=== PATIENT | male | born 1945 | race Caucasian/White ===

== ENCOUNTER 2016-09-14 15:39 | Inpatient (IN) | payer OTHER ==
--- NOTE | 2016-09-14 16:17 | DX ---
PA and lateral chest. September 14, 2016. Clinical History: Lung biopsy last Monday, chest pain. Comparison Study: None available. Findings: There is a 2.8 cm nodule in the left upper lobe. A small left apical pneumothorax is estima amado at 10%, with minimal tracking laterally. There is a small associated pleural effusion on the left . Right lung is clear. Heart size is normal.. Impression: Left upper lobe nodule. Small left apical pneumothorax with small left pleural effusion. Results called to Dr. Melissa Linares at 4:15 PM.
--- NOTE | 2016-09-14 16:27 | EDPHY ---
H & P Stated Complaint: +SOB wants CXR Lung CA Source: Patient, Family Exam Limitations: No limitations - Personal History Current Tetanus/Diphtheria Vaccine: Unsure Current Tetanus Diphtheria and Acellular Pertussis (TDAP): Unsure Tetanus Vaccine Date: 2007 - Medical/Surgical History Hx Asthma: No Hx Chronic Respiratory Disease: No Hx Diabetes: No Hx Cardiac Disease: No Hx Renal Disease: No Hx Cirrhosis: No Hx Alcoholism: No Hx HIV/AIDS: No Hx Splenectomy or Spleen Trauma: No Other PMH: pmh- uriticaria, enlarged prostate, hld - Social History Smoking Status: Never smoked HPI/ROS: CHIEF COMPLAINT: Possible pneumothorax HISTORY OF PRESENT ILLNESS: on Monday patient underwent a video-assisted thorascopic surgery for lung biopsy due to mass. He was discharged home stable condition. He felt well until late last night. Last night he started using CPAP the 1st time in months, at that time he noted some discomfort and shortness of breath. He turned off the CPAP and quickly felt much better. He had a PET scan earlier this morning, on that they noted a possible pneumothorax in the left apex. He was sent here by his oncologist to further delineate this. Right now he is resting comfortable with no shortness of breath. Does have some changes in his voice over the past few weeks but no fever. No chills. no modifying factors.also has a right-sided PE and was diagnosed initially on August 29. He does not know because of the size it was, but he is on Lovenox once daily for this. He has not taken today's dose. Exam and no other associated complaints or modifying factors REVIEW OF SYSTEMS: Ten systems reviewed and are negative unless otherwise noted in the HPI EXAMINATION General Appearance: Alert, no distress Head: normocephalic, atraumatic Eyes: Pupils equal and round, no conjunctival pallor or injection ENT, Mouth: Mucous membranes moist Neck: Normal inspection, supple, non-tender Respiratory: Lungs are clear to auscultation. Mild diminished on the left. No consolidation, wheezing or rhonchi Cardiovascular: Regular rate and rhythm. No murmur. Pulses intact distally and symmetrically Gastrointestinal: Abdomen is soft and nontender Back: non-tender, no bony abnormalities Neurological: A&O, nonfocal, normal gait Skin: Warm and dry, no rash Extremities: Nontender, no pedal edema Psychiatric: Mood and affect normal DIFFERENTIAL DIAGNOSES: Including but not limited to pneumothorax, pneumonia, bronchitis, pleurisy, PE , lung carcinoma MDM: 4:32 p.m. Recent lung biopsy with pneumothorax on PET scan that is confirmed on x-ray. We were notified by Radiology at 4:13 p.m. that there is a small, left apical pneumothorax. I immediately went to evaluate the patient. Resting comfortably in no acute distress. Vital signs are stable. Does note some mild discomfort of the chest with deep breaths but rest there is no pain. He has no shortness of breath At rest but does have dyspnea on exertion. No fever or chills. No cough or congestion. During my examination he was not on pulse oximetry, thus I put him on it. He was immediately noted to be 85% on room air, thus I placed him on 2 L nasal cannula. immediately improved to 98%. When oxygen is removed, he cycles from 82% to 94%. he remains comfortable without any complaints during this. 4:40 pm I have discussed the case with Dr. Clifton. who is aware of the radiology findings. I informed the patient resting comfortably at this time. He has been off of oxygen for several minutes and remains well above 90%. Discussed that the patient needs repeat x-ray tomorrow morning, but he would have to return to the emergency department immediately should he have any chest pain or worsening shortness of breath. At this time, Dr. Linares is at bedside 4:55 p.m. patient was ambulated with assistance and felt very short of breath. His pulse oximetry was reading in the 80 percentile, 85-89. Thus we will proceed with admission. I have I have just now updated Dr. Clifton, and I will admitted to the hospitalist. 5:15pm I discussed the case with the hospitalist. We did briefly consider sending the patient home with oxygen, with the patient and his significant other at bedside are comfortable with this plan. He will be admitted to the hospital for observation and repeat chest x-ray in the morning with oxygen therapy. He will be admitted by Dr. Naranjo in stable condition. No indication for chest thoracostomy at this time. SUPERVISION:Patient was evaluated in conjunction with the supervising physician. Please see their note for details. (Judson Vargas) Constitutional: Initial Vital Signs Temperature (C) 97.9 F 09/14/16 15:41 Heart Rate 85 09/14/16 15:41 Respiratory Rate 14 09/14/16 15:41 Blood Pressure 102/74 09/14/16 15:41 O2 Sat (%) 91 L 09/14/16 15:41 O2 Delivery Mode Room Air Allergies/Adverse Reactions: Sulfa (Sulfonamide Antibiotics) Allergy (Unknown, Verified 12/25/14 17:21) Home Medications: Medication Instructions Recorded Ascorbic Acid [Vitamin C 500 mg 500 mg PO DAILY 10/17/12 (OTC)] Cholecalciferol Vit D3 [Vitamin D3 5,000 units PO DAILY 10/17/12 1000 units (OTC)] Dutasteride [Avodart 0.5 MG (RX)] 0.5 mg PO HS 10/17/12 Herbals/Supplements -Info Only 1 each PO AD 10/17/12 Multivitamins [Tab-A-Sanford] 1 each PO DAILY 10/17/12 Morrison-3 Fatty Acids/Fish Oil [Fish 1 each PO DAILY 10/17/12 Oil 1,200 mg Softgel] Pharmacy Completed 10/17/12 10/17/12 EPINEPHrine [Epipen 0.3 MG] 0.3 mg IM ONCE #2 syr 12/18/14 predniSONE [prednisone 20mg (RX)] 3 tab PO DAILY #15 tab 12/18/14 Lexapro 12/25/14 Medical Decision Making ED Course/Re-evaluation: This patient was seen and examined by me. Chest is clear to auscultation. Chest x-ray reveals a small pneumothorax on the left. Oxygen saturation is 90% on room air and fluctuates down to 82%. Patient ambulated throughout the emergency department, felt short of breath and his oxygen saturation was 88-90% . He will be admitted to the hospitalist service. He does not require tube thoracostomy tonight. (Melissa Linares) Departure - Departure Disposition: [facility] Acute Clinical Impression: Pneumothorax after biopsy Carcinoma, lung Qualifiers: Qualifier Code: (C34.90) Malignant neoplasm of unspecified part of unspecified bronchus or lung Pulmonary embolism Qualifiers: Qualifier Code: (I26.99) Other pulmonary embolism without acute cor pulmonale Condition: Good Instructions: Traumatic Pneumothorax (ED) Referrals: David Damian MD [Primary Care Provider] - As per Instructions
--- NOTE | 2016-09-14 18:34 | GHP ---
[f rep st] HISTORY AND PHYSICAL DATE OF ADMISSION: 09/14/2016 HISTORY OF PRESENT ILLNESS: The patient is a 71-year-old gentleman with newly diagnosed lung cancer who presents with shortness of breath. The patient had a PET scan today where an incidental pneumoth orax was noted. He was advised to come to the emergency department. Notably, he has gotten his care at [place] but came to the hospital here today. Chest x-ray confirmed 10% pneumothorax. He notes some shortness of breath. Pneumothorax on the left side. Has some pain on the right side. He had a pul monary embolism on the right side diagnosed in [place], for which he is taking Lovenox once daily. I suspect this is 1.5 mg/kg daily. He has had no hemoptysis, no fever, chills, lightheadedness, dizziness. He has just been diagnosed with lung cancer. He does not have a plan for treatment yet. REVIEW OF SYSTEMS: Complete 10-point review of systems conducted, negative, except as noted in the H PI. PAST MEDICAL HISTORY: 1. Pulmonary embolism, clot burden unknown. There was DVT associated with this below the knee. 2. Obstructive sleep apnea. 3. Recent diagnosis of lung cancer. 4. Benign prostatic hypertrophy. ALLERGIES: Sulfa. MEDICATIONS: Home medications have not been reconciled. The list is 4 years old, so likely to be in accurate. Does include Lovenox. SOCIAL HISTORY: Lifelong nonsmoker. Drinks wine minimally. 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 FAMILY HISTORY: Parents . PHYSICAL EXAM: VITAL SIGNS: Temp 36.6, blood pressure 102/74, pulse 85, breathing 14 times a minute , 91% on room air. Desaturating into the low 80s with ambulation. GENERAL: No acute distress. SUKHWINDER NT: Sclerae anicteric. Oropharynx clear. Mucous membranes are moist. NECK: Supple, without lymph adenopathy or JVD. LUNGS: Clear to auscultation bilaterally. HEART: S1, S2. ABDOMEN: Soft, nont nelly, nondistended. LOWER EXTREMITIES: No edema. Calves nontender. SKIN: Without rash. NEUROLO GIC: Exam is grossly nonfocal. LABS: None. Chest x-ray, interpreted by me, shows 10% pneumothorax on the left. There are no visib le pulmonary lesions. There is no shift of the mediastinum. I discussed the case with ANGELIKA Pritchett, in the emergency department. ASSESSMENT/PLAN: A 71-year-old gentleman with recent pulmonary embolism, recent diagnosis of lung ca ncer, and postprocedural pneumothorax. 1. Pneumothorax. Admit the patient for observation, chest x-ray in the morning. We will provide ox ygen supplemental therapy. 2. Pulmonary embolism. Continue Lovenox when medications have been reconciled. 3. Lung cancer. He has outpatient followup with Oncology. 4. Prophylaxis, therapeutically anticoagulated. 5. Hypoxia, attributable to the small pneumothorax, as well as some lung disease and recent pulmonar y embolism. 6. Disposition: Observation status. /[id number]/MODL
[2016-09-14 18:58] LABS: % IMMATURE GRANULYOCYTES 0.5 % (0.0-1.1); ABSOLUTE IMMATURE GRANULOCYTES 0.07 10^3/uL (0.00-0.10); ADD DIFF? NO; ADD MORPH? NO; ADD SCAN? NO; ATYPICAL LYMPHOCYTE FLAG 0 (0-99); FRAGMENT RBC FLAG 0 (0-99); HEMATOCRIT 41.5 % (40.0-51.0); HEMOGLOBIN 13.8 g/dL (13.7-17.5); LEFT SHIFT FLG 0 (0-99); LIPEMIA HEMOLYSIS FLAG 80 (0-99); MEAN CELL HEMOGLOBIN 29.2 pg (27.9-34.1); MEAN CELL HEMOGLOBIN CONCENTR. 33.3 g/dL (32.4-36.7); MEAN CELL VOLUME 87.9 fL (81.5-99.8); MEAN PLATELET VOLUME 10.9 fL (8.7-11.7); PLATELET CLUMPS FLAG 0 (0-99); PLATELET COUNT 267 10^3/uL (150-400); RED BLOOD CELL COUNT 4.72 10^6/uL (4.40-6.38); RED CELL DISTRIBUTION WIDTH 12.8 % (11.5-15.2)
[2016-09-14] MEDS ORDERED: NON-FORMULARY NEW DRUG (Mirtazapine [Mirtazapine] 15 MG) PO PRN (19:03)
[2016-09-14] MEDS ORDERED: MIRTAZAPINE 15 MG TAB PO PRN (19:10)
[2016-09-14 19:22] LABS: ANION GAP 12 mEq/L (8-16); CALCIUM 9.8 mg/dL (8.5-10.4); CARBON DIOXIDE 27 mEq/l (22-31); CHLORIDE 102 mEq/L (97-110); CREATININE 1.2 mg/dL (0.7-1.3); GLOMERULAR FILTRATION RATE 60; GLUCOSE 88 mg/dL (70-100); POTASSIUM 4.3 mEq/L (3.5-5.2); SODIUM 141 mEq/L (134-144)
[2016-09-14] MEDS: traZODone 50 MG TAB PO SCH (21:27)
[2016-09-14] MEDS: oxyCODONE IR 5 MG TAB PO PRN (21:33)
[2016-09-14] MEDS: DUTASTERIDE 0.5 MG CAP PO SCH (22:10)
--- NOTE | 2016-09-14 23:59 | CPEKG ---
Heart Rate: 89 RR Interval: 674 P-R Interval: 160 QRSD Interval: 94 QT Interval: 356 QTC Interval: 434 P Lindale: 70 QRS [place]: 42 T Wave [place]: -3 EKG Severity - BORDERLINE ECG - EKG Impression: SINUS RHYTHM EKG Impression: BORDERLINE T ABNORMALITIES, DIFFUSE LEADS Electronically Signed By: Andrea Blas 15-Sep-2016 18:12:26
[2016-09-15] MEDS ORDERED: HYDROmorphONE/DILAUDID 2 MG/ML SYR IVP PRN (00:39)
[2016-09-15] MEDS ORDERED: HYDROmorphONE/DILAUDID 2 MG/ML SYR ONE (00:43)
[2016-09-15] MEDS: HYDROmorphONE/DILAUDID 1 MG/ML SYR IVP PRN ×5 (00:45→21:27)
[2016-09-15] MEDS: oxyCODONE IR 5 MG TAB PO PRN ×3 (07:41→18:13)
[2016-09-15] MEDS: MAGNESIUM OXIDE 400 MG TAB PO SCH (07:43)
[2016-09-15] MEDS: MULTIVITAMINS 1 EACH TAB PO SCH (07:44)
[2016-09-15] MEDS: ATORVASTATIN CALCIUM 20 MG TAB PO SCH (07:44)
[2016-09-15] MEDS: TRIAMTERENE/HCTZ 37.5/25 1 EACH CAP PO SCH (07:44)
--- NOTE | 2016-09-15 07:51 | DX ---
Portable Chest 00:26 AM History: Right chest pain Comparison: September 14, 2016 Findings: Although difficult to visualize a left apical pneumothorax and an irregular mass at the lef t apex has not significantly changed. There is no evidence for tension. Inspiratory phase is decrease d. Vascular crowding at the bases leads to some subtle air bronchogram formation at the left base. Th e right lung is normally aerated. There is stable elevation of the right hemidiaphragm. Oxygen tubing overlies the chest. Impression: No source for right chest pain identified. Stable left pneumothorax.
[2016-09-15] MEDS ORDERED: ENOXAPARIN 120 MG/0.8 ML SYR SC SCH (09:00)
[2016-09-15] MEDS ORDERED: NON-FORMULARY NEW DRUG (Magnesium Oxide [Magnesium] 500 MG) PO SCH (09:00)
--- NOTE | 2016-09-15 10:22 | HOSPPROG ---
Hospitalist Progress Note Assessment/Plan: Mr Alvarenga is a 71 y/o male who was dx w lung ca who presented to ER with increasing shortness of breath. It was noted he had a PET scan were an incidental pneumothorax was noted. He was also diagnosed with a PE on the right side for which he takes Lovenox. Today is my 1st encounter with the patient. Reviewed his care with Dr. Cece Avina with Oncology. #R chest wall pain * this occurred acutely last night and is ongoing * chest x-ray shows a small left pneumothorax * recently diagnosed with pulmonary emboli but I am unsure of his clot burden * due to acute pain, will get a CTA now/ spoke with Dr Avina who spoke with the patient, he has been off his OAC for a recent lung biopsy for >72 hours * will try to arrange to get his records sent from [place] * will get an echo now # pneumothorax/ left-sided * repeat chest x-ray shows no acute change * will get a repeat x-ray in the morning # PE * will get an echocardiogram to evaluate for right heart strain * he does not think he had this done in [place] * will change Lovenox to twice daily # recent diagnoses of lung cancer * oncologist to see today * PET scan pending #. hypoxemia * on 2.5 liters of O2 #. Plan: due to his acute pain and needing further evaluation from an echo cardiogram and CTA, the patient require another midnight stay for careful evaluation. Will get a repeat chest x-ray in the morning. If the pneumothorax on the left side is stable, will discharge in the morning. also discussed with Oncology if the patient can be placed on Eliquis, or warfarin or Xarelto. Subjective: Juan is complaining of pain in the right chest wall area every time he takes a deep breath in. the pain medications have helped. Objective: Vital Signs Temp Pulse Resp BP Pulse Ox 36.3 C 85 22 H 163/92 H 92 09/15/16 08:31 09/15/16 08:31 09/15/16 08:31 09/15/16 08:31 09/15/16 08:31 Laboratory Results 09/14/16 18:49 09/14/16 18:49 09/14/16 09/15/16 09/16/16 05:59 05:59 05:59 Output Total 350 Balance -350 - Physical Exam Constitutional: appears nourished, uncomfortable, No not in pain Eyes: PERRL Ears, Nose, Mouth, Throat: hearing normal Cardiovascular: regular rate and rhythym, no murmur, rub, or gallop Respiratory: no respiratory distress, reduced air movement ( bibasilar) Gastrointestinal: normoactive bowel sounds, soft, non-tender abdomen Skin: warm Musculoskeletal: full muscle strength Neurologic: AAOx3 Psychiatric: interacting appropriately ICD10 Worksheet Patient Problems: Problems Problem Status Diagnosed Carcinoma, lung Acute Pneumothorax after biopsy Acute Pulmonary embolism Acute
[2016-09-15] MEDS: ENOXAPARIN 80 MG/0.8 ML SYR SC SCH ×2 (11:14→21:27)
[2016-09-15] MEDS: NS 1,000 ML IV SCH ×2 (12:07→21:28)
--- NOTE | 2016-09-15 13:07 | GCON ---
[f rep st] CONSULTATION ONCOLOGY CONSULTATION. REASON FOR CONSULTATION: Recent diagnosis of pulmonary emboli, probable lung cancer and pneumothorax. HISTORY OF PRESENT ILLNESS: Alberto Alvarenga is a very pleasant 71-year-old male who is admitted with postprocedural pneumothorax after biopsy for a lung mass. The patient has generally been in excellent health. He was evaluated in the fall by Dr. Cisneros for a mild leukocytosis. He had a monoclonal B-cell lymphocytosis which was likely not clinically significant. His white blood cell count was 13,000 and the plan was continued observation. More recently, Alberto went to [place] to visit his son, and while there, developed acute right-sided chest pain. He was admitted to a hospital there on August 28, and was diagnosed with a pulmonary emboli, which he believes was on the right. He also was told that he had pneumonia and was given a course of antibiotics with Augmentin and was discharged on August 30 with a daily injection of the [place] equivalent of Lovenox (questionable Cladrix?). He was taking the daily anticoagulant and stayed in [place] for a week after the hospitalization until his oxygenation improved. He had a followup chest x-ray that then raised the concern of a lung mass. He [place] the [place] on the and saw his primary care doctor, Dr. Bob Damian. Dr. Damian ordered a CT- guided biopsy of the left-sided lung mass which was done at [facility] on Monday, September 11. In preparation for the biopsy, Alberto took the daily Lovenox on Monday, but did not take it Monday, Monday, and resumed it late Monday evening. He was contacted yesterday by his primary care physician who told him the biopsy showed cancer, but he does not have any specifics. He had a PET CT yesterday at [facility] to stage the malignancy, and was noted to incidentally have a left sided pneumothorax. He was contacted by our office and asked to go to the emergency room for further evaluation. He felt that his breathing has been near normal since he has returned to the [place] however, yesterday afternoon and the evening, he started developing some uncomfortable sensations in his right chest, and then last evening fairly acutely around 10:00 p.m., developed severe pleuritic right-sided chest pain. He is currently feeling a bit more comfortable and is requiring 2 L of oxygen to maintain an O2 saturation of 92%. Alberto has generally been in excellent health. He has had a longstanding history of low back pain, but in the last few months, he has developed increasingly severe right hip pain to the point it was painful to even bear weight on it. He has lost about 6 pounds. His girlfriend questions whether or not his voice may have changed somewhat in the last few days. He denies any other new pains. PAST MEDICAL HISTORY: He has coronary artery disease but no prior OH, hypercholesterolemia, history of hematuria. PREVIOUS SURGERIES: Hernia repair and ankle surgery. FAMILY HISTORY: Notable for his father and sister both having lung cancer, and they were both smokers. SOCIAL HISTORY: He has never smoked cigarettes. He drinks alcohol socially. He is retired. He has 2 sons. One lives in [facility] and 1 lives here in [place]. His from Alzheimer's in April 2016, and he was understandably under a great deal of stress. REVIEW OF SYSTEMS: A 10-point review of systems is negative other than noted in HPI. It should be noted that he has not had any fever. PHYSICAL EXAMINATION: Blood pressure 163/92, heart rate 85, respirations 22, O2 sat 92% on 2.5 L. GENERAL: He is relatively comfortable appearing, but shallow breathing. HEENT: Pupils equal. Sclerae anicteric. Oropharynx clear. NECK: Supple without cervical or supraclavicular adenopathy. LUNGS: Notable for crackles at the left base. The right lung is clear. He is not able to comfortably take a deep breath due to right-sided pleuritic pain. ABDOMEN: Soft, nontender without organomegaly. EXTREMITIES: No edema. LABORATORY DATA: White blood cell count 13.8, hematocrit 41.5, platelets 267. Metabolic panel: Basic metabolic panel is unremarkable. IMPRESSION: This is a 71-year-old previously healthy male who recently developed pulmonary emboli and during the evaluation for that, was found to have a left-sided lung mass. He underwent CT-guided biopsy of the mass earlier in the week and was off of his daily Lovenox equivalent for 3 days around the procedure. The biopsy reportedly shows malignancy and had a PET CT done yesterday, that the details are not yet known. He was found to incidentally have a pneumothorax, likely related to the procedure. He has developed acute chest pain last evening on the side opposite of the biopsy. I am concerned that the patient may have had recurrent pulmonary emboli, especially in the setting of being off of his anticoagulation for almost 3 days. PLAN: Will get a copy of the pathology report from [facility] and review the results of his PET CT from yesterday. I think another CT angiogram is appropriate, and his girlfriend is going to bring in the disk of the CT angiogram that was done with his initial presentation in [place] in early August. He may have had another event. For the time being, I think it is reasonable to switch the Lovenox to b.i.d. dosing 1 mg/kg b.i.d. Will continue to follow along with you. /[id number]/MODL MTDD
[2016-09-15] MEDS ORDERED: IOPAMIDOL (ISOVUE 370) 100 ML BTL IV ONE (13:21)
--- NOTE | 2016-09-15 14:48 | CT ---
CT Pulmonary Angiogram at 1354 Hours Clinical Indications: Increased shortness of breath. Known pulmonary embolus. Recent lung biopsy wit h pneumothorax. Technique:: Thinly collimated multidetector helical CT imaging was performed through the chest while 90 mL [id number]-[id number] were injected intravenously without complication. The images were then transferred to an independent workstation where multiplanar and three-dimensional reconstructions were performed by the interpreting physician and reviewed at multiple windows. Dose reduction techniques were utili zed. Findings: Pulmonary angiogram: Filling defect is seen in the right middle lobe pulmonary arteries indicating pu lmonary embolus. No definite pulmonary embolus is seen on the left. There is mild clot burden. No shreya dence for aortic dissection. CT chest: Vascular calcifications are seen in the coronary arteries. Heart size is enlarged. Mild per icardial effusion. Small to moderate left pneumothorax. Mass is seen in the left upper lobe toward th e apex posteriorly. This measures 2.4 x 2.6 cm. Atelectasis is seen in both lower lobes. Atelectasis is seen inferiorly in the lingula and right middle lobe. Minimal pleural effusion on the right. Impression: 1. Evidence of pulmonary embolus with mild clot burden in the right middle lobe. 2. [id number] left pneumothorax. Left upper lobe mass suspicious for lung carcinoma. It has be en reportedly biopsied with a pneumothorax. 3. Evidence of atherosclerotic disease in the coronary arteries. Mild pericardial effusion. 4. Atelectasis both lung bases and both lower lobes and also small amount of atelectasis in the lingu la and right middle lobe. Results discussed with [employer].
--- NOTE | 2016-09-15 15:51 | ECHO ---
[id number] + + [address] : : [place] [id number] : : [phone] + + Adult Echocardiographic Report + -----+ :Name: OSIEL SIMPSON EStudy Date: 09/15/2016 10:51 AM : : Hospital Admission Number: [id number] Location : 386: :: 1945 Gender: Male Height: 68 in : :Age: 71 yrs Race: WH Weight: 167 lb : :Reason For Study: Eval RV Fx : : BSA: 1.9 meters2 : :History: Lung Carcinoma, Pneumotthorax : + -----+ MMode/2D Measurements & Calculations IVSd: 0.81 cm LVIDd: 5.3 cm FS: 48.0 % Ao root diam: 3.0 cm LVPWd: 1.1 cm LVIDs: 2.7 cm EDV(Teich): 132.5 ml ACS: 1.3 cm ESV(Teich): 27.8 ml EF(Teich): 79.0 % Normal Measurement Values: + + :LVIDd (3.5-5.7cm) IVSd (0.6-1.1cm) LVPWd (0.6-1.1cm) Aortic Root (2.0-3.7cm)Left Atrium (1.5-4.0cm): :LV Vol(d) (76-115ml) LV Vol(s) (29-48ml) Ejec Fraction (50-65%)PV Jesse (0.6- 1.2m/s) TV Jesse (0.4-1.0m/s) : :MV E Jesse (0.8-1.0m/s)MV A Jesse (0.3-1.0m/s)LVOT Jesse (0.7-1.2m/s) Asc Ao Jesse ( 0.9-1.8m/s) : + + Doppler Measurements & Calculations MV E max jesse: Ao V2 max: LV V1 max: PA V2 max: 54.3 cm/sec 126.2 cm/sec 104.6 cm/sec 73.3 cm/sec MV A max jesse: Ao max PG: LV V1 max PG: PA max P.1 cm/sec 6.4 mmHg 4.4 mmHg 2.1 mmHg MV E/A: 0.80 TR max jesse: 244.3 cm/sec TR max P.9 mmHg RAP systole: 5.0 mmHg RVSP(TR): 28.9 mmHg Left Ventricle The left ventricle is normal in size. There is normal left ventricular wall thickness. The left ventricular ejection fraction is normal. There is Doppler evidence for diastolic dysfunction. Ejection Fraction = 79%. The left ventricular wall motion is normal. Right Ventricle The right ventricle is normal in size and function. Atria The left atrial size is normal. Right atrial size is normal. Mitral Valve The mitral valve is normal in structure and function. There is no evidence of mitral valve prolapse. There is no mitral valve stenosis. There is no mitral regurgitation noted. Tricuspid Valve There is trace tricuspid regurgitation. Unable to assess PA systolic pressure. Aortic Valve The aortic valve is trileaflet. There is no aortic stenosis. There is no aortic insufficiency. Pulmonic Valve The pulmonic valve is normal in structure and function. There is no pulmonic valvular regurgitation. Great Vessels The aortic root is normal size. Pericardium/Pleural Small pericardial effusion. A circumferential pericardial effusion is noted. There are no echocardiographic indications of cardiac tamponade. Conclusion A complete two-dimensional transthoracic echocardiogram was performed (2D, M-mode, Doppler and color flow Doppler). The left ventricular ejection fraction is normal. There is Doppler evidence for diastolic dysfunction. Ejection Fraction = 79%. The left ventricular wall motion is normal. The right ventricle is normal in size and function. The left atrial size is normal. The mitral valve is normal in structure and function. There is trace tricuspid regurgitation. Unable to assess PA systolic pressure The aortic valve is trileaflet. The pulmonic valve is normal in structure and function. The aortic root is normal size. The short axis views were obtained from the subcostal view due to lung interference. Small pericardial effusion. A circumferential pericardial effusion is noted. There are no echocardiographic indications of cardiac tamponade. No prior echo Final Reading Physician: Dr Gali Vega electronically signed on 09/15/2016 03:50 PM Ordering Physician: Ofe Steel Performed By: Marciano Toledo, CS
--- NOTE | 2016-09-15 16:16 | DX ---
Portable Chest, Single View, September 15, 2016 Comparison: September 14, 2016. History: Pneumothorax. Follow up. Findings: There is a small to moderate left pneumothorax stable in appearance. Rounded opacification is seen in the left upper lobe suggesting a mass. Atelectasis seen in both lower lobes which has incr eased over the interval. Heart size is stable. Impression: Stable left pneumothorax. Atelectasis of both lower lobes which has increased over the in terval.
[2016-09-15] MEDS: DUTASTERIDE 0.5 MG CAP PO SCH (21:27)
[2016-09-15] MEDS: LORazepam 1 MG TAB PO PRN (21:27)
[2016-09-15] MEDS: traZODone 50 MG TAB PO SCH (21:27)
[2016-09-16] MEDS: HYDROmorphONE/DILAUDID 1 MG/ML SYR IVP PRN (03:06)
[2016-09-16 05:26] LABS: % IMMATURE GRANULYOCYTES 0.3 % (0.0-1.1); ABSOLUTE IMMATURE GRANULOCYTES 0.03 10^3/uL (0.00-0.10); ADD DIFF? NO; ADD MORPH? NO; ADD SCAN? NO; ATYPICAL LYMPHOCYTE FLAG 0 (0-99); FRAGMENT RBC FLAG 0 (0-99); HEMATOCRIT 36.2 % (40.0-51.0); HEMOGLOBIN 12.2 g/dL (13.7-17.5); LEFT SHIFT FLG 0 (0-99); LIPEMIA HEMOLYSIS FLAG 80 (0-99); MEAN CELL HEMOGLOBIN CONCENTR. 33.7 g/dL (32.4-36.7); MEAN CELL VOLUME 88.9 fL (81.5-99.8); MEAN PLATELET VOLUME 10.9 fL (8.7-11.7); PLATELET CLUMPS FLAG 0 (0-99); PLATELET COUNT 204 10^3/uL (150-400); RED BLOOD CELL COUNT 4.07 10^6/uL (4.40-6.38); RED CELL DISTRIBUTION WIDTH 12.8 % (11.5-15.2)
[2016-09-16 05:37] LABS: ANION GAP 7 mEq/L (8-16); CALCIUM 8.8 mg/dL (8.5-10.4); CARBON DIOXIDE 29 mEq/l (22-31); CHLORIDE 105 mEq/L (97-110); CREATININE 1.1 mg/dL (0.7-1.3); GLOMERULAR FILTRATION RATE > 60; GLUCOSE 94 mg/dL (70-100); POTASSIUM 3.9 mEq/L (3.5-5.2); SODIUM 141 mEq/L (134-144)
[2016-09-16] MEDS: oxyCODONE IR 5 MG TAB PO PRN ×3 (08:39→20:35)
[2016-09-16] MEDS: TRIAMTERENE/HCTZ 37.5/25 1 EACH CAP PO SCH (08:41)
[2016-09-16] MEDS: MAGNESIUM OXIDE 400 MG TAB PO SCH (08:41)
[2016-09-16] MEDS: MULTIVITAMINS 1 EACH TAB PO SCH (08:41)
[2016-09-16] MEDS: ENOXAPARIN 80 MG/0.8 ML SYR SC SCH ×2 (08:41→20:28)
[2016-09-16] MEDS: ATORVASTATIN CALCIUM 20 MG TAB PO SCH (08:41)
--- NOTE | 2016-09-16 09:17 | DX ---
Chest, PA and Lateral, 08:51 History: Follow-up left pneumothorax post lung biopsy for left upper lobe mass Comparison: Yesterday 13:50 Findings: There is perhaps slight improvement in the still moderate left apical pneumothorax. There i s no evidence for tension. Difficult to exclude a small posterior pleural effusions. Bibasilar conso lidation remains. Impression: Perhaps slight improvement in the left pneumothorax.
--- NOTE | 2016-09-16 11:12 | HOSPPROG ---
Hospitalist Progress Note Assessment/Plan: Mr Alvarenga is a 71 y/o male who was dx w lung ca who presented to ER with increasing shortness of breath. It was noted he had a PET scan were an incidental pneumothorax was noted. He was also diagnosed with a PE on the right side for which he takes Lovenox. #R chest wall pain * ongoing, from multiple clots on on right/ also has r middle lobe atelectasis * chest x-ray shows a small left pneumothorax/improving * echo doesn't note any right heart strain * requiring pain medications # pneumothorax/ left-sided * repeat chest x-ray shows improvement * will get a repeat x-ray in the morning # PE * Lovenox bid/ will ask oncology about starting him on OAC # recent diagnoses of lung cancer * Dr Avina updated him on her evaluation of PET scan * has mets to bones per patient #. hypoxemia * on 2.5 liters of O2 * will need this at dc #. Plan: will ask PT and OT to see/ patient is concerned about flights of stairs, needing O2 and feeling poorly. CM involved helping arrange home care. Subjective: Juan said his pain is well controlled during my interview. He is very concerned about going home. Objective: Vital Signs Temp Pulse Resp BP Pulse Ox 36.7 C 77 14 132/73 H 85 L 09/16/16 08:26 09/16/16 08:26 09/16/16 08:26 09/16/16 08:26 09/16/16 10:44 Laboratory Results 09/16/16 05:11 09/16/16 05:11 - Physical Exam Constitutional: appears nourished Eyes: PERRL, anicteric sclera Ears, Nose, Mouth, Throat: hearing normal Cardiovascular: regular rate and rhythym Respiratory: no respiratory distress, reduced air movement (right base into middle lobe area, left base) Gastrointestinal: normoactive bowel sounds Skin: warm Musculoskeletal: generalized weakness Neurologic: AAOx3 Psychiatric: interacting appropriately, anxious ICD10 Worksheet Patient Problems: Problems Problem Status Diagnosed Carcinoma, lung Acute Pneumothorax after biopsy Acute Pulmonary embolism Acute
--- NOTE | 2016-09-16 14:45 | SOAPPROG ---
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 I requested molecular studies (EGFR, ALK, ROS1) on the [facility] bx. I spoke with Dr. Fraire and sent an order for radiation oncology consultation on Monday for palliative radiation to the right hip. Discussed the dx with the pat and his significant other. He will need systemic therapy - specifics dependent on pending studies. Discussed palliative RT to hip for pain control. He has an appt with Dr. Cisneros on Monday morning. * PE: unclear if new PE on enoxaparin QD (started 08/30/16). Would continue with BID dosing rather than starting an OAC right now. This may be an option in the future, but would not change therapy right now. 45 min with patient and coordinating care. 09/16/16 14:48 Subjective: Still with right pleuritic pain and right hip pain. Pain meds are helping. Anxious. O: VS reviewed. Gen: A&O, mildly anxious. Lungs: full sentences without difficulty. Objective: Vital Signs Temp Pulse Resp BP Pulse Ox 36.7 C 77 14 132/73 H 85 L 09/16/16 08:26 09/16/16 08:26 09/16/16 08:26 09/16/16 08:26 09/16/16 10:44 Laboratory Results 09/16/16 05:11 09/16/16 05:11 ICD10 Worksheet Patient Problems: Problems Problem Status Diagnosed Carcinoma, lung Acute Pneumothorax after biopsy Acute Pulmonary embolism Acute
[2016-09-16] MEDS: LORazepam 1 MG TAB PO PRN (20:28)
[2016-09-16] MEDS: DUTASTERIDE 0.5 MG CAP PO SCH (20:28)
[2016-09-16] MEDS: traZODone 50 MG TAB PO SCH (20:32)
[2016-09-17] MEDS: oxyCODONE IR 5 MG TAB PO PRN ×2 (02:03→12:49)
[2016-09-17 07:55] VITALS: BP 130/83; PULSE 81; RESP 18; TEMP 98.1
[2016-09-17] MEDS: ENOXAPARIN 80 MG/0.8 ML SYR SC SCH (08:17)
[2016-09-17] MEDS: TRIAMTERENE/HCTZ 37.5/25 1 EACH CAP PO SCH (08:18)
[2016-09-17] MEDS: MULTIVITAMINS 1 EACH TAB PO SCH (08:19)
[2016-09-17] MEDS: ATORVASTATIN CALCIUM 20 MG TAB PO SCH (08:19)
[2016-09-17] MEDS: MAGNESIUM OXIDE 400 MG TAB PO SCH (08:19)
--- NOTE | 2016-09-17 08:52 | DX ---
PA and Lateral Chest September 17, 2016, 8:22 a.m. Indication: Monitor pneumothorax. Comparison: Two-view chest dated September 16, 2016. Findings: The small left apical pneumothorax is minimally improved since 23 hours prior. The apex of the left lung now overlies the inferior cortex of the posterior left third rib (previously fourth pos terior rib). Bibasilar atelectasis and diffuse peribronchial thickening are unchanged. Trace bilatera l pleural effusions unchanged. Heart size normal. Nodule in left lung apex unchanged. Impression: 1. Improving small left apical pneumothorax. 2. Bibasilar atelectasis and trace bilateral pleural effusions, unchanged. 3. Left apical nodule.
--- NOTE | 2016-09-17 09:53 | HOSPPROG ---
Hospitalist Progress Note Assessment/Plan: Mr Alvarenga is a 71 y/o male who was dx w lung ca who presented to ER with increasing shortness of breath. It was noted he had a PET scan were an incidental pneumothorax was noted. He was also diagnosed with a PE on the right side for which he takes Lovenox. #R chest wall pain * ongoing, from multiple clots on on right/ also has r middle lobe atelectasis * chest x-ray shows a small left pneumothorax/improving * echo doesn't note any right heart strain * requiring pain medications # pneumothorax/ left-sided * repeat chest x-ray shows it is improving and resolving # PE * Lovenox bid/ to discuss w Dr Cisneros treatment options # Metastatic lung cancer to the bone * to see radiation oncologist #. hypoxemia * on 2.5 liters of O2 * will need this at dc/O2 sats on room air in the mid 80's #. Plan: dc home/f/u with Dr Cisneros/will need oxygen and home care Subjective: Alberto is feeling his breathing is better. Objective: Vital Signs Temp Pulse Resp BP Pulse Ox 36.7 C 81 18 130/83 H 94 09/17/16 07:52 09/17/16 07:52 09/17/16 07:52 09/17/16 07:52 09/17/16 07:52 Laboratory Results 09/16/16 05:11 09/16/16 05:11 09/16/16 09/17/16 09/18/16 05:59 05:59 05:59 Intake Total 850 Output Total 1130 Balance -280 - Physical Exam Constitutional: appears nourished Eyes: PERRL Ears, Nose, Mouth, Throat: hearing normal Cardiovascular: regular rate and rhythym Respiratory: no respiratory distress, reduced air movement (right base) Gastrointestinal: normoactive bowel sounds Skin: warm Musculoskeletal: no muscle tenderness, generalized weakness Neurologic: AAOx3 Psychiatric: interacting appropriately, anxious ICD10 Worksheet Patient Problems: Problems Problem Status Diagnosed Carcinoma, lung Acute Pneumothorax after biopsy Acute Pulmonary embolism Acute
--- NOTE | 2016-09-17 10:05 | PDIAF ---
- Diagnosis Diagnosis: Pneumothorax, lung ca, pulmonary emboli Code Status: Full Code - Medication Management Discharge Medications: Medications to Continue on Transfer Multivitamins [Multivitamin (*)] 1 each PO DAILY 10/17/12 [Last Taken 10/16/12] EPINEPHrine [Epipen 0.3 MG] 0.3 mg IM ONCE #2 syr 12/18/14 [Last Taken Unknown] Atorvastatin Calcium [Lipitor 20 mg (*)] 20 mg PO HS 09/14/16 [Last Taken Unknown] Dutasteride 0.5 mg PO HS 09/14/16 [Last Taken Unknown] MIRTAZAPINE 15 mg PO HS PRN 09/14/16 [Last Taken Unknown] Magnesium Oxide [Magnesium] 500 mg PO DAILY 09/14/16 [Last Taken Unknown] Triamterene/Hydrochlorothiazid [Triamterene-Hctz 37.5-25 mg Cp] 1 each PO DAILY 09/14/16 [Last Taken Unknown] traZODone [traZODONE 50MG (*)] 50 mg PO HS 09/14/16 [Last Taken Unknown] Enoxaparin [Lovenox 80 MG (*)] 80 mg SC BID #14 syr 09/17/16 [Last Taken Unknown ] oxyCODONE IR [Oxycodone Ir (*)] 5 - 10 mg PO QID PRN #20 tab 09/17/16 [Last Taken Unknown] Discharge Medications: Refer to the Discharge Home Medication list for PRN reason. - Orders Services needed: Home Care, Registered Nurse, Physical Therapy, Occupational Therapy Home Care Face to Face: I certify that this patient was under my care and that I had the required [id number] encounter meeting the encounter requirements on the discharge day. My findings support the fact that the patient is homebound as defined in CMS Chapter 7 Medicare Benefits Manual 30.1.1, The condition of the patient is such that there exists a normal inability to leave home and consequently, leaving home would require a considerable and taxing effort. Diet Recommendation: no restrictions on diet Diet Texture: Regular Texture Diet Activity/Weight Bearing Restrictions: as tolerated/ needs strengthening and endurance exercises. Needs oxygen levels monitored. - Follow Up Care Current Providers and Referrals: Rodrigue Cisneros MD [Medical Doctor] - David Damian MD [Primary Care Provider] - As per Instructions
[2016-09-17 14:05] VITALS: O2SAT 93
--- NOTE | 2016-09-17 19:54 | GDS ---
[f rep st] DISCHARGE SUMMARY DISCHARGE DIAGNOSES: 1. Right chest wall pain. 2. Left-sided pneumothorax. 3. Acute Pulmonary emboli. 4. Metastatic lung cancer with metastasis to the bone. 5. Hypoxemia. 6. Atelectasis. CONSULTATIONS: Cece Avina MD with Hematology/Oncology. BRIEF HISTORY: The patient is a 71-year-old gentleman who was newly diagnosed lung cancer. He presented to the emergency room with shortness of breath. He had a PET prior to his admission for evaluation of his lung cancer. It was noted that he had an incidental pneumothorax. The chest x-ray in the ER confirmed an approximately 10% pneumothorax. During his stay most of his pain was all on the right-sided chest wall area. He had known pulmonary emboli that were diagnosed prior to his admission. An echocardiogram was performed to evaluate for right sided heart strain. This showed Doppler evidence for diastolic dysfunction, ejection fraction 79%, his left ventricular wall motion was normal, right ventricle was normal size and function, and the left atrial size was normal. He had a CTA done in [place], but did not have the formal results. Due to his worsening right chest wall pain and being off anticoagulation for a recent biopsy a CTA was performed. This noted that he had evidence of pulmonary embolus with mild clot burden in the right middle lobe. It also noted that he had a [id number] left pneumothorax, his left upper lobe mass is suspicious for lung carcinoma. It noted atelectasis to his both lung bases and both lower lobes and also a small amount of atelectasis in the lingula and right middle lobe. Throughout his stay, he slowly improved. He was seen and evaluated by Dr. Cece Avina as well as Dr. Asha Ruiz with Oncology. The results of the PET scan noted that he had metastatic lung cancer to the bone. He has extensive bone disease including to the right acetabulum. Dr. Ruiz spoke with Dr. Fraire and ordered a Radiation Oncology consult on Monday for palliative radiation to the right hip. He has an appointment with Dr. Cisneros on Monday morning for further followup. HOSPITAL COURSE BY PROBLEM: 1. Right-sided chest wall pain. This was acute. I suspect this was mainly due to the multiple clots on the right, plus he has some right middle lobe round atelectasis. His chest x-ray showed improvement. His echo did not note any right heart strain. I discharged him home on pain medications and he did feel this was improving overall. 2. Pneumothorax, left-sided. A repeat chest x-ray today showed that it is improving and overall resolving. 3. Acute Pulmonary emboli. Lovenox was changed from daily to b.i.d. He will discuss with Dr. Cisneros about other treatment options. 4. Metastatic lung cancer, including metastasis to the bone. He will see Dr. Cisneros on Monday and a radiation oncologist. 5. Hypoxemia due to the pulmonary embolism and pneumothorax. He has been discharged with oxygen. CONDITION AT DISCHARGE: Stable. Blood pressure is 130/83, heart rate 81, respiratory rate is 18, O2 saturations on 1 L 94%, temperature is 36.7 Celsius. MEDICATIONS AT DISCHARGE: Please see the EMR. DISCHARGE INSTRUCTIONS: 1. Follow up with Dr. Cisneros. 2. If he develops worsening chest pain, shortness of breath, return to the emergency room. TIME SPENT: Greater than 30 minutes discharging and coordinating his care. /[id number]/MODL MTDD
== END 2016-09-17 13:40 | disposition home health service (06) | DRG 199 ==
LOC: F3E 17:58 → OBSVTOIN 09-15 10:16
PROVIDERS: ADMIT Internal Medicine; ATTEND Internal Medicine
DX: J95.811 Postprocedural pneumothorax (principal); I26.99 Other pulmonary embolism without acute cor pulmonale; C34.90 Malignant neoplasm of unspecified part of unspecified bronchus or lung; C79.51 Secondary malignant neoplasm of bone; R09.02 Hypoxemia; J98.11 Atelectasis; G47.33 Obstructive sleep apnea (adult) (pediatric); Z86.718 Personal history of other venous thrombosis and embolism; Z80.1 Family history of malignant neoplasm of trachea, bronchus and lung
CPT/HCPCS: 97116-GP; 97162-GP; 97166-GO; G0378; G8978-GP-CI; G8979-GP-CI; G8980-GP-CI; G8987-GO-CJ; G8988-GO-CI; J1170; J1650; Q9967

== ENCOUNTER 2016-09-18 13:35 | Emergency (ER) | payer OTHER ==
[2016-09-18 13:45] VITALS: O2SAT 94
--- NOTE | 2016-09-18 14:01 | EDPHY ---
H & P Stated Complaint: ? Lt arm fx Time Seen by Provider: 09/18/16 14:00 - Personal History Current Tetanus/Diphtheria Vaccine: Yes Current Tetanus Diphtheria and Acellular Pertussis (TDAP): Yes Tetanus Vaccine Date: 2007 - Medical/Surgical History Hx Asthma: No Hx Chronic Respiratory Disease: No Hx Diabetes: No Hx Cardiac Disease: No Hx Renal Disease: No Hx Cirrhosis: No Hx Alcoholism: No Hx HIV/AIDS: No Hx Splenectomy or Spleen Trauma: No Other PMH: pmh- uriticaria, enlarged prostate, hld - Social History Smoking Status: Never smoked Constitutional: Initial Vital Signs Temperature (C) 36.9 C 09/18/16 13:35 Heart Rate 78 09/18/16 13:35 Respiratory Rate 16 09/18/16 13:35 Blood Pressure 127/77 H 09/18/16 13:35 O2 Sat (%) 94 09/18/16 13:35 O2 Delivery Mode Nasal Cannula O2 (L/minute) 2 Allergies/Adverse Reactions: Sulfa (Sulfonamide Antibiotics) Allergy (Unknown, Verified 12/25/14 17:21) Home Medications: Medication Instructions Recorded Multivitamins [Multivitamin (*)] 1 each PO DAILY 10/17/12 EPINEPHrine [Epipen 0.3 MG] 0.3 mg IM ONCE #2 syr 12/18/14 Atorvastatin Calcium [Lipitor 20 20 mg PO HS 09/14/16 mg (*)] Dutasteride 0.5 mg PO HS 09/14/16 MIRTAZAPINE 15 mg PO HS PRN 09/14/16 Magnesium Oxide [Magnesium] 500 mg PO DAILY 09/14/16 Triamterene/Hydrochlorothiazid 1 each PO DAILY 09/14/16 [Triamterene-Hctz 37.5-25 mg Cp] traZODone [traZODONE 50MG (*)] 50 mg PO HS 09/14/16 Enoxaparin [Lovenox 80 MG (*)] 80 mg SC BID #14 syr 09/17/16 oxyCODONE IR [Oxycodone Ir (*)] 5 - 10 mg PO QID PRN #20 tab 09/17/16 Medical Decision Making ED Course/Re-evaluation: CHIEF COMPLAINT: Shoulder pain HISTORY OF PRESENT ILLNESS: The patient is an anticoagulated 71 y/o male, with metastatic lung cancer, complaining of acute onset left shoulder pain thought secondary to a pathologic fracture. He has a history of a recent PE. He was diagnosed with metastases to his left shoulder, hip, and ribs this past week by PET scan. He had a biopsy this past Monday that caused a pneumothorax and he was ultimately admitted. During his admission he developed extreme right chest pain with difficulty breathing that they determined was likely due to his PE. He was discharged yesterday afternoon feeling well. While reaching for a falling bag last night, he says his left shoulder "exploded with pain" and felt like "gravel." The pain extends throughout his upper left arm and has been manageable with home pain medications while lying still, but is aggravated significantly by movement. He is scheduled to see Dr. Cisneros on Monday. REVIEW OF SYSTEMS: A 10 point review of systems was performed and is negative with the exception of the elements mentioned in the history of present illness. PHYSICAL EXAM: HR, BP, O2 Sat, RR. Temp noted General Appearance: Alert, well hydrated, appropriate, and non-toxic appearing. Head: Atraumatic without scalp tenderness or obvious injury Eyes: Pupils equal, round, reactive to light and accommodation, EOMI, no trauma , no injection. Ears: Clear bilaterally, no perforation, normal landmarks Nose: Atraumatic, no rhinorrhea, clear. Throat: There is no erythema or exudates, no lesions, normal tonsils, mucus membranes moist. Neck: Supple, 2+ carotid upstroke, nontender, no lymphadenopathy. Respiratory: No retractions, no distress, no wheezes, and no accessory muscle use. Lungs are clear to auscultation bilaterally. Cardiovascular: Regular rate and rhythm, no murmurs, rubs, or gallops. Bilateral carotid, radial, dorsalis pedis, and posterior tibial pulses intact. Good capillary refill all extremities. Gastrointestinal: Abdomen is soft, nontender, non-distended, no masses, no rebound, no guarding, no peritoneal signs. Musculoskeletal: Tenderness over left humeral head. Other extremities atraumatic. Neurological: Alert, appropriate, and interactive. The patient has normal DTRs and non-focal cranial nerves, motor, sensory, and cerebellar exam. Skin: No rashes, good turgor, no nodules on palpation. Past medical history: PE, pneumothorax, metastatic lung disease with metastases to left shoulder, ribs, and hip. Past surgical history: biopsy Family history: Noncontributory Social history: Family at bedside. Oncologist: Dr. Cisneros. DIAGNOSTICS/PROCEDURES/CRITICAL CARE TIME: Study: X-ray of the left humerus Indication: Pain, metastatic disease Results: X-ray of the humerus was obtained. The results of the study are humeral metastasis with thinning of the humeral neck and possible pathologic fracture. The study was read by the radiologist, Dr. Steen. I viewed the images myself on the PACS system. DIFFERENTIAL DIAGNOSIS: The differential diagnosis for the patient's pain included but was not limited to pathologic humeral fracture, fracture, metastatic disease, shoulder sprain, neurologic pain. MEDICAL DECISION MAKING: This is a 71 Departure - Departure Disposition: Home, Routine, Self-Care Clinical Impression: Pathologic fracture of humerus Qualifiers: Encounter type: initial encounter Pathology associated with fracture: neoplastic disease Laterality: left Qualifier Code: (M84.522A) Pathological fracture in neoplastic disease, left humerus, initial encounter for fracture Condition: Fair Instructions: Arm Fracture in Adults (ED) Additional Instructions: 1. Keep arm in sling for comfort. 2. Use Dilaudid as prescribed when needed for pain. 3. Follow up with your oncologist as scheduled this week. 4. Follow up with orthopedist this week. You've been referred to Dr. Harkins. 5. Return for any worsening of condition. Referrals: NONE *PRIMARY CARE P,. [Unknown] - As per Instructions Rodrigue Cisneros MD [Medical Doctor] - As per Instructions Report Scribed for: Vicente Hodges Report Scribed by: Migdalia Zhao Date of Report: 09/18/16 Time of Report: 14:46
[2016-09-18 15:13] VITALS: BP 129/83; PULSE 80; RESP 18; TEMP 98.2
--- NOTE | 2016-09-18 16:30 | DX ---
Left Humerus, Two Views History: Pain. History of metastatic disease left humerus. Findings: Lucency is seen in the proximal metaphysis and surgical neck of the left humerus. Cortical thinning is seen anteriorly. A definite fracture is not visualized. Glenohumeral articulation is unre markable. Moderate degenerative change is seen in the acromioclavicular joint as an anterior curve to the acromion. Impression: Osteolytic lesion in the proximal metaphysis of the humerus with cortical thinning anteri j carlos.
== END 2016-09-18 15:12 | disposition home or self-care (01) ==
LOC: EDUNIT#
DX: M84.522A Pathological fracture in neoplastic disease, left humerus, initial encounter for fracture (principal); C34.90 Malignant neoplasm of unspecified part of unspecified bronchus or lung; C79.89 Secondary malignant neoplasm of other specified sites; C79.51 Secondary malignant neoplasm of bone

== ENCOUNTER → 2016-09-26 | Outpatient (CLI) | payer OTHER ==
[~2016-09-26] MED LIST: GADOBUTROL 10 ML VIAL IVP ONE
--- NOTE | 2016-09-26 18:11 | MR ---
MRI of the Brain(Without and With Contrast) Contrast: 6.5 mL intravenous Gadavist without complication. History: Lung cancer, evaluate for brain metastases Comparison: Cervical spine MRI October 02, 2015 Technique: Sagittal and axial T1-weighted images. Axial fast T2 2nd echo, GRE, diffusion and FLAIR im ages. Postgadolinium axial and coronal images. Findings: There is a new enhancing solid soft tissue lesion in the clivus measuring approximately 11 mm in diameter. No other calvarial soft tissue abnormalities are identified. No enhancing brain pare nchymal abnormalities are identified. 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 There is no evidence of mass lesion, hemorrhage, acute infarction, hydrocephalus, metastatic disease, or abnormal meningea l enhancement to suggest meningitis. There is no evidence of a chronic subdural hematoma. The paranas al and mastoid sinuses are normally aerated. Flow-void is present in both cavernous carotid arteries and in the basilar artery. The craniocervical junction is normal. There is degenerative cervical dis k disease at C3-C4 where there may be spinal stenosis present. Impression: 1. No brain parenchymal metastases. 2. 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 If clinically indicated evaluation with nucl ear medicine bone scan with SPECT imaging through the skull or PET/CT imaging to include the brain wo uld be complementary.
== END ==
LOC: FIMAGING 13:01
PROVIDERS: ATTEND Internal Medicine Hematology & Oncology
DX: C34.90 Malignant neoplasm of unspecified part of unspecified bronchus or lung (principal); R93.0 Abnormal findings on diagnostic imaging of skull and head, not elsewhere classified
CPT/HCPCS: 70553; A9585

== ENCOUNTER → 2016-10-03 | Outpatient (CLI) | payer OTHER ==
--- NOTE | 2016-10-03 16:46 | DX ---
"Hip Unilateral Min 2 Views Right History: Increasing pain during radiation therapy for metastatic lung cancer. Findings: Radiolucency involves the inferior aspect of the medial acetabular wall and the inferior pu bic ramus of the right hip. Findings could represent a manifestation of osseous metastatic disease. T here is also diffuse radiolucency of the weightbearing aspect of the right acetabulum superiorly. Rec ommend MRI examination of the right hip to exclude osseous metastases and potential impending patholo gic fracture. The left hip is normal in appearance. Joint spaces are maintained. Sacroiliac joints and symphysis pu bis appear intact. Impression: 1. Diffuse radiolucency involving the right acetabulum superiorly and the inferior aspect of the righ t acetabulum medially along with the inferior pubic ramus. Possible osteolytic metastatic involvement . Recommend MRI examination for further evaluation. A Follow-Up Required test result has been communicated via the [facility] | Critical Result syst em on 10/03/2016 16:45, Message ID [id number]."
== END ==
LOC: FIMAGING 13:04
PROVIDERS: ATTEND Radiology Radiation Oncology
DX: R93.7 Abnormal findings on diagnostic imaging of other parts of musculoskeletal system (principal); C34.90 Malignant neoplasm of unspecified part of unspecified bronchus or lung

== ENCOUNTER → 2016-10-24 | Outpatient (CLI) | payer OTHER | LOC: BMCIMAGING 14:30 | PROVIDERS: ATTEND Orthopaedic Surgery | DX: S42.302A Unspecified fracture of shaft of humerus, left arm, initial encounter for closed fracture (principal); C79.89 Secondary malignant neoplasm of other specified sites; C34.90 Malignant neoplasm of unspecified part of unspecified bronchus or lung ==

== ENCOUNTER → 2016-12-07 | Outpatient (CLI) | payer OTHER | LOC: BMCIMAGING 09:47 | PROVIDERS: ATTEND Orthopaedic Surgery | DX: M25.551 Pain in right hip (principal) ==

== ENCOUNTER → 2016-12-14 | Outpatient (CLI) | payer OTHER | LOC: FIMAGING 13:16 | PROVIDERS: ATTEND Nurse Practitioner | DX: M79.89 Other specified soft tissue disorders (principal); C34.12 Malignant neoplasm of upper lobe, left bronchus or lung ==

== ENCOUNTER → 2017-03-27 | Outpatient (CLI) | payer OTHER | LOC: BMCIMAGING 07:53 | PROVIDERS: ATTEND Orthopaedic Surgery | DX: M25.551 Pain in right hip (principal) ==

== ENCOUNTER → 2017-07-18 | Outpatient (CLI) | payer OTHER | LOC: FIMAGING 10:05 | PROVIDERS: ATTEND Internal Medicine Hematology & Oncology | DX: R93.0 Abnormal findings on diagnostic imaging of skull and head, not elsewhere classified (principal); C34.12 Malignant neoplasm of upper lobe, left bronchus or lung | CPT/HCPCS: 70553; A9585 ==

== ENCOUNTER → 2017-12-03 | Outpatient (CLI) | payer OTHER | LOC: FIMAGING 09:34 | PROVIDERS: ATTEND Nurse Practitioner | DX: M41.26 Other idiopathic scoliosis, lumbar region (principal); M53.87 Other specified dorsopathies, lumbosacral region; M51.37 Other intervertebral disc degeneration, lumbosacral region; M43.17 Spondylolisthesis, lumbosacral region; M24.851 Other specific joint derangements of right hip, not elsewhere classified; M51.87 Other intervertebral disc disorders, lumbosacral region; M48.07 Spinal stenosis, lumbosacral region ==

== ENCOUNTER 2018-02-09 09:49 | Observation (INO) | payer OTHER ==
--- NOTE | 2018-02-09 10:11 | CPEKG ---
Heart Rate: 74 RR Interval: 811 P-R Interval: 136 QRSD Interval: 92 QT Interval: 392 QTC Interval: 435 P [place]: 6 QRS [place]: 17 T Wave [place]: -2 EKG Severity - BORDERLINE ECG - EKG Impression: SINUS RHYTHM EKG Impression: BORDERLINE T WAVE ABNORMALITIES Electronically Signed By: Melissa Linares 09-Feb-2018 14:27:01
[2018-02-09 10:34] LABS: PLATELET COUNT 150 10^3/uL (150-400)
--- NOTE | 2018-02-09 10:39 | EDPHY ---
H & P Stated Complaint: on lovenox for PE/cp 4 days ago/abnl ekg/labs per pcp Time Seen by Provider: 02/09/18 10:19 HPI/ROS: CHIEF COMPLAINT: Chest pain, shortness of breath HISTORY OF PRESENT ILLNESS: 73-year-old male with metastatic lung cancer and prior pulmonary embolism presents with chest pain and shortness of breath. 3 weeks ago he was in [place] when he 1st noticed shortness of breath and chest constriction when he walked up an incline. Since then, he had shortness of breath and chest discomfort with exertion. He has limited his his activity since returning home. For nights ago, he awoke with substernal chest pressure. The chest pressure lasted approximately 20 min and then resolved. He denies chest pressure subsequently. He was seen by Dr. Damian in the office yesterday and troponin was elevated at 0.27. On Lovenox for pulmonary embolism. No prior history of cardiac disease. REVIEW OF SYSTEMS: complete 10 point ROS negative except at noted in the HPI Source: Patient - Personal History Current Tetanus Diphtheria and Acellular Pertussis (TDAP): Yes Tetanus Vaccine Date: 2007 - Medical/Surgical History Hx Asthma: No Hx Chronic Respiratory Disease: No Hx Diabetes: No Hx Cardiac Disease: No Hx Renal Disease: No Hx Cirrhosis: No Hx Alcoholism: No Hx HIV/AIDS: No Hx Splenectomy or Spleen Trauma: No Other PMH: pmh- uriticaria, enlarged prostate, hld lungcancer/ PE - Social History Smoking Status: Never smoked - Physical Exam Exam: General Appearance: Alert, pleasant Eyes: Pupils equal and round, no conjunctival pallor or injection ENT, Mouth: Mucous membranes moist Neck: Normal inspection Respiratory: Lungs are clear to auscultation Cardiovascular: Regular rate and rhythm Gastrointestinal: Abdomen is soft and nontender Neurological: A&O, nonfocal, normal gait Skin: Warm and dry, no rash Extremities: Nontender, no pedal edema Psychiatric: Mood and affect normal Constitutional: Initial Vital Signs Temperature (C) 36.5 C 02/09/18 09:52 Heart Rate 77 02/09/18 09:52 Respiratory Rate 18 02/09/18 09:52 Blood Pressure 124/87 H 02/09/18 09:52 O2 Sat (%) 94 02/09/18 09:52 O2 Delivery Mode Room Air Allergies/Adverse Reactions: Sulfa (Sulfonamide Antibiotics) Allergy (Unknown, Verified 02/09/18 09:50) Home Medications: Medication Instructions Recorded EPINEPHrine [Epipen 0.3 MG] 0.3 mg IM ONCE #2 syr 12/18/14 Dutasteride 0.5 mg PO HS 09/14/16 MIRTAZAPINE 15 mg PO HS PRN 09/14/16 Aspirin EC [Aspirin EC 81 mg (*)] 81 mg PO DAILY 02/09/18 Aspirin [Aspirin 325 mg (*)] 325 mg PO DAILY 02/09/18 Cholecalciferol Vit D3 [Vitamin D3 4,000 units PO DAILY 02/09/18 (*)] Enoxaparin [Lovenox 120 MG (*)] 120 mg SQ DAILY 02/09/18 Escitalopram Oxalate [Lexapro] 10 mg PO DAILY 02/09/18 Herbals/Supplements -Info Only 1 ea PO DAILY 02/09/18 Rosuvastatin Calcium [Crestor] 10 mg PO DAILY 02/09/18 Tarceva 150 mg PO DAILY 02/09/18 Medical Decision Making - Diagnostics EKG Interpretation: EKG interpreted by me reveals normal sinus rhythm, rate 74, T-wave flattening in the inferolateral leads. Interpretation: Borderline EKG Imaging Results: CTA chest: multiple osseous mets, SAHIL tumor, LAD calcification, no pulmonary embolism Imaging: Discussed imaging studies w/ scallop dredger Radiologist ED Course/Re-evaluation: This pt presents with exertional cp and SOB for 3 weeks, positive troponin yesterday. stat EKG reveals no acute ischemic changes. Suspect ACS 4 nights ago. ASA given. Eval reveals markedly elevated ddimer; pt on Lovenox for PE. CTA obtained and reveals no evidence of PE. Pt asymptomatic throughout. The hospitalist service was consulted for admission. Consulted Dr. Cesia Monaco, plan is for cardiac catheterization this afternoon. This pt utilized 35 minutes of critical care time exclusive of unbundled procedures by me. Time spent in initial evaluation, ordering/reviewing tests, consultations, discussions with pt. Organ at risk: cardiac Differential Diagnosis: Differential diagnosis includes though it is not limited to pneumonia, pneumothorax, pulmonary embolism, aortic dissection, pericarditis, acute coronary syndrome. - Data Points Laboratory Results: Laboratory Results 02/09/18 10:15 02/09/18 10:15 Medications Given: Dutasteride (Avodart) 0.5 mg PO HS JOSEPH Stop: 08/08/18 20:59 Last Admin: 02/09/18 22:11 Dose: Not Given Enoxaparin Sodium (Lovenox) 120 mg SC DAILY JOSEPH Stop: 08/09/18 08:59 Last Admin: 02/10/18 08:52 Dose: 120 mg Miscellaneous Medication (Tarceva) 150 mg PO DAILY JOSEPH Stop: 08/09/18 08:59 Last Admin: 02/10/18 08:49 Dose: 150 mg Discontinued Medications Aspirin (Aspirin) 324 mg PO EDNOW ONE Stop: 02/09/18 10:59 Last Admin: 02/09/18 11:30 Dose: 324 mg Aspirin Buffered (Aspirin Ec) 325 mg PO ONCALL ONE Stop: 02/09/18 13:52 Last Admin: 02/09/18 17:15 Dose: Not Given Diazepam (Valium) 5 mg PO ONCALL ONE Stop: 02/09/18 13:52 Last Admin: 02/09/18 15:47 Dose: Not Given Diphenhydramine HCl (Benadryl) 25 mg PO ONCALL ONE Stop: 02/09/18 13:52 Last Admin: 02/09/18 15:48 Dose: Not Given Famotidine (Pepcid) 20 mg PO ONCALL ONE Stop: 02/09/18 13:52 Last Admin: 02/09/18 15:48 Dose: Not Given Sodium Chloride (Ns) 1,000 mls @ 0 mls/hr IV ONCALL ONE PRN Reason: TKO Stop: 02/09/18 13:52 Last Admin: 02/09/18 15:49 Dose: Not Given Point of Care Test Results: Chemistry 02/09/18 10:17 POC Troponin I 0.11 ng/mL H ng/mL (0.00-0.08) Departure - Departure Disposition: [facility] Clinical Impression: Acute coronary syndrome Condition: Fair
[2018-02-09] MEDS ORDERED: ACETAMINOPHEN 325 MG TAB PO PRN (10:40)
[2018-02-09] MEDS ORDERED: ONDANSETRON DISINTEGRATING 4 MG TAB PO PRN (10:40)
[2018-02-09] MEDS ORDERED: ONDANSETRON 4 MG/2 ML VIAL IVP PRN (10:40)
[2018-02-09] MEDS ORDERED: D5W 1/2 NS W/ 20 KCl/L 1,000 ML IV SCH (10:45)
[2018-02-09] MEDS ORDERED: ASPIRIN 81 MG CHEWABLE TAB PO ONE (10:58)
[2018-02-09] MEDS ORDERED: ASPIRIN 81 MG CHEWABLE TAB ONE (10:59)
[2018-02-09] MEDS ORDERED: LIDOCAINE 1% 300 MG/30 ML SDV ONE (13:02)
[2018-02-09] MEDS ORDERED: fentaNYL 100 MCG/2 ML INJ ONE (13:02)
[2018-02-09] MEDS ORDERED: MIDAZOLAM 2 MG/2 ML VIAL ONE (13:03)
[2018-02-09] MEDS ORDERED: IOPAMIDOL (ISOVUE 370) 100 ML BTL IV ONE (13:03)
[2018-02-09] MEDS ORDERED: ASPIRIN EC 325 MG TAB PO ONE (13:51)
[2018-02-09] MEDS ORDERED: diphenhydrAMINE 25 MG CAP PO ONE (13:51)
[2018-02-09] MEDS ORDERED: NS 1,000 ML IV ONE (13:51)
[2018-02-09] MEDS ORDERED: DIAZEPAM 5 MG TAB PO ONE (13:51)
[2018-02-09] MEDS ORDERED: FAMOTIDINE 20 MG TAB PO ONE (13:51)
--- NOTE | 2018-02-09 14:23 | PDHPUP ---
History & Physical Update H&P update statement: This history and physical update is based on an assessment of the patient which was completed after admission or registration (within 24 hours), but prior to the surgery/procedure. H&P update: H&P reviewed & patient examined, no change in patient's condition since H&P completed
--- NOTE | 2018-02-09 14:23 | PDPROPOC ---
Sedation Plan of Care Sedation Plan of Care: vital signs stable, mental status noted, patient educated of risks, benefits, alternatives, patient can tolerate sedation ASA Classification: ASA 2 Planned drugs: fentanyl, midazolam Mallampati Score: Class 2 Mallampati Reference Image: Patient passed 3-3-2 rule?: Yes
--- NOTE | 2018-02-09 14:26 | GCON ---
[f rep st] CONSULTATION DATE OF CONSULTATION: 02/09/2018 CHIEF COMPLAINT: We have been asked by Dr. Linares to evaluate the patient with a chief complaint of ch est pain. HISTORY OF PRESENT ILLNESS: The patient is a 73-year-old gentleman with risk factors including age a nd hyperlipidemia, who presents with a chief complaint of chest pain. The patient was in his usual s farris of health until approximately 3 weeks prior to admission, when he began to notice symptoms of in creased shortness of breath, as well as some chest tightness with exertion. The patient states that if he walked on level ground he would not have symptoms; however, when he walked up an incline, he wo uld develop these symptoms and would have to stop. Approximately 4 nights ago, patient woke up in th e middle of the night with chest discomfort. The chest discomfort was described as a squeezing or pr essure sensation located over the left side of the chest. The discomfort was the worst he had to lizet e. The chest discomfort was associated with nausea and diaphoresis but not emesis. His symptoms [place] about 20 minutes, and he is able to fall back to sleep. Since this time, patient has continued t o note exertional chest tightness and shortness of breath. He ultimately presented to the emergency department for further evaluation. In the emergency department, he had an EKG performed, demonstrati ng no acute ST or T-wave changes. His initial troponin was elevated. We have been consulted to help in the further management of this patient. Patient reports a history of mild coronary artery diseas e by cardiac catheterization approximately 20-30 years previously. The patient has been managing his risk factors since this time and denies cardiovascular symptoms until his recent presentation. Osmin abbasi does have a history of metastatic adenocarcinoma of the lung. He is currently in remission. PAST MEDICAL HISTORY: 1. Pulmonary emboli. 2. Lung cancer. 3. Coronary artery disease. 4. Hyperlipidemia. 5. Benign prostatic hypertrophy. MEDICATIONS: Please see medicine reconciliation form. ALLERGIES: Sulfa. SOCIAL HISTORY: The patient does not smoke. He denies problems with alcohol. FAMILY HISTORY: Noncontributory. REVIEW OF SYSTEMS: Ten-point review of systems is negative, except as noted in the HPI. PHYSICAL EXAMINATION: GENERAL: The patient is resting comfortably in bed. He does not appear to be in acute distress at this time. VITAL SIGNS: Temperature is afebrile. Pulse is 70, blood pressure 166/104. Respiratory rate is 16. SaO2 is 93% on room air. HEENT: Normocephalic, atraumatic. Extr aocular muscles intact. LUNGS: Clear to auscultation bilaterally. CARDIOVASCULAR: Regular rate an d rhythm. S1, S2. Grade 2/6 systolic ejection murmur noted at the left sternal border. ABDOMEN: S oft, nontender. No hepatosplenomegaly noted. Aorta could not be adequately palpated. EXTREMITIES: No clubbing, cyanosis, or edema. SKIN: No evidence of rash. NEURO: Patient is awake, alert, and oriented x3. LABORATORY DATA: White blood cell count is 12.52. Hemoglobin is 15.8. Hematocrit is 46.9. Platele t count is 150. Sodium is 142, potassium 4.2, chloride 109, CO2 22, BUN 25, creatinine 1.3. Troponi n 0.278. Recent LDL cholesterol 88. D-dimer is 5.49. EKG demonstrates sinus rhythm, normal axis, no rmal intervals, no acute ST or T-wave changes. CT angiogram of chest demonstrates no evidence of pul monary emboli. The patient does have left anterior descending coronary artery calcification. There is no evidence of aortic aneurysm or dissection. Patient does have left upper lobe lung carcinoma. ASSESSMENT AND PLAN: The patient is a 73-year-old gentleman with risk factors including age and hype rlipidemia, who presents with an acute coronary syndrome and elevated troponin. Reviewed risks and b enefits of cardiac catheterization to further evaluate his condition. Will arrange to have this perf ormed urgently. /[id number]/MODL
[2018-02-09 14:44] LABS: INR 0.99 (0.83-1.16); PROTIME(PATIENT) 13.3 SEC (12.0-15.0)
--- NOTE | 2018-02-09 15:32 | CPIP ---
[f rep st] INVASIVE CARDIAC PROCEDURE DATE OF PROCEDURE: 02/09/2018 PROCEDURE: 1. Coronary angiography. 2. Left ventriculography. INDICATION: Acute coronary syndrome with elevated troponin. ACCESS: Patient was prepped and draped in sterile fashion. 1% lidocaine was used to anesthetize the right inguinal region. A 6-Mauritian introducer sheath was placed selectively in the right common femo ral artery via modified Seldinger technique. CORONARY ANGIOGRAPHY: A 6-Mauritian JL4 was advanced to the left main coronary artery and images obtain ed. The left main coronary artery bifurcated into an LAD, and circumflex coronary arteries. The lef t main coronary artery appeared normal. The left anterior descending coronary artery gave rise to 2 prominent diagonal branches. The left anterior descending coronary artery had mild diffuse disease t hroughout. In the midvessel the greatest stenosis was approximately 25%. The diagonal arteries are free of any significant disease. Circumflex coronary artery is a moderate-sized vessel. The circumf jun coronary artery gave rise to 1 prominent OM branch. The circumflex coronary artery and its OM br anch had mild luminal irregularities. There was no stenosis greater than 10% to 15%. A 6-Mauritian JR4 was advanced to the right coronary artery and images obtained. The right coronary artery was domina nt. The right coronary artery had mild luminal irregularities throughout. There was no stenosis gre ater than 15% to 20%. LEFT VENTRICULOGRAPHY: A 6-Mauritian pigtail catheter was advanced in the left ventricle and images obt ained. Left ventricle is normal size and normal systolic function. Estimated ejection fraction was 60%. COMPLICATIONS: None. CONCLUSIONS: 1. Mild coronary artery disease without flow limitation. 2. Normal left ventricular size and systolic function. 3. Plan is for medical management. /[id number]/MODL
[2018-02-09] MEDS ORDERED: ATROPINE SULFATE 1 MG/10 ML SYR IVP PRN (16:35)
[2018-02-09] MEDS ORDERED: NITROGLYCERIN 0.4 MG BTL SL PRN (16:35)
--- NOTE | 2018-02-09 16:40 | SOAPPROG ---
STEVE Progress Note Assessment/Plan: 1. chest pain - Pt presented with chest pain suggestive of unstable angina. Troponin was mildly elevated. EKG demonstrated no acute ST or T changes. Angiogram on 02/09/18 demonstrated no significant obstructive disease. ? vasospasm. Will repeat troponin to look for a typical fall associated with an event. Will also start PRN NTG. Consider calcium channel blockers for recurrent symptoms. Objective: Vital Signs Temp Pulse Resp BP Pulse Ox 36.8 C 70 15 180/96 H 97 02/09/18 13:23 02/09/18 13:23 02/09/18 13:23 02/09/18 13:23 02/09/18 13:23 02/08/18 02/09/18 02/10/18 05:59 05:59 05:59 Intake Total 620 Balance 620 PT 13.3 SEC (12.0-15.0) 02/09/18 10:15 INR 0.99 (0.83-1.16) 02/09/18 10:15 ICD10 Worksheet Patient Problems: Problems Problem Status Onset Carcinoma, lung Acute Pneumothorax after biopsy Acute Pulmonary embolism Acute
--- NOTE | 2018-02-09 17:04 | PDGENHP ---
History and Physical - Chief Complaint Acute chest pain - History of Present Illness PCP: Dr. Damian Onc: Dr. Cisneros HPI: 73 yo M p/w acute chest pain characterized as tightness located in his central chest, w/ onset of symptoms occurring at rest (awakening him from sleep ) 4-5 nights prior. Duration was 30 minutes, and symptoms were alleviated after he had some rolaids. During the interval, he has not experienced recurrence. Prior to his onset, for the past 2 weeks he has had some associated shortness of breath, exacerbated by ambulatory activity, as well as a chest "straining" sensation when he sits upright. Of note, he returned from a 2 week trip to [facility] 10 days ago, and he was riding in [employer] on [place] during the majority of his travels. He was adherent to his Rx and denies any trauma, fever, chills. He did begin to note increased rhinorrhea during his travels, but no overt cough or chest congestion. History Information - Allergies/Home Medication List Allergies/Adverse Reactions: Sulfa (Sulfonamide Antibiotics) Allergy (Unknown, Verified 02/09/18 09:50) Home Medications: Dutasteride 0.5 mg PO HS 09/14/16 [Last Taken Unknown] MIRTAZAPINE 15 mg PO HS PRN 09/14/16 [Last Taken Unknown] Aspirin EC [Aspirin EC 81 mg (*)] 81 mg PO DAILY 02/09/18 [Last Taken Unknown] Aspirin [Aspirin 325 mg (*)] 325 mg PO DAILY 02/09/18 [Last Taken 02/08/18] Cholecalciferol Vit D3 [Vitamin D3 (*)] 4,000 units PO DAILY 02/09/18 [Last Taken Unknown] Enoxaparin [Lovenox 120 MG (*)] 120 mg SQ DAILY 02/09/18 [Last Taken 02/08/18] Escitalopram Oxalate [Lexapro] 10 mg PO DAILY 02/09/18 [Last Taken Unknown] Herbals/Supplements -Info Only 1 ea PO DAILY 02/09/18 [Last Taken Unknown] Rosuvastatin Calcium [Crestor] 10 mg PO DAILY 02/09/18 [Last Taken Unknown] Tarceva 150 mg PO DAILY 02/09/18 [Last Taken 02/08/18] I have personally reviewed and updated: family history, medical history, social history, surgical history - Past Medical History Additional medical history: 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 Pulmonary embolism on systemic anticoagulation. Below the knee deep venous thrombosis. Left-sided pneumothorax. Obstructive sleep apnea. BPH. 1st degree AV block - Surgical History Reports: no pertinent surgical hx - Family History Additional family history: No recent sick family contacts - Social History Smoking Status: Never smoked Alcohol Use: Occasionally Drug Use: None Additional social history: Return from international travels in [facility] approximately 10 days ago, took malaria prophylaxis Review of Systems Review of Systems: ROS: 10pt was reviewed & negative except for what was stated in HPI & below EENMT: Reports: other (Rhinorrhea) Cardiac: Reports: chest pain Respiratory: Reports: shortness of breath Physical Exam Physical Exam: Temp Pulse Resp BP Pulse Ox 36.5 C 58 L 15 140/80 H 93 02/09/18 16:58 02/09/18 16:58 02/09/18 16:58 02/09/18 16:58 02/09/18 16:58 Constitutional: no apparent distress, appears nourished, not in pain Eyes: PERRL, anicteric sclera, EOMI Ears, Nose, Mouth, Throat: moist mucous membranes, hearing normal, ears appear normal, no oral mucosal ulcers Cardiovascular: regular rate and rhythym, no murmur, rub, or gallop, edema ( Trace bilateral lower extremity) Respiratory: no respiratory distress, no rales or rhonchi, clear to auscultation , No reduced air movement Gastrointestinal: normoactive bowel sounds, no palpable masses, tenderness ( Mild comma left lateral), No guarding, No distension Skin: No abrasion, No rash Musculoskeletal: other (No tenderness to palpation over the bilateral pectoralis muscles, no tenderness over the sternum, full range of motion bilateral shoulders without any pain) Neurologic: AAOx3, sensation intact bilaterally, No weakness, No facial droop Psychiatric: interacting appropriately, not anxious, not encephalopathic, thought process linear Lab Data & Imaging Review 02/09/18 10:15 02/09/18 10:15 WBC 12.52 10^3/uL (3.80-9.50) H 02/09/18 10:15 RBC 5.24 10^6/uL (4.40-6.38) 06/22/18 10:15 Hgb 15.8 g/dL (13.7-17.5) 02/09/18 10:15 Hct 46.9 % (40.0-51.0) 02/09/18 10:15 MCV 89.5 fL (81.5-99.8) 02/09/18 10:15 MCH 30.2 pg (27.9-34.1) 02/09/18 10:15 MCHC 33.7 g/dL (32.4-36.7) 02/09/18 10:15 RDW 13.2 % (11.5-15.2) 02/09/18 10:15 Plt Count 150 10^3/uL (150-400) 02/09/18 10:15 MPV 11.3 fL (8.7-11.7) 02/09/18 10:15 Neut % (Auto) 28.8 % (39.3-74.2) L 02/09/18 10:15 Lymph % (Auto) 63.7 % (15.0-45.0) H 02/09/18 10:15 [place] % (Auto) 4.6 % (4.5-13.0) 02/09/18 10:15 Eos % (Auto) 1.9 % (0.6-7.6) 02/09/18 10:15 Baso % (Auto) 0.4 % (0.3-1.7) 02/09/18 10:15 Nucleat RBC Rel Count 0.0 % (0.0-0.2) 02/09/18 10:15 Absolute Neuts (auto) 3.61 10^3/uL (1.70-6.50) 02/09/18 10:15 Absolute Lymphs (auto) 7.98 10^3/uL (1.00-3.00) H 02/09/18 10:15 Absolute Monos (auto) 0.58 10^3/uL (0.30-0.80) 02/09/18 10:15 Absolute Eos (auto) 0.24 10^3/uL (0.03-0.40) 02/09/18 10:15 Absolute Basos (auto) 0.05 10^3/uL (0.02-0.10) 02/09/18 10:15 Absolute Nucleated RBC 0.00 10^3/uL (0-0.01) 02/09/18 10:15 Immature Gran % 0.6 % (0.0-1.1) 02/09/18 10:15 Immature Gran # 0.08 10^3/uL (0.00-0.10) 02/09/18 10:15 RBC/WBC/PLT Morphology TNP 02/09/18 10:15 Platelet Estimate TNP 02/09/18 10:15 Smear Review By Cassia EARLY MD 02/09/18 10:15 PT 13.3 SEC (12.0-15.0) 02/09/18 10:15 INR 0.99 (0.83-1.16) 02/09/18 10:15 D-Dimer 5.49 ug/mLFEU (0.00-0.50) H 02/09/18 10:15 Sodium 142 mEq/L (135-145) 02/09/18 10:15 Potassium 4.2 mEq/L (3.3-5.0) 02/09/18 10:15 Chloride 109 mEq/L (97-110) 02/09/18 10:15 Carbon Dioxide 22 mEq/l (22-31) 02/09/18 10:15 Anion Gap 11 mEq/L (8-16) 02/09/18 10:15 BUN 25 mg/dL (7-23) H 02/09/18 10:15 Creatinine 1.3 mg/dL (0.7-1.3) 02/09/18 10:15 Estimated GFR 54 02/09/18 10:15 Glucose 84 mg/dL (70-100) 02/09/18 10:15 Calcium 9.3 mg/dL (8.5-10.4) 02/09/18 10:15 POC Troponin I 0.11 ng/mL (0.00-0.08) H 02/09/18 10:17 NT-Pro-B Natriuret Pep 228 pg/mL (0-125) H 02/09/18 10:15 Visualized and Interpreted imaging results: Yes Interpretation: Chest CT demonstrating no pulmonary embolism, persistent left upper lobe malignancy, right upper lobe airspace disease Visualized and Interpreted EKG results: Yes EKG Interpretation: Positive for: other (T-wave inversions in the inferior leads ) Assessment & Plan Assessment: 73-year-old male presents with acute chest pain and abnormal troponin level in the setting of stage IV lung cancer Plan: 1. Chest pain. Acute, new problem this provider, further workup indicated. With positive biomarkers and concerning history for angina, the patient went to the cardiac bobcat driver/labor after he was ruled out for pulmonary embolism -discussed with Dr. Edwin Ritchie, he reports to me that the patient had clean coronary arteries and 1 possible explanation for his positive biomarker is vaso spasm -he recommends repeating troponin level to ensure downtrending -monitor on telemetry overnight -monitor for any recurrence of chest pain -I suspect this chest pain may be secondary to right-sided upper lobe airspace disease of unclear etiology, he does not appear to have overt infectious symptoms and I will consult with Pulmonary 2. Stage IV lung cancer. Reviewed outside records including 09/17/2016 discharge summary by Ofe Steel, reports the patient had an index hospitalization for diagnosis of metastatic lung cancer to the bone, plans to treat with palliative radiation therapy, he was also noted to have an ejection fraction of 79% at that time -will consult with Oncology determine whether any additional evaluation should be considered for possible metastasis from left side to right side, consider shortening the interval until next PET scan -continue Tarceva 3. Abnormal troponin level. As mentioned above, trend 4. Leukocytosis. Acute on chronic, patient's baseline white blood cell count is between 9000-11,000, review of outside records from 02/08/2018 demonstrates most recent white blood cell count 13,700, currently 12,500, unclear etiology -monitor for infectious symptoms, repeat white blood cell count in a.m. 5. BPH. Chronic, continue home medication 6. Deep venous thrombosis and pulmonary embolism. History of, diagnosed in August of 2016, patient remains on 1.5mg/kg daily dosing of Lovenox -patient would like to discuss potential DOAC agent for this issue Diet. Regular Prophylaxis. High risk patient, currently anticoagulated Code. Full Disposition. Anticipated discharge is 02/10, pending further workup as outlined above.
[2018-02-09] MEDS ORDERED: MIRTAZAPINE 15 MG TAB PO PRN (21:00)
[2018-02-09] MEDS: DUTASTERIDE 0.5 MG CAP PO SCH (22:11)
[2018-02-10 04:52] LABS: PLATELET COUNT 140 10^3/uL (150-400)
[2018-02-10] MEDS ORDERED: ENOXAPARIN 120 MG/0.8 ML SYR SC SCH (09:00)
[2018-02-10] MEDS ORDERED: ESCITALOPRAM OXALATE 10 MG TAB PO SCH (09:00)
[2018-02-10] MEDS ORDERED: ROSUVASTATIN CALCIUM 10 MG TAB PO SCH (09:00)
[2018-02-10] MEDS ORDERED: CHOLECALCIFEROL VIT D3 1,000 UNITS TAB PO SCH (09:00)
[2018-02-10] MEDS ORDERED: Herbals/Supplements -Info Only PO SCH (09:00)
[2018-02-10] MEDS ORDERED: ASPIRIN EC 81 MG TAB PO SCH (09:00)
[2018-02-10] MEDS ORDERED: TARCEVA PO SCH (09:00)
[2018-02-10] MEDS ORDERED: NITROGLYCERIN 0.4 MG BTL SL PRN (11:19)
[2018-02-10] MEDS: amLODIPine BESYLATE 5 MG TAB PO SCH ×2 (11:33→11:44)
--- NOTE | 2018-02-10 11:33 | PDCARPN ---
Cardiology Progress Note Chief Complaint: Episode of chest pressure this morning, mild shortness of breath. Assessment/Plan: Assessment: 73-year-old male with significant past history that includes left lung cancer Stage IV, reports currently in remission, history of pulmonary embolisms, non flow limiting CAD and hyperlipidemia. Admitted on February 09 for complain of chest tightness with onset of symptoms occurring at rest (waking him from sleep ) for 4-5 days prior to admission. On mission noted to have elevated troponin level of 0.11 in peaking at 0.121. Cardiac catheterization was performed on showing mild non flow limiting CAD, with normal LV systolic size and function, EF was estimated 60%. No wall motion abnormalities. No complications. Today: Patient reporting mild exertional chest pressure this morning, reporting relief with oxygen therapy. Laboratory studies show that he continues to have elevated WBC at 12.91. Platelet count mildly low at 140. BUN 22, creatinine 1.1, potassium 4.4. Continuous cardiac monitoring showing that he maintain sinus rhythm with no malignant arrhythmias or pauses. 1. Chest pressure: Cardiac catheterization showing non flow limiting CAD. Patient with known history of PE, has been resumed on Lovenox. Discussing patient's chest pressure with Dr. Ritchie, concerning that potentially may be caused by vasal spasm with elevated troponin level. P.R.N. Sublingual nitroglycerin has been ordered. Will also start him on amlodipine. Have also spoke with Dr Schmitz, who is concerned potentially is lung cancer could be also cause for his symptoms. He has ask pulmonology to see today. Repeat troponin level this morning to trend. 2. CAD: Non flow limiting based off of cardiac catheterization done yesterday. Continue on current anti-platelet therapy of aspirin at 81 mg p.o. Q.day. He is on secondary risk prevention of Crestor. 3. Hyperlipidemia: Continue on home dose of Crestor. 4. Lung Cancer Stage IV: Hospitalist will consult Oncology. Consideration of PET scan. 5. PE: Diagnosed August of 2016. On Lovenox therapy. Consideration to transition over to NOAC mild chest pressure this morning. Potentially patient may be discharged today. Post cardiac catheterization discharge instructions went over the patient, including activity restriction, wound care, and follow-up. 02/10/18 11:30 Subjective: Patient reporting mild brief episode of chest pressure this morning, lasting for few minutes, then dissipating. Did feel once he placed oxygen therapy on, help resolve symptoms. Denies of any palpitations, reports no worsening in shortness of breath. Denies of any orthopnea, PND, edema, lightheadedness, near -syncope or syncopal events. Reviewed/Discussed With: hospitalist (Dr Schmitz), other (Dr Ritchie and Dr Baugh ) Objective: Vital Signs (8 Hrs) Temp Pulse Resp BP Pulse Ox 02/10/18 08:00 36.7 C 65 14 154/85 H 92 02/10/18 04:00 36.7 C 68 17 138/88 H 93 Intake/Output (24 Hrs) 02/09/18 02/10/18 02/11/18 05:59 05:59 05:59 Intake Total 1420 Balance 1420 Intake: Oral (ml) 1120 IV Intake (ml) 300 IV Infused (ml) 0 Other: Weight 79 kg Intake Quantity Yes Sufficient Number of Voids Toilet 3 Result Diagrams: 02/10/18 03:42 02/10/18 03:42 Cardiac Labs: Cardiac Lab Results (72 Hrs) 02/10/18 02/09/18 10:00 16:55 Troponin I 0.897 H 0.121 H - Physical Exam Constitutional: WDWN, no apparent distress Ears, Nose, Mouth, Throat: moist mucous membranes Cardiovascular: regular rate and rhythm, no murmurs, no rubs, pulses symmetric bilat, No jugular vein distention, No carotid bruit Peripheral Pulses: 2+: carotid (R), carotid (L), dorsalis-pedis (R), dorsalis- pedis (L) Respiratory: other (Diminished in bases, no rhonchi, rales, or wheezing noted. No accessory muscle use, no intercostal muscle retraction noted.) Gastrointestinal: normoactive bowel sounds, no masses Skin: warm, no edema, other (Right groin site, catheter insertion site, without redness, swelling, drainage, ecchymosis, or hematoma. No auscultated bruit over site.) Musculoskeletal: other (CMS checks to right lower extremity within normal limits.) Neurologic: AAOx3 Psychiatric: cooperative, interactive, following commands ICD10 Worksheet Patient Problems: Problems Problem Status Onset Pneumothorax after biopsy Acute Carcinoma, lung Acute Pulmonary embolism Acute Acute coronary syndrome Acute
[2018-02-10] MEDS: DUTASTERIDE 0.5 MG CAP PO SCH (11:34)
--- NOTE | 2018-02-10 15:44 | GCON ---
[f rep st] CONSULTATION ONCOLOGY INITIAL VISIT. PRIMARY ONCOLOGIST: Rodrigue Cisneros MD REASON FOR VISIT: Evaluation and management of thy-nohic-nluu lung cancer. HISTORY OF PRESENT ILLNESS: Mr. Alvarenga is a 73-year-old gentleman, who was diagnosed, August 2016, with, I believe at the time, metastatic lung cancer. He had palliative radiation to his right pelvis and left proximal humerus. He was found to have an EGFR sensitizing mutation and has been on Tarcev a since September 2016, with stabilization of his disease. He was admitted to the hospital last night because of an elevated troponin. He, about a week ago, returned from a 2-week trip to [facility] and, about 4-5 days ago, had some chest pressure on the left side with intermittent shortness of breath w ith walking up an incline. He saw Dr. Damian, his primary care provider, who obtained a troponin, whi ch was elevated. He was referred to the ER, which confirmed the elevated troponin. I believe he had a cardiac catheterization, which was unremarkable. He is still being followed. While this was bein g evaluated, he also had a CT angiogram of the chest, which showed that he had the known mass in the left upper lung and no PE. There were also multiple osseous metastases, which were known. There was a new right upper lobe anterior segment lymphangitic abnormality, whether spread of tumor or acute p neumonia was unclear. The patient denies any fever, cough. He does have the dyspnea with going up i nclines. Aside from the chest pressure described, he denied any other complaints. ALLERGIES: He is allergic to sulfa. HOME MEDICATIONS: Included aspirin, Crestor, Lexapro, cholecalciferol, enoxaparin, Tarceva, mirtazap ine, and dutasteride. CHRONIC ILLNESSES: 1. Lung cancer, as described above. 2. History of pulmonary embolism, on anticoagulation. 3. History of DVT. 4. Obstructive sleep apnea. 5. BPH. 6. First-degree AV block. SURGICAL HISTORY: Unremarkable. FAMILY HISTORY: Noncontributory. SOCIAL HISTORY: Nonsmoker and uses alcohol occasionally. REVIEW OF SYSTEMS: 10-point review of systems was performed. Pertinent positives as per HPI. Other fernandes negative. PHYSICAL EXAM: VITAL SIGNS: On arrival, his temp was 36.5. Pulse is 77. Blood pressure is 124/87, saturating 94% on room air. Currently, his vitals are basically the same. He is on 2 L of oxygen, saturating above 95%. GENERAL: He is a comfortable-appearing man in no distress. HEENT: Unremarka ble. CARDIAC: Regular. LUNGS: Clear without rhonchi or wheezing. ABDOMEN: Soft. MUSCULOSKELETA L: Nontender over spine. NEUROLOGICAL: Grossly intact. LABS: LFTs are normal. Chemistries: Unremarkable. Troponin was 0.121 yesterday evening, and this morning, it was actually elevated at 0.897. D-dimer when he arrived was elevated at 5.49. White count is elevated at 12,900. Hemoglobin and platelet count are unremarkable. He does have inc reased lymphocytes, which is a longstanding problem. CT angiogram: As per HPI, the left upper lung mass measured 27 x 17 cm. Last PET scan measured it at 23 x 13. Multiple osseous metastases as desc ribed above and then, of course, the right upper lobe anterior segment infiltrate. Chest x-ray showe d mild prominence of interstitial markings diffuse bilaterally. This was not reported on CT. IMPRESSION: 1. Metastatic non-small cell lung cancer with an EGFR-sensitizing mutation with metastases to the raghu chelsie, liver, mediastinum, retroperitoneum. 2. Chest pressure with elevated troponin, being followed by Cardiology. 3. New right lung infiltrate. I spoke with Dr. Saenz with Pulmonology, and he did not think it was characteristics of the lymphangi tic spread of cancer. The patient has also been really not exhibiting any signs of infection. He is scheduled for a PET scan on March 08 and a followup with Dr. Cisneros on March 16. Dr. Saenz recommended to get a followup chest x-ray in about a week and, if it is progressing, can either move up the pad or try an antibiotic at that time. The one known cancer may be slightly bigger, but there are also s lightly different modalities, so I think the followup PET scan will be more helpful on that. I doubt this is related to the Tarceva, which can cause pneumonitis, but that would be more diffuse, so I re commend he continue on the drug for now. /[id number]/MODL
[2018-02-10 16:17] VITALS: BP 131/79
--- NOTE | 2018-02-10 16:49 | GHP ---
[f rep st] HISTORY AND PHYSICAL DATE OF ADMISSION: 02/09/2018 REFERRING PHYSICIAN: Edwin Schmitz MD REASON FOR REFERRAL: Evaluation and management of chest pain with abnormal CT scan. HISTORY: The patient is a 73-year-old male with a history of known metastatic lung cancer on Tarceva for the past year. He was in his usual state of good health when about 5 nights ago he was awoken from sleep with some substernal chest tightness. He said this pain lasted about 30 minutes and then resolved spontaneously. It has not returned. He presented to the hospital with these symptoms and was admitted. He denies any chest pain since then. He has had some some very minimal nonproductive cough. He denies shortness of breath, although he has been active in the last few days. PAST MEDICAL HISTORY: 1. Stage IV lung cancer with metastasis to the bone. He has received radiation as well as Tarceva. 2. History of pulmonary embolism, on systemic anticoagulation. 3. Obstructive sleep apnea. MEDICATIONS: At the time of admission include dutasteride, mirtazapine, aspirin , enoxaparin, escitalopram, Crestor, Tarceva. ALLERGIES: Sulfa. SOCIAL HISTORY: The patient has never smoked. He was on a safari approximately 10 days ago in [facility]. He reports driving through clouds of dust. He had no illness or fever at that time. He took malaria prophylaxis. FAMILY HISTORY: Unremarkable. REVIEW OF SYSTEMS: A 10-point review of systems adds nothing to the history of present illness. PHYSICAL EXAMINATION: GENERAL: The patient is awake, alert, in no acute distress. VITAL SIGNS: Blood pressure is 128/71, with a heart rate of 50. He is afebrile. Oxygen saturations are 93% on room air. HEENT: Normocephalic and atraumatic. No icterus. NECK: No JVD. Trachea is midline. CHEST: Clear to auscultation. CARDIAC: Regular rate and rhythm without murmur. ABDOMEN: Soft, nontender. Bowel sounds are present. EXTREMITIES: No clubbing , cyanosis, or edema. NEURO: The patient is awake and alert. There are no gross motor or sensory deficits. LABORATORY: Chemistry group is normal. White blood count is 12.9, stable from yesterday. He has 3% bands. D-dimer is 5.5. Troponins have been repeated and have been climbing during this hospitalization, starting at 0.11, and now 1.29. A left heart catheterization was unremarkable with no flow-limiting coronary artery disease. A CT scan of the chest is negative for pulmonary emboli. There is a left upper lobe mass consistent with cancer. In the right upper lobe and mid lung, he has a patchy alveolar/nodular area of infiltration that does not have prominent interstitial changes. Images reviewed by me. ASSESSMENT: Right upper lobe infiltrate. It is unclear if this is symptomatically related to the patient's chest pain, although it seems that may have been due to coronary vasospasm. In the absence of chest pain, the patient has minimal/no symptoms, with no fever and no discernible shortness of breath. He has a very minimal nonproductive cough, but has not really developed acutely. The appearance on CT scan looks most like an inflammatory process such as bacterial or viral pneumonitis. Tarceva pneumonitis is possible, but less likely given the focality. A tropical infection is also possible, but less likely in the absence of fever or other constitutional symptoms. However, he does have a mildly elevated white blood count without eosinophilia. Given the absence of symptoms and the fairly mild area of infiltrate, I would be inclined to observe off treatment. RECOMMENDATIONS: 1. Okay to discharge from my standpoint. It appears that he may stay in the hospital while his troponins are observed. 2. Repeat chest x-ray in a week. 3. If the chest x-ray shows worsening or the patient develops symptoms, I would favor an empiric course of antibiotics, perhaps a macrolide or Levaquin. If he does not respond to that or if his symptoms are more prominent, consider infectious disease consultation to evaluate for possible tropical infections, and bronchoscopy to get a more definitive diagnosis. 4. The patient is going to be following up with Dr. Cisneros for the chest x-ray. /[id number]/MODL MTDD
--- NOTE | 2018-02-10 17:35 | ASMTDCNOTE ---
Case Management Discharge Discharge Order Complete? Answers: Yes Patient to Obtain Answers: Independently Medications Transportation Arranged Answers: Family/Friends Discharge Comments Notes: Pt discussed in rounds this AM, no CM needs at dc. Pt here 2 minutes past 24 hr silva, attmempted to get DONG signed but pt had already dc'd. Date Signed: 02/10/2018 05:34 PM Electronically Signed By:Claribel Duran RN
--- NOTE | 2018-02-10 19:33 | PDDCSUM ---
Discharge Summary Discharge Summary: DISCHARGE SUMMARY FOLLOW-UP ITEMS: 1. Repeat chest imaging in 1 week, to be ordered by [facility] DATE OF ADMISSION: 02/09/2018 DATE OF DISCHARGE: 02/10/2018 DISCHARGE DIAGNOSES: 1. Acute demand ischemia 2. Suspected acute coronary vasospasms 3. Right upper lobe airspace disease, suspected pneumonitis 4. Stage IV lung cancer 5. Acute atelectasis CONSULTATIONS: Pulmonary, oncology PROCEDURES / IMAGING: Cardiac catheterization demonstrating no obstructive lesions, normal ejection fraction CT angiograms demonstrating no pulmonary embolism, persistent left upper lobe malignancy, a right upper lobe streaky airspace disease CHIEF COMPLAINT: Acute chest pain SUBJECTIVE: No ongoing chest pain at time of discharge PHYSICAL EXAM ON DISCHARGE: Systolic blood pressure 130-150, heart 60-70, 95% on room air, alert awake oriented x3, some faint inspiratory crackles in the bilateral bases, heart rhythm is regular, no murmurs rubs or gallops appreciated, no lower extremity edema LABS ON DISCHARGE: White blood cell count 30227, hemoglobin 15.3, creatinine 1.1 HOSPITAL COURSE BY PROBLEM: The patient presented with acute chest pain most likely secondary to acute coronary vasospasm resulting in acute demand ischemia. The patient's troponin level began as 0.1, and he underwent cardiac catheterization which demonstrated no obstructive coronary disease. It was suspected that the patient experienced acute vasospasm approximately 4 days prior to presentation and his troponin level was down trending on presentation. However, the patient experienced acute recurrence of his chest pain, and this was most likely secondary to recurrent vasospasms, as the patient's troponin level acutely chris to 1.3. He was initiated on amlodipine 5 mg daily and given a prescription for sublingual nitroglycerin. He did not experience any additional chest pain, and the cardiology service deemed him safe for discharge with close outpatient follow- up. It is unclear why the patient has developed coronary vasospasm. The patient was also noted to have new right upper lobe streaky airspace disease on chest CT imaging. I reviewed this with Dr. Andrés Saenz, and it was his impression that this could be indicative of either infection or pneumonitis. He did not recommend initiation of antibiotics but did recommend close outpatient chest imaging followup, to be ordered through [facility]. If the patient's chest imaging worsens at that time, he should be initiated on antibiotics, outpatient bronchoscopy should be scheduled, and the patient may require infectious disease consultation, given his recent travels to [facility] and potential international organism exposure. DISCHARGE MEDICATIONS: Please see official discharge medication reconciliation sheet in chart , amlodipine 5 mg daily, as needed sublingual nitroglycerin. DISCHARGE INSTRUCTIONS: The patient was counseled extensively to return to the emergency department if he experiences any recurrent chest pain, and to take a sublingual nitroglycerin immediately.
== END 2018-02-10 16:53 | disposition home or self-care (01) ==
LOC: INTOOBSV 10:40 → F2W 12:22
PROVIDERS: ADMIT Internal Medicine; ATTEND Internal Medicine
DX: I24.8 Other forms of acute ischemic heart disease (principal); R91.8 Other nonspecific abnormal finding of lung field; R79.9 Abnormal finding of blood chemistry, unspecified; C34.12 Malignant neoplasm of upper lobe, left bronchus or lung; C79.51 Secondary malignant neoplasm of bone; D72.829 Elevated white blood cell count, unspecified; I25.10 Atherosclerotic heart disease of native coronary artery without angina pectoris; J98.11 Atelectasis; I44.0 Atrioventricular block, first degree; N40.0 Benign prostatic hyperplasia without lower urinary tract symptoms; G47.33 Obstructive sleep apnea (adult) (pediatric); E78.5 Hyperlipidemia, unspecified; Z79.82 Long term (current) use of aspirin; Z79.01 Long term (current) use of anticoagulants; Z86.711 Personal history of pulmonary embolism; Z86.718 Personal history of other venous thrombosis and embolism; Z92.3 Personal history of irradiation; Z88.2 Allergy status to sulfonamides
CPT/HCPCS: 71046; 71275; 93005; 93458; 99291; G0378; 84484-PO; C1760; J1644; J1650; J2250; J3010; Q9967

== ENCOUNTER 2018-02-15 13:34 | Inpatient (IN) | payer OTHER ==
--- NOTE | 2018-02-15 14:02 | CPEKG ---
Heart Rate: 77 RR Interval: 779 P-R Interval: 160 QRSD Interval: 90 QT Interval: 376 QTC Interval: 426 P [place]: 61 QRS [place]: 37 T Wave [place]: -8 EKG Severity - ABNORMAL ECG - EKG Impression: SINUS RHYTHM EKG Impression: CONSIDER POSTERIOR INFARCT EKG Impression: BORDERLINE T ABNORMALITIES, INFERIOR LEADS Electronically Signed By: Tiburcio Carvalho 15-Feb-2018 14:33:10
--- NOTE | 2018-02-15 14:02 | EDPHY ---
H & P Time Seen by Provider: 02/15/18 14:00 HPI/ROS: CHIEF COMPLAINT: Shortness of breath on exertion HISTORY OF PRESENT ILLNESS: Patient was discharged on 02/10/18 with diagnosis of pneumonitis and lung cancer and coronary vasospasm. He had a negative CTA negative cardiac catheterization. He presents today with worsening shortness of breath for the last 4 days. He says his left side of his chest is uncomfortable and associated with feeling very tired and very short of breath on exertion. Note he was diagnosed with pulmonary embolism in [place] in August 2016 and has been on Lovenox ever since. This last week he switched to Xarelto and did not take his Lovenox on Monday, did 1 Lovenox shot on Monday and took his 1st Xarelto last night. Denies cough or syncope or leg swelling or fever or chills. REVIEW OF SYSTEMS: Eye: no change in vision ENT: no sore throat Cardiac: HPI Pulmonary: HPI Abdomen: He has had severe abdominal swelling today which is persistent and a little bit better than before, no vomiting or diarrhea Musculoskeletal: no back pain Skin: no rash Neuro: no headache Constitutional: no fever : no urinary symptoms A comprehensive 10 point review of systems is otherwise negative aside from elements mentioned in the history of present illness. PAST MEDICAL HISTORY: Includes enlarged prostate, lung cancer, pulmonary embolism Social history: Just got back from [place] 2 weeks ago was on [place] General Appearance: Alert and conversant, cooperative. Eyes: No scleral icterus. ENT, Mouth: Normal mucous membranes. Respiratory: Normal respiratory effort, breath sounds equal, lungs are clear to auscultation. Cardiovascular: Regular rate and rhythm. Gastrointestinal: Abdomen is soft and non tender. Mildly distended but no peritoneal signs. Neurological: Alert, face symmetric, normal motor and sensory in extremities. Skin: Warm and dry, no rashes. Musculoskeletal: No peripheral edema. Psychiatric: Not agitated. Emergency Department course/MDM: Troponin is 0.4 but decreasing from previous. Plan for i-STAT and CT chest abdomen and pelvis. 1605: CT shows wedge-shaped splenic infarct, no pulmonary embolism, no other acute findings per Dr. Hyatt. Discussed with hospitalist who discussed with Hematology, will admit for further workup. Smoking Status: Never smoked Constitutional: Initial Vital Signs Temperature (C) 36.7 C 02/15/18 13:39 Heart Rate 80 02/15/18 13:39 Respiratory Rate 18 02/15/18 13:39 Blood Pressure 146/82 H 02/15/18 13:39 O2 Sat (%) 94 02/15/18 13:39 O2 Delivery Mode Room Air O2 (L/minute) 2 Allergies/Adverse Reactions: Sulfa (Sulfonamide Antibiotics) Allergy (Unknown, Verified 02/15/18 13:38) Home Medications: Medication Instructions Recorded Dutasteride 0.5 mg PO DAILY 09/14/16 MIRTAZAPINE 15 mg PO HS 09/14/16 Aspirin EC [Aspirin EC 81 mg (*)] 81 mg PO DAILY 02/09/18 Cholecalciferol Vit D3 [Vitamin D3 4,000 units PO DAILY 02/09/18 (*)] Escitalopram Oxalate [Lexapro 10 10 mg PO DAILY 02/09/18 MG] Herbals/Supplements -Info Only 1 ea PO DAILY 02/09/18 Tarceva 150 mg PO DAILY 02/09/18 Nitroglycerin [Nitrostat 0.4 mg 0.4 mg SL Q5M PRN #20 btl 02/10/18 (*)] amLODIPine BESYLATE [Norvasc 5 mg 5 mg PO DAILY #30 tab 02/10/18 (*)] EPINEPHrine [Epipen 0.3 MG] 0.3 mg IM ONCE PRN 02/15/18 Rivaroxaban [Xarelto] 20 mg PO DAILY@19 02/15/18 Rosuvastatin Calcium [Crestor 20mg 20 mg PO DAILY 02/15/18 (*)] Medical Decision Making - Diagnostics EKG Interpretation: 12-lead EKG interpreted by me; official reading is in trace master. My interpretation is is sinus rhythm, borderline inferior T-wave flattening, rate 77 Imaging Results: Imaging Impressions Abdomen CT 02/15/18 14:18 Impression: 1. Diffuse osseous metastasis. 2. Cholelithiasis without biliary ductal dilation. 3. Splenic infarct. 4. Atherosclerotic aorta without aneurysm. 5. Sigmoid diverticulosis without diverticulitis or bowel obstruction. 6. No ascites. Findings and recommendations discussed with Emergency Department physician, Dr. Tiburcio Carvalho at 1600 hours on February 15, 2018. Final report concurs with initial preliminary interpretation. Chest/Thorax CTA 02/15/18 14:18 Impression: 1. No definite pulmonary thromboemboli. 2. Left upper lobe spiculated 2.8- x 1.3-cm lung carcinoma. 3. Right upper lobe reticular nodular pneumonitis versus lymphangitic spread of tumor. 4. Multiple osseous metastases. 5. No pleural effusion or pneumothorax. Findings and recommendations discussed with Emergency Department physician, Tiburcio Carvalho M.D., at 1600 hours, on February 15, 2018. Final report concurs with initial preliminary interpretation. Imaging: Discussed imaging studies w/ body recall instructor Radiologist Differential Diagnosis: Differential diagnosis considered for shortness of breath including but not limited to pulmonary infectious process, COPD, asthma, pulmonary embolus and congestive heart failure. Consult/Admit Bed Type: [place] [id number] - Data Points Laboratory Results: Laboratory Results 02/15/18 14:14 02/15/18 14:14 02/15/18 02/15/18 02/15/18 14:17 14:14 14:14 WBC RBC Hgb POC Hgb 16.0 gm/dL gm/dL (13.7-17.5) Hct POC Hct 47 % % (40-51) MCV MCH MCHC RDW Plt Count MPV Neut % (Auto) Lymph % (Auto) [place] % (Auto) Eos % (Auto) Baso % (Auto) Nucleat RBC Rel Count Absolute Neuts (auto) Absolute Lymphs (auto) Absolute Monos (auto) Absolute Eos (auto) Absolute Basos (auto) Absolute Nucleated RBC Immature Gran % Immature Gran # Platelet Estimate POC Sodium 143 mEq/L mEq/L (135-145) Sodium 142 mEq/L mEq/L (135-145) POC Potassium 3.7 mEq/L mEq/L (3.3-5.0) Potassium 3.9 mEq/L mEq/L (3.3-5.0) POC Chloride 107 mEq/L mEq/L (97-110) Chloride 108 mEq/L mEq/L (97-110) Carbon Dioxide 23 mEq/l mEq/l (22-31) Anion Gap 11 mEq/L mEq/L (8-16) POC BUN 20 mg/dL mg/dL (7-23) BUN 19 mg/dL mg/dL (7-23) Creatinine 1.2 mg/dL mg/dL (0.7-1.3) POC Creatinine 1.3 mg/dL mg/dL (0.7-1.3) Estimated GFR 59 Glucose 88 mg/dL mg/dL (70-100) POC Glucose 92 mg/dL mg/dL (70-100) Calcium 9.2 mg/dL mg/dL (8.5-10.4) Total Bilirubin 1.3 mg/dL mg/dL (0.1-1.4) Conjugated Bilirubin 0.4 mg/dL mg/dL (0.0-0.5) Unconjugated Bilirubin 0.9 mg/dL mg/dL (0.0-1.1) AST 39 IU/L IU/L (17-59) ALT 40 IU/L IU/L (21-72) Alkaline Phosphatase 118 IU/L IU/L (38-126) POC Troponin I NT-Pro-B Natriuret Pep 646 pg/mL H pg/mL (0-125) Total Protein 6.6 g/dL g/dL (6.3-8.2) Albumin 4.0 g/dL g/dL (3.5-5.0) 02/15/18 02/15/18 14:14 14:03 WBC 11.96 10^3/uL H 10^3/uL (3.80-9.50) RBC 5.21 10^6/uL 10^6/uL (4.40-6.38) Hgb 15.7 g/dL g/dL (13.7-17.5) POC Hgb Hct 46.6 % % (40.0-51.0) POC Hct MCV 89.4 fL fL (81.5-99.8) MCH 30.1 pg pg (27.9-34.1) MCHC 33.7 g/dL g/dL (32.4-36.7) RDW 13.0 % % (11.5-15.2) Plt Count 124 10^3/uL L 10^3/uL (150-400) MPV 12.1 fL H fL (8.7-11.7) Neut % (Auto) 47.7 % % (39.3-74.2) Lymph % (Auto) 43.6 % % (15.0-45.0) [place] % (Auto) 5.9 % % (4.5-13.0) Eos % (Auto) 1.9 % % (0.6-7.6) Baso % (Auto) 0.4 % % (0.3-1.7) Nucleat RBC Rel Count 0.0 % % (0.0-0.2) Absolute Neuts (auto) 5.70 10^3/uL 10^3/uL (1.70-6.50) Absolute Lymphs (auto) 5.21 10^3/uL H 10^3/uL (1.00-3.00) Absolute Monos (auto) 0.71 10^3/uL 10^3/uL (0.30-0.80) Absolute Eos (auto) 0.23 10^3/uL 10^3/uL (0.03-0.40) Absolute Basos (auto) 0.05 10^3/uL 10^3/uL (0.02-0.10) Absolute Nucleated RBC 0.00 10^3/uL 10^3/uL (0-0.01) Immature Gran % 0.5 % % (0.0-1.1) Immature Gran # 0.06 10^3/uL 10^3/uL (0.00-0.10) Platelet Estimate DECREASED L (ADEQ) POC Sodium Sodium POC Potassium Potassium POC Chloride Chloride Carbon Dioxide Anion Gap POC BUN BUN Creatinine POC Creatinine Estimated GFR Glucose POC Glucose Calcium Total Bilirubin Conjugated Bilirubin Unconjugated Bilirubin AST ALT Alkaline Phosphatase POC Troponin I 0.41 ng/mL H ng/mL (0.00-0.08) NT-Pro-B Natriuret Pep Total Protein Albumin Medications Given: Rivaroxaban (Xarelto) 20 mg PO DAILY@19 JOSEPH Stop: 08/14/18 18:59 Last Admin: 02/15/18 19:17 Dose: 20 mg Point of Care Test Results: Chemistry 02/15/18 02/15/18 14:17 14:03 POC Sodium 143 mEq/L mEq/L (135-145) POC Potassium 3.7 mEq/L mEq/L (3.3-5.0) POC Chloride 107 mEq/L mEq/L (97-110) POC BUN 20 mg/dL mg/dL (7-23) POC Creatinine 1.3 mg/dL mg/dL (0.7-1.3) POC Glucose 92 mg/dL mg/dL (70-100) POC Troponin I 0.41 ng/mL H ng/mL (0.00-0.08) ISTAT H&H 02/15/18 14:17 POC Hgb 16.0 gm/dL gm/dL (13.7-17.5) POC Hct 47 % % (40-51) Departure - Departure Disposition: [facility] Inpatient Acute Clinical Impression: Infarction of spleen Condition: Good
[2018-02-15] MEDS ORDERED: IOPAMIDOL (ISOVUE 370) 100 ML BTL IV ONE (14:42)
[2018-02-15 14:57] LABS: PLATELET COUNT 124 10^3/uL (150-400)
[2018-02-15] MEDS ORDERED: ONDANSETRON DISINTEGRATING 4 MG TAB PO PRN (16:41)
[2018-02-15] MEDS ORDERED: ONDANSETRON 4 MG/2 ML VIAL IVP PRN (16:41)
[2018-02-15] MEDS ORDERED: ACETAMINOPHEN 325 MG TAB PO PRN (16:41)
[2018-02-15] MEDS ORDERED: RIVAROXABAN 20 MG TAB PO SCH (19:00)
--- NOTE | 2018-02-15 19:01 | GHP ---
[f rep st] HISTORY AND PHYSICAL DATE OF ADMISSION: 02/15/2018 CHIEF COMPLAINT: Left-sided chest, abdominal pain. PRIMARY ONCOLOGIST: Dr. Stanford. HISTORY OF PRESENT ILLNESS: A 73-year-old male with metastatic small lung cell cancer, status post palliative radiation to right pelvis and looks left humerus. He has been on Tarceva since September 2016. He was just admitted to [facility], 02/09, with chest pain and an NSTEMI. He underwent cardiac catheterization that did not show any obstructive lesions and normal EF. He went home on Monday and just has not felt very well. He has been more fatigued. He has had pressure in his left chest that is dull in nature. It was improved last night with nitroglycerin. This pressure does not radiate to his arm, neck or jaw. There is no associated shortness of breath, diaphoresis, or nausea. He was recently in [facility] 2 weeks ago. He did have some diarrhea when he returned, but is now having normal stools. He was diagnosed with PE. Does notes increased abdominal distention today after taking a shower. REVIEW OF SYSTEMS: I completed a 10-point review of systems, negative except as noted in HPI. PAST MEDICAL HISTORY: 1. Metastatic non-small cell lung cancer on Tarceva. 2. History of PE, August 2016, on Xarelto. 3. RADHA on CPAP. 4. BPH. 5. First-degree heart block. PAST SURGICAL HISTORY: Inguinal hernia. SOCIAL HISTORY: Lives in [place] alone. Has family in [place]. No tobacco or illicits. Drinks occasional wine. FAMILY HISTORY: Father with PE, CKD, and lung cancer. Mother with stroke. ALLERGIES: Sulfa. HOME MEDICATIONS: 1. Dutasteride 0.5 mg daily. 2. Vitamin D3 4000 units daily. 3. Aspirin 81 mg daily. 4. Xarelto 20 mg daily. 5. Nitroglycerin. 6. Mirtazapine 15 at bedtime. 7. Lexapro 10 daily. 8. Has an EpiPen. 9. Norvasc 5 mg daily. 10. Tarceva 150 mg daily. 11. Rosuvastatin 20 mg daily. 12. He had been on Lovenox up until this last week in which he switched to Xarelto. He did not take his Lovenox on Monday. Did 1 shot of Lovenox yesterday and took his first Xarelto last night. PHYSICAL EXAMINATION: VITAL SIGNS: Temperature 36.7, blood pressure 146/82, heart rate in the 80s, respirations 18, 89 on room air, 94 on 2 L. GENERAL: He is well-appearing, tired, no acute distress. HEENT: PERRLA. Moist mucous membranes. CV: Regular rate and rhythm. LUNGS: Diminished breath sounds at bases. ABDOMEN: Distended, but soft. Left upper quadrant tenderness but no rebound, guarding. Positive bowel sounds. : No [place]. MUSCULOSKELETAL: 5/ 5 upper and lower extremity strength. NEURO: 2-12 intact. PSYCH: Alert and oriented x3. LABS: Sodium 143, potassium 3.7, chloride 107, BUN 20, creatinine is 1.2, which is at baseline, glucose 88. Troponin 0.41 (down from 1.2 on 02/10/2018). BNP is 646. WBC is 11, hemoglobin 15, hematocrit 46, platelets 124. RADIOLOGY: CTA: No PE. Left upper lobe spiculated 2.8 x 1.3 lung carcinoma. Right upper lobe reticulonodular pneumonitis versus lymphangitic spread of tumor. Multiple osseous metastases. No pleural effusion. Abdominal CT: Diffuse osseous metastatic disease. Six gallstones without gallbladder wall thickening or biliary ductal dilatation. Spleen: Splenic infarct involving the anterior aspect measuring 4 x 3.4, new since prior study. No ascites. EKG, personally reviewed by me: Borderline T-wave abnormalities in inferior leads. This was seen on prior EKG. There is no indication for further cardiac evaluation at this time. ASSESSMENT/PLAN: 1. Chest pain: Suspect this is due to the splenic infarct. Tender in the left upper quadrant on exam. He had a cardiac catheterization on the that showed just mild coronary artery disease. No obstructive lesions. His troponin is down to 0.41 from 1.2. 2. Splenic infarct: Differential includes malignancy, which is uncommon, atrial fibrillation, endocarditis or PFO. Monitor on telemetry for arrhythmia. Check an echocardiogram for PFO. He is on immunosuppression with Tarceva and was recently in [place], so we will check blood cultures, though he has been afebrile here. I did speak with Dr. Granados with Surgery, who said observation is appropriate and continuing anticoagulation is reasonable, given there is no extravasation. 3. Abdominal distention. Add LFTs. There is no ascites on CT scan. He is having normal bowel movements. 4. Pulmonary embolism, August 2016: Resume Xarelto. We will check an H and H tonight while on Xarelto. 5. Metastatic lung cancer: He is on Tarceva. 6. Obstructive sleep apnea: Continue CPAP. 7. Diet: Regular. 8. Deep venous thrombosis prophylaxis on Xarelto. 9. Disposition: Patient warrants observation and admission for echo, blood cultures. If clinically stable, can likely discharge in the morning. /[id number]/MODL MTDD
[2018-02-15] MEDS: MIRTAZAPINE 15 MG TAB PO SCH (22:53)
[2018-02-16] MEDS ORDERED: oxyCODONE IR 5 MG TAB PO PRN (07:09)
[2018-02-16] MEDS: NITROGLYCERIN 0.4 MG BTL SL PRN (07:11)
--- NOTE | 2018-02-16 07:38 | CPEKG ---
Heart Rate: 79 RR Interval: 759 P-R Interval: 152 QRSD Interval: 88 QT Interval: 388 QTC Interval: 445 P [place]: 8 QRS [place]: 23 T Wave [place]: -43 EKG Severity - ABNORMAL ECG - EKG Impression: SINUS RHYTHM EKG Impression: NONSPECIFIC T ABNORMALITIES, DIFFUSE LEADS EKG Impression: CONSIDER ISCHEMIA Electronically Signed By: Edwin Ritchie 16-Feb-2018 08:43:52
[2018-02-16] MEDS ORDERED: Herbals/Supplements -Info Only PO SCH (09:00)
[2018-02-16] MEDS: CHOLECALCIFEROL VIT D3 2,000 UNITS TAB/CAP PO SCH (10:07)
[2018-02-16] MEDS: ASPIRIN EC 81 MG TAB PO SCH (10:07)
[2018-02-16] MEDS: amLODIPine BESYLATE 5 MG TAB PO SCH (10:07)
[2018-02-16] MEDS: ROSUVASTATIN CALCIUM 20 MG TAB PO SCH (10:07)
[2018-02-16] MEDS: ESCITALOPRAM OXALATE 10 MG TAB PO SCH (10:08)
[2018-02-16] MEDS: DUTASTERIDE 0.5 MG CAP PO SCH (10:08)
[2018-02-16] MEDS: TARCEVA PO SCH (10:08)
--- NOTE | 2018-02-16 12:36 | PDCARCONS ---
Cardiology Consult Reason for Consult: Recent non-Q-wave myocardial infarction, splenic embolism Chief Complaint: Mid epigastric pressure Requesting Physician: Jeronimo History of Present Illness: 73-year-old male admitted with mid epigastric discomfort. He was seen in late January with an episode of chest pain radiating to his left arm. At that time he had elevation in troponin. This was associated with a normal coronary angiogram with no flow limiting disease and mild atheroma. He had an echocardiogram done at that time which showed overall preserved LV systolic function with moderate aortic insufficiency and a sclerotic aortic valve. He had no regional wall motion abnormalities identified at that time. He is readmitted with an episode of mid epigastric discomfort. He was noted to have a splenic infarct. And I am asked to comment on current medical therapy. This is in the setting of lung cancer on Tarceva. This is widely metastatic. On my arrival he is having no chest pain, shortness of breath. He has had no PND orthopnea. He has had no palpitations syncope or near syncope. He has had no rash. He denies pain of the extremities. He has had no change in neurologic function or change in vision. Patient has no history of rheumatic valvular heart disease. He has no prior history of atrial fibrillation or other cardiac dysrhythmia. History Information - Allergies/Home Medication List Allergies/Adverse Reactions: Sulfa (Sulfonamide Antibiotics) Allergy (Unknown, Verified 02/15/18 13:38) Home Medications: Dutasteride 0.5 mg PO DAILY 09/14/16 [Last Taken 02/15/18] MIRTAZAPINE 15 mg PO HS 09/14/16 [Last Taken 02/14/18] Aspirin EC [Aspirin EC 81 mg (*)] 81 mg PO DAILY 02/09/18 [Last Taken 02/15/18] Cholecalciferol Vit D3 [Vitamin D3 (*)] 4,000 units PO DAILY 02/09/18 [Last Taken 02/15/18] Escitalopram Oxalate [Lexapro 10 MG] 10 mg PO DAILY 02/09/18 [Last Taken ] Herbals/Supplements -Info Only 1 ea PO DAILY 02/09/18 [Last Taken 02/15/18] Tarceva 150 mg PO DAILY 02/09/18 [Last Taken 02/15/18] EPINEPHrine [Epipen 0.3 MG] 0.3 mg IM ONCE PRN 02/15/18 [Last Taken Unknown] Rivaroxaban [Xarelto] 20 mg PO DAILY@19 02/15/18 [Last Taken 02/14/18] Rosuvastatin Calcium [Crestor 20mg (*)] 20 mg PO DAILY 02/15/18 [Last Taken ] I have personally reviewed and updated: family history, medical history, social history, surgical history Past Medical History: - Surgical History Reports: no pertinent surgical hx - Family History Positive for: non-pertinent - Social History Smoking Status: Never smoked Additional social history: Recent travel to [place]. Physical Exam Physical Exam: Temp Pulse Resp BP Pulse Ox 36.8 C 78 16 135/76 H 90 L 02/16/18 11:28 02/16/18 11:28 02/16/18 11:28 02/16/18 11:28 02/16/18 11:28 O2 (L/minute) 3 Lab and Imaging 02/15/18 22:10 02/15/18 14:14 WBC 11.96 10^3/uL (3.80-9.50) H 02/15/18 14:14 RBC 5.21 10^6/uL (4.40-6.38) 02/15/18 14:14 Hgb 16.0 g/dL (13.7-17.5) 02/15/18 22:10 POC Hgb 16.0 gm/dL (13.7-17.5) 02/15/18 14:17 Hct 46.6 % (40.0-51.0) 02/15/18 14:14 POC Hct 47 % (40-51) 02/15/18 14:17 MCV 89.4 fL (81.5-99.8) 02/15/18 14:14 MCH 30.1 pg (27.9-34.1) 02/15/18 14:14 MCHC 33.7 g/dL (32.4-36.7) 02/15/18 14:14 RDW 13.0 % (11.5-15.2) 02/15/18 14:14 Plt Count 124 10^3/uL (150-400) L 02/15/18 14:14 MPV 12.1 fL (8.7-11.7) H 02/15/18 14:14 Neut % (Auto) 47.7 % (39.3-74.2) 02/15/18 14:14 Lymph % (Auto) 43.6 % (15.0-45.0) 02/15/18 14:14 [place] % (Auto) 5.9 % (4.5-13.0) 02/15/18 14:14 Eos % (Auto) 1.9 % (0.6-7.6) 02/15/18 14:14 Baso % (Auto) 0.4 % (0.3-1.7) 02/15/18 14:14 Nucleat RBC Rel Count 0.0 % (0.0-0.2) 02/15/18 14:14 Absolute Neuts (auto) 5.70 10^3/uL (1.70-6.50) 02/15/18 14:14 Absolute Lymphs (auto) 5.21 10^3/uL (1.00-3.00) H 02/15/18 14:14 Absolute Monos (auto) 0.71 10^3/uL (0.30-0.80) 02/15/18 14:14 Absolute Eos (auto) 0.23 10^3/uL (0.03-0.40) 02/15/18 14:14 Absolute Basos (auto) 0.05 10^3/uL (0.02-0.10) 02/15/18 14:14 Absolute Nucleated RBC 0.00 10^3/uL (0-0.01) 02/15/18 14:14 Immature Gran % 0.5 % (0.0-1.1) 02/15/18 14:14 Immature Gran # 0.06 10^3/uL (0.00-0.10) 02/15/18 14:14 Platelet Estimate DECREASED (ADEQ) L 02/15/18 14:14 POC Sodium 143 mEq/L (135-145) 02/15/18 14:17 Sodium 142 mEq/L (135-145) 02/15/18 14:14 POC Potassium 3.7 mEq/L (3.3-5.0) 02/15/18 14:17 Potassium 3.9 mEq/L (3.3-5.0) 02/15/18 14:14 POC Chloride 107 mEq/L (97-110) 02/15/18 14:17 Chloride 108 mEq/L (97-110) 02/15/18 14:14 Carbon Dioxide 23 mEq/l (22-31) 02/15/18 14:14 Anion Gap 11 mEq/L (8-16) 02/15/18 14:14 POC BUN 20 mg/dL (7-23) 02/15/18 14:17 BUN 19 mg/dL (7-23) 02/15/18 14:14 Creatinine 1.2 mg/dL (0.7-1.3) 02/15/18 14:14 POC Creatinine 1.3 mg/dL (0.7-1.3) 02/15/18 14:17 Estimated GFR 59 02/15/18 14:14 Glucose 88 mg/dL (70-100) 02/15/18 14:14 POC Glucose 92 mg/dL (70-100) 02/15/18 14:17 Calcium 9.2 mg/dL (8.5-10.4) 02/15/18 14:14 Total Bilirubin 1.3 mg/dL (0.1-1.4) 02/15/18 14:14 Conjugated Bilirubin 0.4 mg/dL (0.0-0.5) 02/15/18 14:14 Unconjugated Bilirubin 0.9 mg/dL (0.0-1.1) 02/15/18 14:14 AST 39 IU/L (17-59) 02/15/18 14:14 ALT 40 IU/L (21-72) 02/15/18 14:14 Alkaline Phosphatase 118 IU/L (38-126) 02/15/18 14:14 POC Troponin I 0.41 ng/mL (0.00-0.08) H 02/15/18 14:03 Troponin I 1.150 ng/mL (0.000-0.034) H 02/15/18 22:10 NT-Pro-B Natriuret Pep 646 pg/mL (0-125) H 02/15/18 14:14 Total Protein 6.6 g/dL (6.3-8.2) 02/15/18 14:14 Albumin 4.0 g/dL (3.5-5.0) 02/15/18 14:14 Laboratory Tests 02/07/18 08:13 LDL Cholesterol, Calc 88 EKG additional interpertation: EK Brady kg today reveals sinus rhythm with nonspecific lateral T-wave flattening. This is not significantly changed from prior EKGs notably the ones in January. Echocardiogram: Echocardiogram from late January revealed preserved LV systolic function moderate aortic insufficiency with a sclerotic trileaflet aortic valve. There were no regional wall motion abnormalities. Normal right ventricular systolic pressure. Normal right ventricle. Coronary angiogram from late January done by my partner Dr. Ritchie were reviewed. Normal LV function. Mild nonobstructive atherosclerosis. A/P Assessment: Impression: Abdominal discomfort/distension. I do not think this represents recurrent acute coronary syndrome based on stable EKG, troponins. Review of his angiogram did not reveal significant obstructive disease. The patient is currently on daily aspirin. His LDL cholesterol is 88 and would recommend low- dose statin therapy. This would be given for its anti-inflammatory anti oxygen properties. No indication at this point for beta-thien Jun inhibition. Patient's splenic infarct may be associated with a cardiac source. He has no history of atrial fibrillation. Recent echocardiogram did not show regional wall motion abnormality nor was there a suggestion of an atrial septal defect with normal right atrial/right ventricular size. This study was not performed to exclude a PFO. He is appropriately anticoagulated. I do not think this represents occult endocarditis. Recommendations are for an echocardiogram with bubble study. Addition of low-dose statin therapy. Continue clinical follow-up. If cardiac source is still suspected based on multiple emboli or clinical history would consider implantation of a loop recorder and/or transesophageal echo. At this point I do not think this further investigation is warranted. Plan: Echocardiogram with bubble study. Low-dose Lipitor. Review of Systems Review of Systems: - Review of Systems Constitutional: denies: chills, fever, malaise EENTM: no symptoms reported Respiratory: no symptoms reported Cardiac: no symptoms reported Gastrointestinal/Abdominal: abdominal pain, abdominal distention. denies: constipation, diarrhea Genitourinary: no symptoms Musculoskelatal: no symptoms Skin: no symptoms Neurological: no symptoms Hematologic/Lymphatic: no symptoms reported Immunologic/allergic: no symptoms reported All Other Systems: Reviewed and Negative Past Medical History PMH: - Personal History Current Tetanus Diphtheria and Acellular Pertussis (TDAP): Yes Tetanus Vaccine Date: 2007 - Medical/Surgical History Hx Asthma: No Hx Chronic Respiratory Disease: No Hx Cardiac Disease: Yes Hx Diabetes: No Hx Renal Disease: No Hx Alcoholism: No Hx Cirrhosis: No Hx HIV/AIDS: No Hx Splenectomy or Spleen Trauma: No Other PMH: pmh- uriticaria, enlarged prostate, hld lungcancer/ PE - Social History Smoking Status: Never smoked Additional Social History:
--- NOTE | 2018-02-16 13:05 | ASMTCMCOM ---
CM Note CM Note Notes: Pt's chart reviewed for D/C planning. Pt is a 73 y/o male with metastatic small lung cancer, status post palliative radiation to right pelvis and looks like humerus. He was admitted to 02/09 with chest pain and an NSTEMI. He underwent cardiac catheterization that did not show any obstructive lesions and normal EF. He went home from the hospital on Monday and returned on 03/17 due to not feeling well, fatigue and pressure in his left chest. 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 He lives independently and has a son in [place], [facility] [phone]. CM met with Pt. Pt stated he had some confusion and was very tired. He was unable to provide details re confusion. He states that he does have friends who help him and does not believe he requires other services. OT and PT evals have been ordered. When he was last D/C no CM needs were identified.CM will follow. D/C Planning: TBD Date Signed: 02/16/2018 01:04 PM Electronically Signed By:Jodie Gonsales
--- NOTE | 2018-02-16 13:08 | ECHO ---
[email or web address] [address] Main: [phone] Fax: Transthoracic Echocardiogram Name: OSIEL SIMPSON MR#: [id number] Study Date: 02/16/2018 Study Time: 10:38 AM Date of : 1945 Age: 73 year(s) Height: ( ) Weight: ( ) BSA: Gender: Male Examination: Echo with Agitated Saline Indication: eval for PFO, splenic infarct Image Quality: Adequate Contrast: I.V. dose of agitated saline Requested by: Lisa Decker BP: 135 mmHg/76 mmHg Heart Rate: Rhythm: Indication: eval for PFO, splenic infarct Procedure Staff Local Hazmat Driver: Elli Anne [facility] Reading Physician: Travis Guadarrama MD Requesting Provider: Conclusions: No pericardial effusion. Concentric left ventricular hypertrophy. Ejection fraction 61% with no regional wall motion abnormalities moderate aortic insufficiency with a sclerotic aortic valve normal right ventricular systolic pressure. Injection of agitated saline revealed no evidence of right to left shunt. No source of emboli identified. Compared to prior study there has been no interval change. Measurements: Chambers Valvular Assessment AV/MV Valvular Assessment TV/PV Normal Normal Normal Name Value Range Name Value Range Name Value Range Ao Leticia (MM): 3.3 cm (2.2 cm-3.7 AV Vmax: 1.41 m/s (1 m/s-1.7 PV Vmax: 1.04 m/s (0.6 m/s-0.9 cm) m/s) m/s) IVSd (2D): 1.0 cm (0.6 cm-1.1 AV maxP mmHg ( - ) PV PGmax: 4 mmHg ( - ) cm) LVOT Vmax: 1.05 m/s (0.7 m/s-1.1 LVDd (2D): 4.3 cm (4.2 cm-5.9 m/s) cm) AR (PHT): 549 ms ( - ) LVDs (2D): 2.7 cm (2.1 cm-4 MV E Vmax: 0.47 m/s ( - ) cm) MV A Vmax: 0.42 m/s ( - ) LVPWd (2D): 1.1 cm (0.6 cm-1 MV E/A: 1.12 ( - ) cm) LVEF (BP): 61 % (>=55 %) RVDd(2D): 2.6 cm (1.9 cm-3.8 cmmm) Continued Measurements: Chambers Valvular Assessment AV/MV Name Value Name Value LADs Lon.2 cm MV DecTime: 162 m/s LA Area: 17.7 cm2 MV E' Septal: 0.08 m/s LA Volume: 45 ml MV E/E' Septal: 5.90 Patient: OSIEL SIMPSON Study Date: 02/16/2018 Page 1 of 2 10:38 AM TAPSE: 1.8 cm MV E/E' Lateral: 4.30 RA Area: 13.9 cm2 AR Vmax: 4.67 cm/s Additional Vessels Name Value Ao Ascendin.5 cm Findings: Left Ventricle: Normal size left ventricle. Mild concentric LV hypertrophy. Normal global systolic LV function. EF is 61 %. No regional wall motion abnormality. Normal diastolic LV function. Right Ventricle: Normal size right ventricle. Normal RV function. Left Atrium: The left atrium is normal in size. An agitated saline study was performed and was negative for intracardiac shunting. LA index volume 23.6ml/m2. Right Atrium: The right atrium is normal in size. Mitral Valve: The mitral valve is normal in appearance and function. Trivial to mild mitral regurgitation. No mitral stenosis is present. Aortic Valve: The aortic valve is tri-leaflet. There are two jets of aortic insufficiency, mild to moderate in severity. Mild aortic sclerosis. No aortic stenosis. Tricuspid Valve: The tricuspid valve appears normal. Trivial tricuspid valve regurgitation. Pulmonary artery pressure is not obtained due to inadequate TR jet. Pulmonic Valve: The pulmonic valve is normal in appearance and function. There is no pulmonic regurgitation seen. Aorta: Normal size aortic root measuring 3.3 cm. Normal size ascending aorta measuring 3.5 cm. IVC: The IVC is normal sized. Pericardium: No pericardial effusion. (No Signature Object) Patient: OSIEL SIMPSON Study Date: 02/16/2018 Page 2 of 2 10:38 AM [id number]
--- NOTE | 2018-02-16 15:10 | HOSPPROG ---
Hospitalist Progress Note Assessment/Plan: 73y male with c/o chest pain. First encounter, chart reviewed. D/W Dr Samuels, Dr Ruiz and cardiology. #Splenic infarct -stable -consult cards and hem/onc -on xeralto -no need for surgery at this time #Pain -stable -was elevated -consider colchicine or prednisone if ok with hem/onc #Chest pain -likely due to infarct but cardiac source being ruled out -ECHO with bubble -appreciate Dr Guadarrama consult #Met lung cancer -consult pending -cont meds #Hx PE -on xeralto Aug 2016 #Confusion -mild -pt didn't sleep well -consider MRI of brain, last one noted 2016 #Dispo -unclear -needs further monitoring and evaluation Subjective: Still ahving some chest pain. Feels tired. Objective: Vital Signs Temp Pulse Resp BP Pulse Ox 36.8 C 90 16 135/76 H 91 L 02/16/18 11:28 02/16/18 12:20 02/16/18 11:28 02/16/18 11:28 02/16/18 12:20 Laboratory Results 02/15/18 22:10 02/15/18 02/16/18 02/17/18 05:59 05:59 05:59 Output Total 250 250 Balance -250 -250 - Physical Exam Constitutional: appears nourished, chronically ill appearing, uncomfortable Eyes: PERRL, anicteric sclera, EOMI Ears, Nose, Mouth, Throat: moist mucous membranes, hearing normal, ears appear normal Cardiovascular: No JVD, No tachycardia, No edema Respiratory: no respiratory distress, no rales or rhonchi, reduced air movement Gastrointestinal: normoactive bowel sounds, No tenderness, No ascites Skin: warm, normal color, No mottled Musculoskeletal: no joint effusions, pain with ROM, generalized weakness Neurologic: AAOx3 Psychiatric: not encephalopathic, poor insight, poor judgement, poor memory ICD10 Worksheet Patient Problems: Problems Problem Status Onset Infarction of spleen Acute Acute coronary syndrome Acute Carcinoma, lung Acute Pneumothorax after biopsy Acute Pulmonary embolism Acute
--- NOTE | 2018-02-16 15:52 | PDMN ---
Medical Necessity Medical necessity: change to IP; los>2mn for splenic infarct, chest pain, abd pain and distention, and mild confusion; requires further monitoring and evaluation w/cardiology and heme/onc, echo w/bubble; comorbid metastatic lung CA , hx PE; per order and progress note 02/16/18
[2018-02-16] MEDS: ENOXAPARIN 120 MG/0.8 ML SYR SC SCH (18:23)
[2018-02-16] MEDS: MIRTAZAPINE 15 MG TAB PO SCH (20:20)
--- NOTE | 2018-02-16 23:29 | GCON ---
[f rep st] CONSULTATION DATE OF CONSULTATION: 02/16/2018 REFERRING PHYSICIAN: Scarlet Fox NP REASON FOR CONSULTATION: Splenic infarct. HISTORY OF PRESENT ILLNESS: Mr. Alvarenga is a 73-year-old man being treated for metastatic non-small cell lung cancer by Dr. Cisneros. He has been on Tarceva since diagnosis due to an EGFR mutation. He has had evidence of response with most recent restaging PET scan (11/20/2017) demonstrating stable disease compared with 07/20/2017. He was recently admitted, 02/09/2018, with chest pain and was found to have an elevated troponin, which was felt to be due to demand ischemia as he had a normal coronary angiogram. He was discharged the following day. He was admitted yesterday with left chest pain and was found to have a new splenic infarct on CT of the abdomen. Chest CT angiogram demonstrated no evidence of PE. He has been on therapeutic Lovenox (1.5 mg/kg daily) since August 2016 for pulmonary embolism, which occurred while he was in [place]. This very shortly preceded his diagnosis of metastatic lung cancer. He recently changed from Lovenox to Xarelto 20 mg daily. He reports being off Xarelto for about a day and a half when he was admitted recently. He reports pain in the left upper quadrant with a pleuritic component, which he feels is somewhat improved from yesterday. PAST MEDICAL HISTORY: 1. 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 He has received palliative radiation to the right pelvis and left proximal humerus. He has been on Tarceva since diagnosis. 2. History of PE, 08/2016. 3. Sleep apnea. 4. BPH. 5. First-degree AV block. PAST SURGICAL HISTORY: Unremarkable. FAMILY HISTORY: Noncontributory. His father and sister both had lung cancer and were both smokers. SOCIAL HISTORY: He lives in [place]. He is a since 2016. He drinks alcohol occasionally. Nonsmoker. REVIEW OF SYSTEMS: As above; otherwise negative by a 10-point review of systems. PHYSICAL EXAMINATION: VITAL SIGNS: Blood pressure 135/70, heart rate 75, respirations 20, 92% on 4 L, 91% on 1 L earlier today. He was placed on 4 L while sleeping. Afebrile. GENERAL: A pleasant gentleman in no acute distress. HEENT: No scleral icterus. CARDIOVASCULAR: Regular rate and rhythm. No pretibial edema. LUNGS: Clear to auscultation bilaterally. ABDOMEN: Soft, nontender, nondistended. No tenderness in the left upper quadrant on palpation. NEUROLOGIC: Grossly nonfocal. He is slightly confused about followup appointment dates in the office. LABORATORY DATA: No labs today. Yesterday, WBC 11.9, 48% neutrophils, 44% lymphocytes, hemoglobin 15.7, platelets 124,000. Normal CMP. RADIOLOGIC STUDIES: (02/15/2018): CT pulmonary angiogram demonstrated no evidence of PE. No acute findings. Abdominal CT with splenic infarct. No ascites. (02/15/2018): Echo with bubble study demonstrated no [id number]-tu-[id number] shunt. EF 61% with no wall motion abnormalities. IMPRESSION 1. 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 2. History of pulmonary embolism, August 2016. 3. Metastatic non-small cell lung cancer with stable disease on Tarceva. RECOMMENDATION: There is no obvious embolic source for the splenic infarct. It is not clear to me that this represents a failure of Xarelto as he did have an interruption in anticoagulation. He already has an indication for indefinite anticoagulation given his malignancy-associated pulmonary embolus. I recommend he resume Lovenox for approximately 1 week in order to allow some resolution of the splenic infarct and its associated pain. He has a followup appointment with Dr. Cisneros next week (02/22/2018 at 3:00 p.m.) If he is doing well at that time, consideration could be made of another trial of Xarelto. I suspect the most likely etiology of the splenic infarct is hypercoagulable state of malignancy versus a cardiac source of embolus. He has no abnormality documented on echocardiogram and has had no arrhythmias documented. /[id number]/MODL MTDD
[2018-02-17] MEDS: ASPIRIN EC 81 MG TAB PO SCH (10:03)
[2018-02-17] MEDS: DUTASTERIDE 0.5 MG CAP PO SCH (10:03)
[2018-02-17] MEDS: CHOLECALCIFEROL VIT D3 2,000 UNITS TAB/CAP PO SCH (10:03)
[2018-02-17] MEDS: ESCITALOPRAM OXALATE 10 MG TAB PO SCH (10:03)
[2018-02-17] MEDS: amLODIPine BESYLATE 5 MG TAB PO SCH (10:03)
[2018-02-17] MEDS: ROSUVASTATIN CALCIUM 20 MG TAB PO SCH (10:03)
[2018-02-17] MEDS: TARCEVA PO SCH (10:04)
--- NOTE | 2018-02-17 10:28 | HOSPPROG ---
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 missed doses during transition -now back to SQ Lovenox -follow-up Dr. Cisneros 1 week to consider whether re-try Xarelto * Metastatic lung cancer -Tarceva * Metabolic encephalopathy - mental status far from baseline per family -check head CT - consider MRI brain if confusion persists -? embolism to brain at time of splenic infarct, but non-focal exam -rule out infection - check CXR/UA * Positive troponin -recent negative cardiac cath - ? vasospasm * h/o PE -back to Lovenox as above * RADHA - CPAP Subjective: c/o SOB, no cough. per family very confused and not at all himself. Just did safari in [place] 1 month ago. Urine incontinence x 2 last night. Objective: Vital Signs Temp Pulse Resp BP Pulse Ox 36.8 C 70 20 135/75 H 94 02/17/18 07:19 02/17/18 07:19 02/17/18 07:19 02/17/18 10:03 02/17/18 07:19 02/16/18 02/17/18 02/18/18 05:59 05:59 05:59 Intake Total 300 Balance 300 ECHO - bubble negative Laboratory Tests 02/15/18 02/15/18 14:03 22:10 POC Troponin I 0.41 H Troponin I 1.150 H CT chest - no PE CT abd - splenic infarct Old chart reviewed - just admitted recently with negative cardiac cath - Physical Exam Constitutional: no apparent distress, appears nourished, not in pain Cardiovascular: regular rate and rhythym, no murmur, rub, or gallop Respiratory: no respiratory distress, no rales or rhonchi, clear to auscultation Gastrointestinal: normoactive bowel sounds, soft, non-tender abdomen, no palpable masses Skin: no rashes or abrasions, no fluctuance, no induration Neurologic: No AAOx3 Psychiatric: encephalopathic, poor insight, poor judgement, poor memory, No interacting appropriately, No anxious, No agitated ICD10 Worksheet Patient Problems: Problems Problem Status Onset Infarction of spleen Acute Acute coronary syndrome Acute Carcinoma, lung Acute Pneumothorax after biopsy Acute Pulmonary embolism Acute
[2018-02-17] MEDS ORDERED: FUROSEMIDE 40 MG/4 ML VIAL IVP ONE (11:32)
--- NOTE | 2018-02-17 13:18 | SOAPPROG ---
SOAP Progress Note Assessment/Plan: Assessment: 1) Metastatic lung cancer 2) Splenic infarct 3) Encephalopathy 4) H/O pulmonary embolism August 2016 Plan: Patient has been transitioned to Lovenox. Plan to continue Lovenox at discharge. Patient will follow up with Dr. Cisneros at discharge. His confusion seems mild. A head CT done today is unremarkable. ? whether this may be due to narcotic pain meds. If persists or worsens, agree that MRI may be reasonable. 02/17/18 13:14 02/17/18 13:16 Subjective: States pain is better. Answers questions appropriately Objective: Vital Signs Temp Pulse Resp BP Pulse Ox 36.7 C 78 20 126/74 H 94 02/17/18 11:04 02/17/18 11:04 02/17/18 11:04 02/17/18 11:04 02/17/18 11:04 02/16/18 02/17/18 02/18/18 05:59 05:59 05:59 Intake Total 300 Balance 300 - Time Spent With Patient Time Spent With Patient: 16 minutes Physical Exam - Physical Exam General Appearance: alert, no apparent distress EENT: PERRL/EOMI Abdomen: non-tender, soft Neuro/Psych: alert, normal mood/affect ICD10 Worksheet Patient Problems: Problems Problem Status Onset Infarction of spleen Acute Acute coronary syndrome Acute Carcinoma, lung Acute Pneumothorax after biopsy Acute Pulmonary embolism Acute
--- NOTE | 2018-02-17 16:33 | ASMTCMCOM ---
CM Note CM Note Notes: Pt becoming increasingly confused, dc plan uncertain. He is going for MRI, CM w/f. DC Plan: TBD Date Signed: 02/17/2018 04:33 PM Electronically Signed By:Mireya Poe RN
[2018-02-17] MEDS ORDERED: GADOBUTROL 10 ML VIAL IVP ONE (18:47)
[2018-02-17] MEDS: ENOXAPARIN 120 MG/0.8 ML SYR SC SCH (20:55)
[2018-02-17] MEDS: NITROGLYCERIN 0.4 MG BTL SL PRN (20:57)
[2018-02-17] MEDS: MIRTAZAPINE 15 MG TAB PO SCH (21:04)
--- NOTE | 2018-02-17 21:24 | CPEKG ---
Heart Rate: 87 RR Interval: 690 P-R Interval: 152 QRSD Interval: 84 QT Interval: 372 QTC Interval: 448 P [place]: 55 QRS [place]: 31 T Wave [place]: -56 EKG Severity - ABNORMAL ECG - EKG Impression: SINUS RHYTHM EKG Impression: PROBABLE LEFT ATRIAL ABNORMALITY EKG Impression: NONSPECIFIC T ABNORMALITIES, DIFFUSE LEADS Electronically Signed By: Kristy Willingham 18-Feb-2018 07:07:27
[2018-02-17] MEDS ORDERED: NITROGLYCERIN/DEXTROSE 250 ML IV SCH (22:00)
--- NOTE | 2018-02-17 22:12 | HOSPPROG ---
Hospitalist Progress Note Assessment/Plan: 40 total minutes of critical care time spent with this patient, at bedside, with son, coordinating with the following providers, specifically addressing the issue of suspected active coronary vasospasms as well as multifocal CVA, rendering him critically ill with high risk of worsening morbidity and/or mortality: -contacted by Dr. Thierry Steen, radiology, reporting to me that the patient's brain MRI demonstrates multifocal CVA, either cardioembolic in nature or watershed infarcts, with the most notable 1 at the left temporal occipital junction, with potentially 2 small metastatic lesions and no intracranial hemorrhage -contacted by the patient's nurse that he was experiencing abrupt onset of 5/10 chest pain, reportedly similar to his previous anginal chest pain, improved slightly to a 3/10 with sublingual nitroglycerin -responded to bedside, physical exam demonstrates a patient who is alert awake oriented times person only, concentration is 4/7, has what appears to be poor short-term memory and expressive aphasia, motor strength 5/5 bilateral upper and lower extremities with sensation intact bilaterally, has intact facial symmetry, heart rhythm is currently regular, with 1/6 systolic murmur at the sternum, lungs are clear to auscultation bilaterally -reviewed patient's most recent records, including progress note by Dr. Russo which indicates patient's mental status has been persistently altered comma brain MRI was obtained to determine whether there was underlying structural cause -a transthoracic echocardiogram demonstrated no notable valvular lesions, although the patient does have what appears to be a splenic infarction on CT -I was the treating physician who discharged the patient during his previous episode of care where he experienced suspected coronary vasospasm resulting in a non ST-elevation myocardial infarction with clean coronary arteries on catheterization by Dr. Edwin Ritchie, discharged on a calcium channel thien, sublingual nitroglycerin as needed -is unclear to me at the current time whether the patient's recurrent chest pain and likely coronary vasospasms is related to his multifocal CVA, but it is certainly possible that he may have been experiencing reduced cerebral perfusion over the past several days if he has been experiencing intermittent, prolonged vasospasms, and his troponins recently have been indicative that he may have added clinically relevant vasospasm with a troponin level of 1.5 this morning at 10:00 a.m. -it seems unlikely that his multifocal CVA secondary to left atrial clot, as the patient is on systemic anticoagulation with therapeutic Lovenox and has been since his most recent cardiac catheterization, but consideration will be given to possible transesophageal echocardiogram by Cardiology tomorrow -stroke order set has been placed, patient is being transferred to the step- down unit, discussed with patient's nurse, she will continue neuro checks tonight -patient will be placed on nitro drip and I have advised the nurse to discontinue if systolic blood pressures less than 110, to avoid worsening of potential watershed infarct -will repeat troponin level right now, repeat in a.m. -EKG during the above event demonstrated no significant ST elevations or ST depressions, although the patient's T-waves laterally are more pronounced on this evening's EKG done on his previous 1, which may be the natural sequelae of recent infarction -I have consulted with Dr. Canales in Cardiology will see tomorrow morning, have placed a Neurology consult for tomorrow as well -ordered carotid ultrasounds to evaluate for any evidence of severe stenosis or at risk plaque -I discussed all the above with the patient's son who was at bedside -d/w Dr. Mayo Objective: Vital Signs Temp Pulse Resp BP Pulse Ox 37.1 C 84 18 143/68 H 94 02/17/18 19:34 02/17/18 19:34 02/17/18 19:34 02/17/18 19:34 02/17/18 19:34 02/16/18 02/17/18 02/18/18 05:59 05:59 05:59 Intake Total 300 Output Total 550 Balance 300 -550 ICD10 Worksheet Patient Problems: Problems Problem Status Onset Pneumothorax after biopsy Acute Carcinoma, lung Acute Pulmonary embolism Acute Acute coronary syndrome Acute Infarction of spleen Acute
[2018-02-18 05:37] LABS: PLATELET COUNT 91 10^3/uL (150-400)
[2018-02-18] MEDS: ASPIRIN EC 81 MG TAB PO SCH (09:08)
[2018-02-18] MEDS: ESCITALOPRAM OXALATE 10 MG TAB PO SCH (09:08)
[2018-02-18] MEDS: CHOLECALCIFEROL VIT D3 2,000 UNITS TAB/CAP PO SCH (09:08)
[2018-02-18] MEDS: TARCEVA PO SCH (09:09)
[2018-02-18] MEDS: amLODIPine BESYLATE 5 MG TAB PO SCH (09:16)
--- NOTE | 2018-02-18 09:36 | HOSPPROG ---
Hospitalist Progress Note Assessment/Plan: CVA - consider cardioembolic source with multiple small infarcts on MRI (pers reviewed/interp) and splenic infarct. Carotid u/s reviewed, no flow limiting stenosis. -NPO for possibe SHALONDA today, discussed with Dr. Mar who had advised against SHALONDA, citing this is unlikely to exchange architect. I agree. -cont Lovenox, discussed risk of hemorrhagic conversion -Cont ASA, statin -cont telemetry to search for a fib as source of embolic shower -neurology consult pending Splenic infarct - consider cardio-embolic as above vs thrombus related to malignancy -cont anti-coagulation PE - on Lovenox Metastatic non-small cell lung cancer - s/p radiation to pelvis, possible small brain mets on MRI -oncology following, cont Tarceva -PET scheduled for Tu -f/u further onc recs NSTEMI - 01/2018 cath neg for obstructive lesions, elevated trop noted, possible vasospasm -cont ASA, statin, low dose CCB -d/c nitro drip to avoid hypotension RAFAEL - Cr up a bit this am, suspect pre-renal -IVF's while NPO Full code Dispo - cont inpt, transfer to with tele. Discussed outpt palliative care as pt lives alone with little support. He is agreeable. Subjective: Pt up in chair. Has some memory deficit, but communicates fairly clearly without aphasia. No CP or SOB. C/O some LUQ pain with deep breath. No fevers/chills. No headache or vision changes. Eating ok. Objective: Vital Signs Temp Pulse Resp BP Pulse Ox 36.7 C 73 18 116/54 L 96 02/18/18 07:31 02/18/18 07:31 02/18/18 07:31 02/18/18 09:16 02/18/18 07:31 Laboratory Results 02/18/18 05:20 02/18/18 05:20 02/17/18 02/18/18 02/19/18 05:59 05:59 05:59 Intake Total 300 9.9 Output Total 550 275 Balance 300 -540.1 -275 - Physical Exam Constitutional: no apparent distress Eyes: PERRL Ears, Nose, Mouth, Throat: moist mucous membranes Cardiovascular: regular rate and rhythym Respiratory: no respiratory distress, clear to auscultation Gastrointestinal: normoactive bowel sounds, soft, non-tender abdomen Skin: warm Musculoskeletal: full muscle strength Neurologic: AAOx3, other (+7 digits forward, neg pronator drift, no facial asymmetry) Psychiatric: interacting appropriately ICD10 Worksheet Patient Problems: Problems Problem Status Onset Infarction of spleen Acute Acute coronary syndrome Acute Carcinoma, lung Acute Pneumothorax after biopsy Acute Pulmonary embolism Acute
[2018-02-18] MEDS ORDERED: NS W/ 20 KCl/L 1,000 ML IV SCH (09:45)
--- NOTE | 2018-02-18 11:38 | NEUROPROG ---
Assessment: HOSPITAL NEUROLOGY CONSULT REQUESTING: Felecia Schmitz MD REASON: stroke HPI: 73 year old right-handed man with a history of metastatic non-small cell lung cancer, HTN, HLD, PE on rivaroxaban/ASA, recent NSTEMI presented to the hospital 02/15 with recurrent chest pain. He was admitted 02/09- with an NSTEMI. Patient experienced recurrent left-sided chest pain with fatigue which inspired another visit to the ED on 02/15. During his hospital stay he became more confused, which resulted in an MRI brain wow being checked. This revealed multifocal punctate areas of acute ischemia in both cerebral hemispheres and cerebellum. A couple punctate areas of enhancement were also identified in the left parietal cortex concerning for metastases vs. infarct. Patient and family deny any missed doses of rivaroxaban/ASA. He's not had a stroke/TIA in the past. His main issue is that of disorientation and memory loss. He's not had any weakness, sensory loss, visual disturbance, dizziness, speech/language changes. Of note, splenic infarct was also found on imaging during this hospital stay. ROS: As per the HPI, otherwise a complete 12 point ROS was performed and is negative ALLERGIES AND MEDS: As recorded in the EMR - reviewed and reconciled PFSH: As per the intake H&P by Dr. Decker from 02/15 EXAM: VS reviewed in EMR GEN: WDWN sitting in NAD HEENT: NCAT, sclera anicteric, conjunctiva not injected, MMM, oropharynx clear, no scalp tenderness NECK: supple, nontender, no meningismus CV: RRR s1 s2 wo m/r/c/g. Carotid pulses 2+ wo bruit NEURO: MS: awake, alert, oriented to self only. Speech nondysarthric. No language disturbance. Follows commands. Attends to both sides. Some episodic memory impairment regarding this hospitalization apparent on casual conversation. Mood depressed. Adequate fund of knowledge. Has insight. Dyspraxia present when attempting to mimic hand gestures or pantomime common tasks. CN: pupils 3mm round and reactive. Unable to visualize fundi. VFF. Primary gaze centered. Restricted upgaze. Facial sensation preserved. Face symmetric. Hearing grossly intact to finger rub. Palatoglossal movements intact. Shoulder shrug and head turn strong. MOTOR: normal bulk/tone. No adventitial movements. Full power throughout. On [place] testing, pronation of the RUE without drift. SENSORY: intact/symmetric LT/PP in all extremities. No extinction. COORD: no ataxia FN/HS. [place] a little labored. REFLEX: plantars equivocal. No clonus. DTRS 2/4. GAIT: Deferred to PT safety eval DATA REVIEW: Labs reviewed in EMR LDL 60 TTE - preserved EF, no atrial changes, no masses/thrombi/shunts Carotid doppler - < 50% stenosis [place] PERSONALLY INTERPRETED RESULTS AND DATA: MRI brain wow - multiple scatterd punctate areas of acute infarct in the bilateral cerebral hemispheres and cerebellum with cortical/juxtacortical/ subcortical localizations in all lobes. More prominent wedge shaped area of infarct present in the left parietal lobe. Two punctate areas of cortical enhancing lesions noted in the left parietal lobe. IMPRESSION AND RECOMMENDATIONS: // ACUTE ISCHEMIC STROKE // SPLENIC INFARCT // HX METASTATIC NON-SMALL CELL LUNG CANCER // HTN // HLD // HX PE ON ANTICOAGULATION/ANTIPLATELET Patient with new onset confusion and findings of multiple areas of infarct on MRI brain. Exam is most notable for disorientation, memory disruption and dyspraxia (fitting given the embolic shower with larger parietal area of stroke) . Pattern of stroke is most consistent with cardioembolism. This is even further supported by the new finding of a splenic infarct. He's not had any evidence of arrhythmia here this far. No PFO on TTE. He is, however, hypercoagulable with his cancer and prior PE. Two small areas of parietal cortical enhancement could be metastatic disease, as well. - recommend ongoing anticoagulation/antiplatelet therapy as per hematology/ oncology recs - patient and family aware of risk of hemorrhagic conversion of strokes, but he seems to have declared a very hypercoagulable state, so benefit of anticoagulation seems to outweigh the risk at this time. - cont daily statin - LDL at goal < 70 - goal normotension - on anti-HTN and not issues with accelerated BP - he's several days past his stroke so would not pursue permissive HTN - goal normoglycemia - avoid hypoglycemia - chcf A1c goal at least < 6.5 - SHALONDA today and cardiology to re-evaluate - PT/OT/TRAVERTINE INSTALLER consults - stroke education - monitor on tele - PET scan planned for this coming week - further investigation/management into potential brain mets per heme/onc. - will sign off. Recall PRN. Objective: Vital Signs Temp Pulse Resp BP Pulse Ox 36.7 C 73 18 116/54 L 96 02/18/18 07:31 02/18/18 07:31 02/18/18 07:31 02/18/18 09:16 02/18/18 07:31 Laboratory Results 02/18/18 05:20 02/18/18 05:20 02/17/18 02/18/18 02/19/18 05:59 05:59 05:59 Intake Total 300 9.9 Output Total 550 275 Balance 300 -540.1 -275 Allergies/Adverse Reactions: Sulfa (Sulfonamide Antibiotics) Allergy (Unknown, Verified 02/15/18 13:38)
[2018-02-18] MEDS: ROSUVASTATIN CALCIUM 20 MG TAB PO SCH (12:26)
--- NOTE | 2018-02-18 13:11 | PDCARPN ---
Cardiology Progress Note Assessment/Plan: Assessment: 1. Acute ischemic stroke 2. Splenic infarct 3. Metastatic non-small cell lung cancer 4. History of pulmonary embolism 5. Mild atherosclerosis with no evidence of flow limiting coronary disease on left heart catheterization January 2018 6. Normal left ventricular function. Mild to moderate aortic insufficiency. No cardioembolic source on transthoracic echo. Negative agitated saline contrast study Plan: -recommend lifelong anticoagulation with I have her Lovenox or Xarelto -recommend aspirin 81 mg daily lifelong -would not recommend transesophageal echocardiogram. I do not think this would change his medical management at this time. I think the risks of the procedure outweighed the benefits in a 73-year-old gentleman with metastatic lung cancer. -further recommendations per Hematology-Oncology -recommend consideration of palliative care consult -recommendations discussed with patient, patient's son and [id number]. -will sign off. Please call with further questions. 02/18/18 13:11 Subjective: Mr. Alvarenga is a pleasant 73-year-old gentleman who I was asked to evaluate today for consideration of possible transesophageal echocardiogram. He was seen in consultation by my partner on February 16 2018 secondary to mid epigastric pressure. In summary, Mr. Kamara has a history of non-small cell lung carcinoma diagnosed in 2017 that was initially diagnosed shortly after developing a pulmonary embolism. He had been treated with anticoagulation with Lovenox and change to Xarelto recently. He presented in January 2018 with complaints of chest pain and elevated troponin. He underwent diagnostic left heart catheterization demonstrating essentially unremarkable coronary angiography with no evidence of flow limiting disease and mild atherosclerotic [place]. Echocardiogram performed during this initial admission showed normal left ventricular function with moderate aortic insufficiency. No other significant valvular disease. He returned to the hospital approximately 02/15/2018 with complaints of epigastric discomfort. He was found to have splenic infarct. He was on Xarelto 20 mg daily at the time of his splenic infarct as well as aspirin 81 mg daily. He subsequently underwent repeat echocardiogram with agitated saline contrast study. Echocardiogram in can demonstrated normal left ventricular function mild to moderate aortic insufficiency and no evidence of cardioembolic source of splenic infarct. Agitated saline contrast study was negative for patent foramen ovale or atrial septal defect. Yesterday he became noticeably confused and underwent an MRI of the brain which demonstrated multifocal punctate areas of acute ischemia in both cerebral hemispheres and cerebellum. There are also evidence of enhancement in the left parietal cortex concerning for metastasis versus infarct. Of note, patient as well as his son and [id number] states that he has been compliant with his Xarelto and aspirin. He has not missed a single dose of medication. I have been asked to see patient today for consideration of transesophageal echocardiogram in the setting of MRI findings coupled with recent splenic infarct to assess for cardiac source of emboli. He was currently been changed back to Lovenox 1.5 milligrams/kilogram. He remains on aspirin 81 mg daily. He was seen in consultation by Neurology who recommended ongoing anticoagulation and antiplatelet therapy. Hypercoagulable state related to his underlying non-small cell metastatic lung cancer. Reviewed/Discussed With: family, hospitalist, multidisciplinary team Time Spent with Patient: greater than 25 minutes Time Spent with Patient: Greater than 25 minutes spent on this patients care, greater than 50% of time spent counseling, educating, and coordinating care regarding the above mentioned plan. Objective: Vital Signs (8 Hrs) Temp Pulse Resp BP Pulse Ox 02/18/18 09:16 116/54 L 02/18/18 07:31 36.7 C 73 18 107/63 96 02/18/18 06:03 72 22 H 110/59 L 93 02/18/18 05:30 72 102/59 L 95 Intake/Output (24 Hrs) 02/17/18 02/18/18 02/19/18 05:59 05:59 05:59 Intake Total 300 9.9 Output Total 550 275 Balance 300 -540.1 -275 Intake: Oral (ml) 300 IV Infused (ml) 9.9 Nitroglycerin/Dextrose 9.9 250 ml @ Titrate IV CONT JOSEPH Rx#:[id number] Output: Urine (ml) 550 275 Urinal 550 275 Other: Intake Quantity Yes Sufficient Number of Voids Incontinence 1 Urinal 1 Number of Stools Toilet 1 Result Diagrams: 02/18/18 05:20 02/18/18 05:20 Cardiac Labs: Cardiac Lab Results (72 Hrs) 02/18/18 02/17/18 02/17/18 05:20 22:25 10:00 Troponin I 2.370 H 1.630 H 1.550 H - Physical Exam Constitutional: WDWN, no apparent distress Cardiovascular: regular rate and rhythm, no murmurs, no rubs, no gallops Respiratory: clear to auscultate bilat Neurologic: AAOx3 ICD10 Worksheet Patient Problems: Problems Problem Status Onset Infarction of spleen Acute Acute coronary syndrome Acute Carcinoma, lung Acute Pneumothorax after biopsy Acute Pulmonary embolism Acute
[2018-02-18] MEDS: DUTASTERIDE 0.5 MG CAP PO SCH (14:23)
--- NOTE | 2018-02-18 15:53 | SOAPPROG ---
SOAP Progress Note Assessment/Plan: Assessment: 1) Metastatic lung cancer 2) Splenic infarct 3) Encephalopathy 4) H/O pulmonary embolism August 2016 5) Multiple cerebral infarcts Plan: MRI yesterday revealed multiple embolic areas. Source unclear, though I suspect that underlying hypercoaguable state related to his cancer has played a contributing role. Patient has been transitioned to Lovenox. At this point I believe that Lovenox should be continued indefinitely as this is best studied in patients with malignancy related thrombosis. I would tend to agree with cardiology that a SHALONDA would not alter management. His lung cancer is currently under good control with Tarceva, which should be resumed at discharge. Family plans a palliative care consult. I met with patient's son (Elijah) today to discuss the above. I agree with not intensifying care, but think that it is reasonable to continue his current palliative therapy. Our service will continue to follow the patent, and he will follow up with Dr. Cisneros at discharge. Subjective: Alberto had an MRI yesterday which reveals multifocal CVA. He remains on Lovenox. He is asleep when seen, but easily awakens. Objective: Vital Signs Temp Pulse Resp BP Pulse Ox 36.8 C 77 18 115/63 94 02/18/18 12:00 02/18/18 12:00 02/18/18 12:00 02/18/18 12:00 02/18/18 12:00 Laboratory Results 02/18/18 05:20 02/18/18 05:20 02/17/18 02/18/18 02/19/18 05:59 05:59 05:59 Intake Total 300 9.9 Output Total 550 275 Balance 300 -540.1 -275 - Time Spent With Patient Time Spent With Patient: 25 minutes Physical Exam - Physical Exam General Appearance: alert, no apparent distress EENT: PERRL/EOMI Respiratory: lungs clear Neuro/Psych: oriented x 3, other (Asleep, easliy awakens. Moves all 4 extremities.) ICD10 Worksheet Patient Problems: Problems Problem Status Onset Infarction of spleen Acute Acute coronary syndrome Acute Carcinoma, lung Acute Pneumothorax after biopsy Acute Pulmonary embolism Acute
[2018-02-18] MEDS: ENOXAPARIN 120 MG/0.8 ML SYR SC SCH (21:12)
[2018-02-18] MEDS: MIRTAZAPINE 15 MG TAB PO SCH (21:12)
[2018-02-19 04:52] LABS: PLATELET COUNT 86 10^3/uL (150-400)
[2018-02-19] MEDS: ESCITALOPRAM OXALATE 10 MG TAB PO SCH (11:17)
[2018-02-19] MEDS: DUTASTERIDE 0.5 MG CAP PO SCH (11:17)
[2018-02-19] MEDS: amLODIPine BESYLATE 5 MG TAB PO SCH (11:18)
[2018-02-19] MEDS: ROSUVASTATIN CALCIUM 20 MG TAB PO SCH (11:18)
[2018-02-19] MEDS: ASPIRIN EC 81 MG TAB PO SCH (11:23)
[2018-02-19] MEDS: CHOLECALCIFEROL VIT D3 2,000 UNITS TAB/CAP PO SCH (11:23)
[2018-02-19] MEDS: TARCEVA PO SCH (11:24)
--- NOTE | 2018-02-19 12:20 | HOSPPROG ---
Hospitalist Progress Note Assessment/Plan: CVA - likely cardioembolic source with multiple small infarcts on MRI (pers reviewed/interp) and splenic infarct. Carotid u/s reviewed, no flow limiting stenosis. -SHALONDA deferred as unlikely to electronic data interchange specialist -cont Lovenox, discussed risk of hemorrhagic conversion -Cont ASA, statin -cont telemetry to search for a fib as source of embolic shower -neurology consult appreciated Splenic infarct - consider cardio-embolic as above vs thrombus related to malignancy -cont anti-coagulation (1/2 dose planned due to low plts) PE - on Lovenox, though will decrease to half dose today with low platelets, will d/w heme Thrombocytopenia - plts 124 --> 86 -cont close monitoring with anti-coagulation, reduced to half dose today Metastatic non-small cell lung cancer - s/p radiation to pelvis, possible small brain mets on MRI -oncology following, cont Tarceva -PET scheduled for Tues -f/u further onc recs NSTEMI - 01/2018 cath neg for obstructive lesions, elevated trop noted, possible vasospasm -cont ASA, statin, low dose CCB -d/c nitro drip to avoid hypotension RAFAEL - Cr up a bit this am, suspect pre-renal Full code Dispo - cont inpt, dispo to home with 24 hr supervision vs inpt rehab. Pt prefers home, but family more comfortable with inpt rehab. Palliative care meeting today, planning for outpt PC services. Subjective: Pt feels ok. Denies CP or SOB. He is unsteady on his feet. Adequate oral intake. Objective: Vital Signs Temp Pulse Resp BP Pulse Ox 36.7 C 70 16 114/62 91 L 02/19/18 08:00 02/19/18 08:00 02/19/18 04:46 02/19/18 11:18 02/19/18 08:00 Laboratory Results 02/19/18 04:18 02/19/18 04:18 02/18/18 02/19/18 02/20/18 05:59 05:59 05:59 Intake Total 9.9 500 Output Total 550 576 Balance -540.1 -76 - Physical Exam Constitutional: no apparent distress Eyes: PERRL Ears, Nose, Mouth, Throat: moist mucous membranes Cardiovascular: regular rate and rhythym Respiratory: no respiratory distress, clear to auscultation Gastrointestinal: normoactive bowel sounds, soft, non-tender abdomen Skin: warm Musculoskeletal: full muscle strength Neurologic: AAOx3 Psychiatric: interacting appropriately ICD10 Worksheet Patient Problems: Problems Problem Status Onset Infarction of spleen Acute Acute coronary syndrome Acute Carcinoma, lung Acute Pneumothorax after biopsy Acute Pulmonary embolism Acute
[2018-02-19] MEDS ORDERED: ENOXAPARIN 120 MG/0.8 ML SYR SC SCH (12:31)
--- NOTE | 2018-02-19 14:10 | SOAPPROG ---
SOAP Progress Note Assessment/Plan: E&M lung cancer * Metastatic non-small cell lung cancer, EGFR positive: At this point his disease appears to be stable on Tarceva. The plan is to continue the medication and follow-up with Dr. Cisneros. He is coming up due for staging CT scans but just had CT of his chest abdomen pelvis. * Splenic infarct:Definitely causing the left upper quadrant pain and I wonder if it might of been causing his pain in the chest week and a half ago. Etiology is probably related to the multiple small embolic strokes as well. * Multiple cerebral infarcts: With history of pulmonary embolism, he is at high risk of clotting and seems to have failed rivaroxaban. Plan is to keep him on low molecular weight heparin to prevent further clots. * Thrombocytopenia: His platelet count is dropped a little bit since admission but that could be other explanations. At this point I recommend continuing Lovenox but watching it closely. If it continues to drop we may need to consider switching therapy. I calculated his 4T score and it came out low probability. Subjective: He was in the room alone this morning. He denies any new weaknesses or other new neurological complaints. He still has not been walking much and had not seen physical therapy yet this morning. He denied any chest pain or shortness of breath. He still has some pain in the left upper quadrant. Objective: Vital Signs Temp Pulse Resp BP Pulse Ox 36.9 C 72 14 109/57 L 92 02/19/18 13:10 02/19/18 13:10 02/19/18 13:10 02/19/18 13:10 02/19/18 13:10 Laboratory Results 02/19/18 04:18 02/19/18 04:18 02/18/18 02/19/18 02/20/18 05:59 05:59 05:59 Intake Total 9.9 500 Output Total 550 576 Balance -540.1 -76 Physical Exam - Physical Exam General Appearance: no apparent distress Respiratory: lungs clear Cardiac/Chest: regular rate, rhythm Abdomen: soft, No non-tender (LUQ) Neuro/Psych: no motor/sensory deficits ICD10 Worksheet Patient Problems: Problems Problem Status Onset Infarction of spleen Acute Acute coronary syndrome Acute Carcinoma, lung Acute Pneumothorax after biopsy Acute Pulmonary embolism Acute
--- NOTE | 2018-02-19 14:28 | ASMTCMCOM ---
CM Note CM Note Notes: CM spoke with energy conservation representative from [facility]. Pt told her that he wasn't sure whether he wanted to go there. CM then spoke with Pt's who had some concerns re [facility] and wanted to revisit [facility]. [facility] response to the referral indicated that they needed more information. CM both called Carol at [facility] and responded to the referral on [employer]. Waiting to hear back. D/C Plan: SNF Rehab Date Signed: 02/19/2018 02:27 PM Electronically Signed By:Jodie Gonsales
--- NOTE | 2018-02-19 15:21 | ASMTCMCOM ---
CM Note CM Note Notes: Pt had a palliative care mtg today. He is unclear what kind of care he may need when he is D/C'ed. Per chart review, physical therapy has ended due to his goals being met. They are recommending that he return home with 24 hour supervision. Occupational therapy is recommending home with 24 hour supervision or in-pt rehab. Both have concerns about his speech and have suggested speech therapy may be helpful. CM will follow. D/C Plan: TBD Date Signed: 02/19/2018 02:45 PM Electronically Signed By:Jodie Gonsales
--- NOTE | 2018-02-19 15:22 | ASMTCMCOM ---
CM Note CM Note Notes: Please disregard CM note written 02/19/18 at 4:27PM. It was written in error. Date Signed: 02/19/2018 03:21 PM Electronically Signed By:Jodie Gonsales
[2018-02-19] MEDS: NITROGLYCERIN 0.4 MG BTL SL PRN ×3 (16:13→17:25)
--- NOTE | 2018-02-19 16:25 | CPEKG ---
Heart Rate: 91 RR Interval: 659 P-R Interval: 144 QRSD Interval: 90 QT Interval: 348 QTC Interval: 429 P [place]: 66 QRS [place]: 41 T Wave [place]: -38 EKG Severity - ABNORMAL ECG - EKG Impression: SINUS RHYTHM EKG Impression: NONSPECIFIC T ABNORMALITIES, INFERIOR LEADS Electronically Signed By: Pierre Reyes 21-Feb-2018 11:01:41
[2018-02-19] MEDS: ISOSORBIDE MONONITRATE 30 MG TAB.SR PO SCH (16:30)
[2018-02-19] MEDS: ENOXAPARIN 120 MG/0.8 ML SYR SC SCH (19:19)
[2018-02-19] MEDS: MIRTAZAPINE 15 MG TAB PO SCH (21:09)
[2018-02-20] MEDS: ESCITALOPRAM OXALATE 10 MG TAB PO SCH (10:32)
[2018-02-20] MEDS: amLODIPine BESYLATE 5 MG TAB PO SCH (10:32)
[2018-02-20] MEDS: CHOLECALCIFEROL VIT D3 2,000 UNITS TAB/CAP PO SCH (10:32)
[2018-02-20] MEDS: ASPIRIN EC 81 MG TAB PO SCH (10:32)
[2018-02-20] MEDS: ROSUVASTATIN CALCIUM 20 MG TAB PO SCH (10:32)
[2018-02-20] MEDS: ISOSORBIDE MONONITRATE 30 MG TAB.SR PO SCH (10:33)
[2018-02-20] MEDS: DUTASTERIDE 0.5 MG CAP PO SCH (10:33)
[2018-02-20] MEDS: TARCEVA PO SCH (10:34)
--- NOTE | 2018-02-20 14:33 | ASMTCMCOM ---
CM Note CM Note Notes: Pt's sons had D/C to [facility]; nancy also recommending this. CM spoke to [facility] and was told they did not believe that Pt had thestamina neccesary for their program. Pt's [id number]-so-gns and Pt were told this. Referrals were then made to [facility], [facility] and [facility]. CM to follow. D/C Plan: TBD Date Signed: 02/20/2018 02:33 PM Electronically Signed By:Jodie Gonsales
--- NOTE | 2018-02-20 14:49 | HOSPPROG ---
Hospitalist Progress Note Assessment/Plan: CVA - likely cardioembolic source with multiple small infarcts on MRI (pers reviewed/interp) and splenic infarct. Carotid u/s reviewed, no flow limiting stenosis. -SHALONDA deferred as unlikely to manager care management -cont Lovenox, discussed risk of hemorrhagic conversion -Cont ASA, statin -cont telemetry to search for a fib as source of embolic shower, consider outpt event monitor -neurology consult appreciated Splenic infarct - consider cardio-embolic as above vs thrombus related to malignancy -cont anti-coagulation with Lovenox (failed xarelto) PE - Lovenox Thrombocytopenia - plts stable ~90K over past few days -cont close monitoring with anti-coagulation Metastatic non-small cell lung cancer - s/p radiation to pelvis, possible small brain mets on MRI -oncology following, cont Tarceva, followed by Dr. Cisneros at [facility] -PET scheduled for Thurs NSTEMI - 01/2018 cath neg for obstructive lesions, elevated trop noted, suspect vasospasm -cont ASA, statin, low dose CCB Chest pain - c/w vasospasm, responded to SL nitro during STAT team call last night -add Imdur to hopefully prevent further episodes -cont amlodipine, up-titrate if BP can tolerate -prn SL ntg for recurrent symptoms -cont PCU monitoring RAFAEL - improved Full code Dispo - cont inpt, planning for SNF rehab, CM working on options Objective: Vital Signs Temp Pulse Resp BP Pulse Ox 36.6 C 64 16 108/56 L 95 02/20/18 11:50 02/20/18 11:50 02/20/18 11:50 02/20/18 11:50 02/20/18 11:50 Laboratory Results 02/20/18 03:23 02/19/18 04:18 02/19/18 02/20/18 02/21/18 05:59 05:59 05:59 Intake Total 500 950 Output Total 576 Balance -76 950 ICD10 Worksheet Patient Problems: Problems Problem Status Onset Infarction of spleen Acute Acute coronary syndrome Acute Carcinoma, lung Acute Pneumothorax after biopsy Acute Pulmonary embolism Acute
--- NOTE | 2018-02-20 15:16 | SOAPPROG ---
SOAP Progress Note Assessment/Plan: E&M lung cancer * Metastatic non-small cell lung cancer, EGFR positive: At this point his disease appears to be stable on Tarceva. The plan is to continue the medication and follow-up with Dr. Cisneros. He is due for staging PET/CT scans after discharge. * Splenic infarct: Not the cause of the chest pain. Continue LMWH. Etiology is probably related to the multiple small embolic strokes as well. * Multiple cerebral infarcts: With history of pulmonary embolism, he is at high risk of clotting and seems to have failed rivaroxaban. Plan is to keep him on LMWH to prevent further clots. * Thrombocytopenia: His platelet count is dropped a little bit since admission but currently stable. I recommend continuing Lovenox and watch it closely. I calculated his 4T score and it came out low probability. Subjective: Had episode of chest pain last night c/w coronary artery spasm. Better with nitro. Son with patient. Feeling well today. Objective: Vital Signs Temp Pulse Resp BP Pulse Ox 36.6 C 64 16 108/56 L 95 02/20/18 11:50 02/20/18 11:50 02/20/18 11:50 02/20/18 11:50 02/20/18 11:50 Laboratory Results 02/20/18 03:23 02/19/18 04:18 02/19/18 02/20/18 02/21/18 05:59 05:59 05:59 Intake Total 500 950 Output Total 576 Balance -76 950 Physical Exam - Physical Exam General Appearance: no apparent distress Respiratory: lungs clear Cardiac/Chest: regular rate, rhythm ICD10 Worksheet Patient Problems: Problems Problem Status Onset Infarction of spleen Acute Acute coronary syndrome Acute Carcinoma, lung Acute Pneumothorax after biopsy Acute Pulmonary embolism Acute
[2018-02-20] MEDS: NITROGLYCERIN 0.4 MG BTL SL PRN (17:01)
--- NOTE | 2018-02-20 17:08 | SOAPPROG ---
STEVE Progress Note Assessment/Plan: 1. Prinzmetals Angina - Pt presents with chest pain c/w angina. He has troponin elevations associated with his chest pain. Some episodes of chest pain are associated with dynamic ST and T changes. Cardiac catheterization with mild non-flow limiting disease. 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 Symptoms not adequately controlled with amlodipine. No further episodes since starting long acting NTG. ? Tarceva as potential precipitant. SC has been reported with this agent. Will discuss with oncology. 2. 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 No obvious source identified. May be related to xarelto failure. No further events since transitioning to lovenox. 3. lung cancer Subjective: No chest pain No orthopnea or PND Objective: Vital Signs Temp Pulse Resp BP Pulse Ox 36.8 C 72 18 120/59 L 90 L 02/20/18 16:00 02/20/18 16:00 02/20/18 16:00 02/20/18 16:00 02/20/18 16:00 Laboratory Results 02/20/18 03:23 02/19/18 04:18 02/19/18 02/20/18 02/21/18 05:59 05:59 05:59 Intake Total 500 950 Output Total 576 Balance -76 950 - Time Spent With Patient Time Spent With Patient: Greater than 50% of this 25 min visit was spent discussing the case with care team and family. Physical Exam - Physical Exam General Appearance: alert Cardiac/Chest: regular rate, rhythm Neuro/Psych: alert ICD10 Worksheet Patient Problems: Problems Problem Status Onset Infarction of spleen Acute Acute coronary syndrome Acute Carcinoma, lung Acute Pneumothorax after biopsy Acute Pulmonary embolism Acute
[2018-02-20] MEDS ORDERED: amLODIPine BESYLATE 5 MG TAB PO SCH (17:15)
[2018-02-20] MEDS: ENOXAPARIN 120 MG/0.8 ML SYR SC SCH (18:39)
[2018-02-20] MEDS: MIRTAZAPINE 15 MG TAB PO SCH (21:38)
[2018-02-20] MEDS ORDERED: guaiFENesin 600 MG TAB.ER PO PRN (22:04)
[2018-02-21] MEDS: ESCITALOPRAM OXALATE 10 MG TAB PO SCH (08:05)
[2018-02-21] MEDS: ROSUVASTATIN CALCIUM 20 MG TAB PO SCH (08:06)
[2018-02-21] MEDS: ISOSORBIDE MONONITRATE 30 MG TAB.SR PO SCH (08:06)
[2018-02-21] MEDS: CHOLECALCIFEROL VIT D3 2,000 UNITS TAB/CAP PO SCH (08:06)
[2018-02-21] MEDS: amLODIPine BESYLATE 5 MG TAB PO SCH (08:07)
[2018-02-21] MEDS: DUTASTERIDE 0.5 MG CAP PO SCH (08:07)
[2018-02-21] MEDS: ASPIRIN EC 81 MG TAB PO SCH (08:07)
[2018-02-21] MEDS: TARCEVA PO SCH (08:08)
--- NOTE | 2018-02-21 10:30 | HOSPPROG ---
Hospitalist Progress Note Assessment/Plan: CVA - suspect cardioembolic source with multiple small infarcts on MRI and splenic infarct. Carotid u/s with no flow limiting stenosis. 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 Cisneros at [facility] -PET scheduled for Thurs NSTEMI - 01/2018 cath neg for obstructive lesions, elevated trop noted, suspect vasospasm -cont ASA, statin, low dose CCB Prinzmetal's angina - pain c/w vasospasm, responsive to nitrates. Discussed with cards, Tarceva could be causative, per UpToDate, 2% risk of [place]. -cont imdur, prn SL ntg -up-titrate amlodipine given recurrent symptoms last night -cont PCU monitoring -discuss Tarceva with oncology, ?contributory RAFAEL - improved Full code Dispo - cont inpt, planning for SNF rehab, possibly tomorrow, CM working on options Objective: Vital Signs Temp Pulse Resp BP Pulse Ox 37.1 C 68 14 137/69 H 91 L 02/21/18 07:53 02/21/18 07:53 02/21/18 07:53 02/21/18 08:07 02/21/18 07:53 Laboratory Results 02/21/18 03:18 02/19/18 04:18 02/20/18 02/21/18 02/22/18 05:59 05:59 05:59 Intake Total 950 250 Balance 950 250 - Physical Exam Constitutional: no apparent distress Eyes: PERRL Ears, Nose, Mouth, Throat: moist mucous membranes Cardiovascular: regular rate and rhythym Respiratory: no respiratory distress, clear to auscultation Gastrointestinal: normoactive bowel sounds, soft, non-tender abdomen Skin: warm Musculoskeletal: full muscle strength Neurologic: AAOx3 Psychiatric: interacting appropriately ICD10 Worksheet Patient Problems: Problems Problem Status Onset Infarction of spleen Acute Acute coronary syndrome Acute Carcinoma, lung Acute Pneumothorax after biopsy Acute Pulmonary embolism Acute
[2018-02-21] MEDS: MIRTAZAPINE 15 MG TAB PO SCH (20:38)
[2018-02-21] MEDS: ENOXAPARIN 120 MG/0.8 ML SYR SC SCH (20:38)
[2018-02-22] MEDS: ASPIRIN EC 81 MG TAB PO SCH (08:08)
[2018-02-22] MEDS: CHOLECALCIFEROL VIT D3 2,000 UNITS TAB/CAP PO SCH (08:08)
[2018-02-22] MEDS: amLODIPine BESYLATE 5 MG TAB PO SCH (08:08)
[2018-02-22] MEDS: DUTASTERIDE 0.5 MG CAP PO SCH (08:08)
[2018-02-22] MEDS: ROSUVASTATIN CALCIUM 20 MG TAB PO SCH (08:08)
[2018-02-22] MEDS: ISOSORBIDE MONONITRATE 30 MG TAB.SR PO SCH (08:08)
[2018-02-22] MEDS: ESCITALOPRAM OXALATE 10 MG TAB PO SCH (08:08)
[2018-02-22] MEDS: TARCEVA PO SCH (08:09)
--- NOTE | 2018-02-22 12:46 | SOAPPROG ---
SOAP Progress Note Assessment/Plan: E&M lung cancer * Metastatic non-small cell lung cancer, EGFR positive: At this point his disease appears to be stable on Tarceva since 10/07. The plan is to continue the medication and follow-up with Dr. Cisneros. He is due for staging PET/CT scans after discharge. He may also have new, small mets so needs follow up. * Splenic infarct: Not the cause of the chest pain. Continue LMWH. Etiology is probably related to the multiple small embolic strokes as well. * Multiple cerebral infarcts: With history of pulmonary embolism, he is at high risk of clotting and seems to have failed rivaroxaban. Plan is to keep him on LMWH to prevent further clots. * Thrombocytopenia: His platelet count has stabilized and improved while on LMWH. * Chest Pain: thoughts to be coronary artery spasms. Seems unlikely to be related to Tarceva as he has been on the drug for 18 months without problem. Better on Imdur. D/W Dr. Moore. Subjective: No further chest pain episodes since starting Imdur. No acute complaints. Objective: Vital Signs Temp Pulse Resp BP Pulse Ox 37.0 C 70 20 108/56 L 93 02/22/18 11:12 02/22/18 11:12 02/22/18 11:12 02/22/18 11:12 02/22/18 11:12 Laboratory Results 02/22/18 04:05 02/19/18 04:18 02/21/18 02/22/18 02/23/18 05:59 05:59 05:59 Intake Total 250 850 Balance 250 850 Physical Exam - Physical Exam General Appearance: no apparent distress ICD10 Worksheet Patient Problems: Problems Problem Status Onset Infarction of spleen Acute Acute coronary syndrome Acute Carcinoma, lung Acute Pneumothorax after biopsy Acute Pulmonary embolism Acute
--- NOTE | 2018-02-22 13:36 | HOSPPROG ---
Hospitalist Progress Note Assessment/Plan: CVA - suspect cardioembolic source with multiple small infarcts on MRI and splenic infarct. Carotid u/s with no flow limiting stenosis. 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 Cisneros at [facility] (see notes below re: possible Tarceva side effects) -PET scheduled for Mon NSTEMI - 01/2018 cath neg for obstructive lesions, elevated trop noted, suspect vasospasm -cont ASA, statin, low dose CCB Prinzmetal's angina - pain c/w vasospasm, responsive to nitrates. Discussed with cards, Tarceva could be causative, per UpToDate, 2% risk of [place]. -cont imdur, norvasc, prn SL ntg -discussed Tarceva with oncology, ?contributory, pt will have f/u conversation with primary onc, Dr. Cisneros [facility] - in setting of lung cancer and possible pneumonitis in right lung field -needs f/u CT imaging to re-evaluate right lung abnormality RAFAEL - improved Full code Dispo - cont inpt, planning for d/c to inpt rehab tomorrow, will have bone scan tomorrow at 1 PM, then to inpt rehab (accepted by Dr. Kaba) Subjective: Pt doing ok, no events overnight. No CP or SOB. Mentation still slow. No fevers/chills. Taking po well. Objective: Vital Signs Temp Pulse Resp BP Pulse Ox 37.0 C 70 20 108/56 L 93 02/22/18 11:12 02/22/18 11:12 02/22/18 11:12 02/22/18 11:12 02/22/18 11:12 Laboratory Results 02/22/18 04:05 02/19/18 04:02/21/18 02/22/18 02/23/18 05:59 05:59 05:59 Intake Total 250 850 Balance 250 850 - Physical Exam Constitutional: no apparent distress Eyes: PERRL Ears, Nose, Mouth, Throat: moist mucous membranes Cardiovascular: regular rate and rhythym, no murmur, rub, or gallop Respiratory: no respiratory distress, clear to auscultation Gastrointestinal: normoactive bowel sounds, soft, non-tender abdomen Skin: warm Musculoskeletal: full muscle strength Neurologic: AAOx3 Psychiatric: interacting appropriately ICD10 Worksheet Patient Problems: Problems Problem Status Onset Infarction of spleen Acute Acute coronary syndrome Acute Carcinoma, lung Acute Pneumothorax after biopsy Acute Pulmonary embolism Acute
--- NOTE | 2018-02-22 14:36 | ASMTCMCOM ---
CM Note CM Note Notes: Patient will discharge tomorrow. He has a PET scan at [facility] at 1300. I was unable to make this any earlier, so the plan is that patient will be discharged from [facility] around midday, and his family will get him over to [facility]. After his PET scan, he will be transported to [facility]. I have arranged wheelchair van transport through [place] at 1430. Patient's son Jewel will arrange payment. I notified Dianne at [facility] of the plan, and she agreed. Case Management will make final arrangements tomorrow. Date Signed: 02/22/2018 02:36 PM Electronically Signed By:Zenaida Mcneil RN
--- NOTE | 2018-02-22 15:53 | ASMTCMCOM ---
CM Note CM Note Notes: Referral for outpatient palliative care services sent to [facility] per patient and son Jewel's request. Date Signed: 02/22/2018 03:52 PM Electronically Signed By:Zenaida Mcneil RN
--- NOTE | 2018-02-22 17:28 | PDIAF ---
- Diagnosis Diagnosis: metastatic lung cancer, CVA, splenic infarct Code Status: Do Not Resuscitate - Medication Management Discharge Medications: Medications to Continue on Transfer Dutasteride 0.5 mg PO DAILY 09/14/16 [Last Taken 02/15/18] MIRTAZAPINE 15 mg PO HS 09/14/16 [Last Taken 02/14/18] Aspirin EC [Aspirin EC 81 mg (*)] 81 mg PO DAILY 02/09/18 [Last Taken 02/15/18] Cholecalciferol Vit D3 [Vitamin D3 (*)] 4,000 units PO DAILY 02/09/18 [Last Taken 02/15/18] Escitalopram Oxalate [Lexapro 10 MG] 10 mg PO DAILY 02/09/18 [Last Taken ] Herbals/Supplements -Info Only 1 ea PO DAILY 02/09/18 [Last Taken 02/15/18] Tarceva 150 mg PO DAILY 02/09/18 [Last Taken 02/15/18] Nitroglycerin [Nitrostat 0.4 mg (*)] 0.4 mg SL Q5M PRN #20 btl 02/10/18 [Last Taken 02/14/18] amLODIPine BESYLATE [Norvasc 5 mg (*)] 5 mg PO DAILY #30 tab 02/10/18 [Last Taken 02/15/18] EPINEPHrine [Epipen 0.3 MG] 0.3 mg IM ONCE PRN 02/15/18 [Last Taken Unknown] Rosuvastatin Calcium [Crestor 20mg (*)] 20 mg PO DAILY 02/15/18 [Last Taken ] Enoxaparin [Lovenox 120 MG (*)] 120 mg SC DAILY@1900 #30 syr 02/22/18 [Last Taken Unknown] Isosorbide Mononitrate [Imdur 30 mg (*)] 30 mg PO DAILY #30 tab.sr 02/22/18 [ Last Taken Unknown] Discharge Medications: Refer to the Discharge Home Medication list for PRN reason. - Orders Services needed: Registered Nurse, Physical Therapy, Occupational Therapy, Speech Language Pathologist Isolation Type: Chemotherapy Isolation Diet Recommendation: no restrictions on diet - Follow Up Care Current Providers and Referrals: David Damian MD [Primary Care Provider] - As per Instructions Rodrigue Cisneros MD [Medical Doctor] - Edwin Ritchie MD [Medical Doctor] -
--- NOTE | 2018-02-22 17:29 | PDIAF ---
- Diagnosis Diagnosis: metastatic lung cancer, CVA, splenic infarct Code Status: Do Not Resuscitate - Medication Management Discharge Medications: Medications to Continue on Transfer Dutasteride 0.5 mg PO DAILY 09/14/16 [Last Taken 02/15/18] MIRTAZAPINE 15 mg PO HS 09/14/16 [Last Taken 02/14/18] Aspirin EC [Aspirin EC 81 mg (*)] 81 mg PO DAILY 02/09/18 [Last Taken 02/15/18] Cholecalciferol Vit D3 [Vitamin D3 (*)] 4,000 units PO DAILY 02/09/18 [Last Taken 02/15/18] Escitalopram Oxalate [Lexapro 10 MG] 10 mg PO DAILY 02/09/18 [Last Taken ] Herbals/Supplements -Info Only 1 ea PO DAILY 02/09/18 [Last Taken 02/15/18] Tarceva 150 mg PO DAILY 02/09/18 [Last Taken 02/15/18] Nitroglycerin [Nitrostat 0.4 mg (*)] 0.4 mg SL Q5M PRN #20 btl 02/10/18 [Last Taken 02/14/18] amLODIPine BESYLATE [Norvasc 5 mg (*)] 5 mg PO DAILY #30 tab 02/10/18 [Last Taken 02/15/18] EPINEPHrine [Epipen 0.3 MG] 0.3 mg IM ONCE PRN 02/15/18 [Last Taken Unknown] Rosuvastatin Calcium [Crestor 20mg (*)] 20 mg PO DAILY 02/15/18 [Last Taken ] Enoxaparin [Lovenox 120 MG (*)] 120 mg SC DAILY@1900 #30 syr 02/22/18 [Last Taken Unknown] Isosorbide Mononitrate [Imdur 30 mg (*)] 30 mg PO DAILY #30 tab.sr 02/22/18 [ Last Taken Unknown] Discharge Medications: Refer to the Discharge Home Medication list for PRN reason. - Orders Services needed: Registered Nurse, Physical Therapy, Occupational Therapy, Speech Language Pathologist Isolation Type: Chemotherapy Isolation Diet Recommendation: no restrictions on diet - Labs/Radiology CBC w/diff Date: 02/26/18 - Follow Up Care Current Providers and Referrals: Edwin Ritchie MD [Medical Doctor] - Rodrigue Cisneros MD [Medical Doctor] - David Damian MD [Primary Care Provider] - As per Instructions
[2018-02-22] MEDS: ENOXAPARIN 120 MG/0.8 ML SYR SC SCH (18:04)
[2018-02-22] MEDS: MIRTAZAPINE 15 MG TAB PO SCH (19:59)
[2018-02-23] MEDS ORDERED: SODIUM CL NASAL GEL 14.1 GM TUBE TP PRN (04:00)
[2018-02-23 08:09] VITALS: BP 126/71
[2018-02-23] MEDS: TARCEVA PO SCH (08:32)
[2018-02-23] MEDS: amLODIPine BESYLATE 5 MG TAB PO SCH (08:33)
[2018-02-23] MEDS: ASPIRIN EC 81 MG TAB PO SCH (08:33)
[2018-02-23] MEDS: DUTASTERIDE 0.5 MG CAP PO SCH (08:33)
[2018-02-23] MEDS: ESCITALOPRAM OXALATE 10 MG TAB PO SCH (08:33)
[2018-02-23] MEDS: ISOSORBIDE MONONITRATE 30 MG TAB.SR PO SCH (08:34)
[2018-02-23] MEDS: ROSUVASTATIN CALCIUM 20 MG TAB PO SCH (08:34)
[2018-02-23] MEDS: CHOLECALCIFEROL VIT D3 2,000 UNITS TAB/CAP PO SCH (08:34)
--- NOTE | 2018-02-23 09:10 | GDS ---
[f rep st] DISCHARGE SUMMARY DISCHARGE DIAGNOSES: 1. Acute cerebrovascular accident. 2. Splenic infarcts. 3. Pulmonary embolism. 4. Metastatic non-small cell lung cancer. 5. [id number] myocardial infarction. 6. Prinzmetal angina. 7. Dsfvj-eg-dolxrbi hypoxemic respiratory failure secondary to lung cancer and possible pneumonitis in the right lung field. 8. Right lung abnormality on CT scan, which will require followup imaging. 9. Acute kidney injury, improved. 10. Thrombocytopenia, stable. CONSULTANTS: 1. Dr. Travis Guadarrama, cardiology. 2. Dr. Asha Ruiz, Oncology. HISTORY: For details please see the history and physical dated February 15, 2018. In brief, the patient is a 73-year-old male with a history of metastatic non- small cell lung cancer, who presented to the emergency department with left- sided chest and abdominal pain. CT imaging in the emergency department was negative for pulmonary embolism, though his abdominal CT reveals splenic infarct. He was admitted to hospital for further management. HOSPITAL COURSE: The patient admitted to the Medical/Surgical unit. He was originally diagnosed with pulmonary embolism in August 2016, and had transitioned from Lovenox to Xarelto. It is unclear what the source of his splenic infarct is, though this maybe considered a Xarelto failure. He was monitored on telemetry and there was no evidence of atrial fibrillation. Due to mental status changes, he underwent brain MRI which revealed multiple small strokes suggesting a cardioembolic source. In addition, consideration is given to some of these lesions possibly being metastatic in nature. Neurology consult was obtained. Carotid artery Doppler study was negative for any flow- limiting carotid stenosis. There was no evidence of LV thrombus on an echocardiogram. He was treated with Aspirin and statin. Cardiology consultation was obtained. 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 The patient was restarted on Lovenox and it is recommended he continue Lovenox. The patient had recurrent episodes of chest pain. He previously underwent angiography which was negative for any flow-limiting coronary lesions. Ultimately his chest pain was deemed most likely to be coronary vasospasms and he was treated for Prinzmetal angina with nitrates and calcium channel blockers. Long-acting nitrates in the form of Imdur were added and his Norvasc was uptitrated to 5 mg daily. This seemed to keep his symptoms at bay and he should use p.r.n. nitroglycerin for recurrent symptoms. It is unclear if he has progression of his cancer, as it is possible that some of his brain lesions may be metastatic in nature. In addition, he has known bone metastases and has undergone radiation therapy to his pelvis. Some consideration was given to Tarceva causing a coronary vasospasm side effect. Per up to date, 2% of patients could have myocardial infarction on Tarceva. I discussed this with Oncology. Followup conversation with his primary oncologist , Dr. Cisneros in the outpatient setting to determine if he should continue on Tarceva. It seems at this point that his coronary vasospasms symptoms are managed. Thus, it is reasonable to continue his Tarceva if we can keep his symptoms under control. The patient also was found to have an abnormality on his chest CT in the right lung field. He had no infectious symptoms such as fever or cough to suggest pneumonia. The differential is a reticular nodular pneumonitis versus lymphangitic spread of the tumor. He should have a followup CT scan at the direction of his primary oncologist for further evaluation. He has required 2 L of oxygen by nasal cannula. This will be continued at discharge. He was evaluated by the therapy team and inpatient rehab was recommended. DISPOSITION: Patient is discharged to inpatient rehab on 2 L of oxygen in stable condition. FOLLOWUP: 1. Dr. Rodrigue Cisneros, Oncology. 2. PET scan, Monday, February 23 at [address] Edwin Ritchie, [facility]. 4. Dr. David Damian, Primary Care. 5. Platelet levels should be followed closely as his platelets have been running 90-100. If they were to drop significantly, consideration needs to be given to decreasing his Lovenox dose DISCHARGE MEDICATIONS: Please see [facility] completed outpatient medication list. New medications on discharge include: 1. Lovenox 120 mg subcutaneous daily, #30, no refills. 2. Imdur 30 mg p.o. daily #30, no refills. He will continue all other outpatient medications as previously prescribed includin. Mirtazapine 50 mg p.o. at bedtime. 2. Dutasteride 0.5 mg p.o. daily. 3. Tarceva 150 mg p.o. daily. 4. Lexapro 10 mg p.o. daily. 5. Aspirin 81 mg p.o. daily. 6. Amlodipine 5 mg p.o. daily. 7. Rosuvastatin 20 mg p.o. daily. 8. Nitroglycerin 0.4 mg sublingual q.5 minutes p.r.n. chest pain secondary to coronary vasospasms. 9. Vitamin D3. Discontinued medications: Xarelto was discontinued in favor of Lovenox. /[id number]/MODL MTDD
--- NOTE | 2018-02-23 14:08 | ASMTDCNOTE ---
Case Management Discharge Discharge Order Complete? Answers: Yes Patient to Obtain Answers: Other Notes: in patient rehab Medications Transportation Arranged Answers: Other Notes: [facility] transport w/c with O2 Transport will Pick (Date 02/23/2018 02:30 PM & Time) Faxed Final Orders Answers: Yes Agency/Facility Transfer Answers: Yes Report Printed & Faxed to Receiving Agency Discharge Comments Notes: 02/23/2018 Case Management Note Pt to d/c from hospital to [facility] for PET scan at 1300 with family. 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 Confirmed with Dianne Castellano that inpatient rehab is ready for pt today. Confirmed with Eric at [facility] transport that ride is arranged. Faxed d/c to [facility] No further case management needs identified. Date Signed: 02/23/2018 02:07 PM Electronically Signed By:Lisa Nj RN
--- NOTE | 2018-02-23 14:09 | ASDISCHSUM ---
Discharge Information Plan Status:Inpatient Rehab Medically Cleared to Leave:02/23/2018 Discharge Date:02/23/2018 12:41 PM D/C Disposition:[facility] IP ADT D/C Disposition:[facility] IP Projected Discharge Date:02/23/2018 11:00 AM Transportation at D/C: Discharge Delay Reason: Follow-Up Date:02/23/2018 11:00 AM Discharge Slot: Final Diagnosis: Placement Information Referral Type:*[facility]/SNF Referral ID:[facility]-[id number] Provider Name: Address 1: Phone Number: Address 2: Fax Number: [facility]: Selection Factors: State: Referral Type:Palliative Care Referral ID:[id number] Provider Name:[facility] Address 1:[address] Phone Number: Address 2: Fax Number: [facility]:[place] Selection Factors: State:[place] Patient Contact Information Contact Name:MARYURI Relationship:Son Address: Work Phone: [facility]:[place] Alternate Phone: [facility] Code:[place] Email: Financial Information Financial Class:Medicare Primary Plan Desc:MEDICARE INPATIENT Primary Plan Number:[id number] Secondary Plan Desc:[facility] Secondary Plan Number:[id number] Assessment Information LACE LACE Length of stay for Answers: 4-6 days current admission Acuity / Level of Answers: Yes Care: Did the patient have an inpatient admission? Comorbidities - select Answers: Any tumor (including all that apply lymphoma or leukemia) Other Notes: Hx of PE; First-degree heart block # of Emergency department Answers: 1-2 visits in the last 6 months Score: 11 Date Signed: 02/23/2018 02:07 PM Electronically Signed By:Lisa Nj RN [facility] CM Progress Note CM Note CM Note Notes: Pt's chart reviewed for D/C planning. Pt is a 73 y/o male with metastatic small lung cancer, status post palliative radiation to right pelvis and looks like humerus. He was admitted to 02/09 with chest pain and an NSTEMI. He underwent cardiac catheterization that did not show any obstructive lesions and normal EF. He went home from the hospital on Monday and returned on 03/17 due to not feeling well, fatigue and pressure in his left chest. 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 He lives independently and has a son in [place], [facility] [phone]. CM met with Pt. Pt stated he had some confusion and was very tired. He was unable to provide details re confusion. He states that he does have friends who help him and does not believe he requires other services. OT and PT evals have been ordered. When he was last D/C no CM needs were identified.CM will follow. D/C Planning: TBD Date Signed: 02/16/2018 01:04 PM Electronically Signed By:Jodie Gonsales [facility] CM Progress Note CM Note CM Note Notes: Pt becoming increasingly confused, dc plan uncertain. He is going for MRI, CM w/f. DC Plan: TBD Date Signed: 02/17/2018 04:33 PM Electronically Signed By:Mireya Poe RN [facility] CM Progress Note CM Note CM Note Notes: CM spoke with [employer]arel [employer] sales representative from [facility]. Pt told her that he wasn't sure whether he wanted to go there. CM then spoke with Pt's who had some concerns re [facility] and wanted to revisit [facility]. [facility] response to the referral indicated that they needed more information. CM both called Carol at [facility] and responded to the referral on [employer]. Waiting to hear back. D/C Plan: SNF Rehab Date Signed: 02/19/2018 02:27 PM Electronically Signed By:Jodie Gonsales [facility] CM Progress Note CM Note CM Note Notes: Pt had a palliative care mtg today. He is unclear what kind of care he may need when he is D/C'ed. Per chart review, physical therapy has ended due to his goals being met. They are recommending that he return home with 24 hour supervision. Occupational therapy is recommending home with 24 hour supervision or in-pt rehab. Both have concerns about his speech and have suggested speech therapy may be helpful. CM will follow. D/C Plan: TBD Date Signed: 02/19/2018 02:45 PM Electronically Signed By:Jodie Gonsales [facility] CM Progress Note CM Note CM Note Notes: Please disregard CM note written 02/19/18 at 4:27PM. It was written in error. Date Signed: 02/19/2018 03:21 PM Electronically Signed By:Jodie Gonsales [facility] CM Progress Note CM Note CM Note Notes: Pt's sons had D/C to [facility]; fuentes also recommending this. CM spoke to [facility] and was told [facility] Pt's qiyciyjf-hc-zlk and Pt were told this. Referrals were then made to [facility] and [facility]. CM to follow. D/C Plan: TBD Date Signed: 02/20/2018 02:33 PM Electronically Signed By:Jodie Gonsales [facility] CM Progress Note CM Note CM Note Notes: Patient will discharge tomorrow. He has a PET scan at [facility] at 1300. I was unable to make this any earlier, so the plan is that patient will be discharged from [facility] around midday, and his family will get him over to [facility]. After his PET scan, he will be transported to [facility]. I have arranged wheelchair van transport through [place] at 1430. Patient's son Jewel will arrange payment. I notified Dianne at [facility] of the plan, and she agreed. Case Management will make final arrangements tomorrow. Date Signed: 02/22/2018 02:36 PM Electronically Signed By:Zenaida Mcneil RN [facility] CM Progress Note CM Note CM Note Notes: Referral for outpatient palliative care services sent to [facility] per patient and son Jewel's request. Date Signed: 02/22/2018 03:52 PM Electronically Signed By:Zenaida Mcneil RN Case Management Discharge Plan Note Case Management Discharge Discharge Order Complete? Answers: Yes Patient to Obtain Answers: Other Notes: in patient rehab Medications Transportation Arranged Answers: Other Notes: [facility] transport w/c with O2 Transport will Pick (Date 02/23/2018 02:30 PM & Time) Faxed Final Orders Answers: Yes Agency/Facility Transfer Answers: Yes Report Printed & Faxed to Receiving Agency Discharge Comments Notes: 02/23/2018 Case Management Note Pt to d/c from hospital to [facility] for PET scan at 1300 with family. [facility] transport to garbage pick up worker pt at 14:30 from [facility] w/c with O2 and transport pt to inpatient rehab. Confirmed with Dianne Castellano that inpatient rehab is ready for pt today. Confirmed with Eric at [facility] that ride is arranged. Faxed d/c to [facility]. No further case management needs identified. Date Signed: 02/23/2018 02:07 PM Electronically Signed By:Lisa Nj RN Intervention Information Intervention Type:*Incorrect Registration Date of Service:02/16/2018 09:02 AM Patient Type:Inpatient Staff Member:ANITA Dozier, Tamra Hours: Discipline: Severity: Comment: Intervention Type:DONG-Not Delivered Date of Service:02/16/2018 01:15 PM Patient Type:Observation Staff Member:Michelle Barajas Hours: Discipline: Severity: Comment:Vnzaruos-oh-kcc states the patient was "out of it" due to medications. She asked that I leave a copy of the DONG form for the patients' son to review when he arrive s after 5pm. Intervention Type:*IM-Signed Date of Service:02/23/2018 10:15 AM Patient Type:Inpatient Staff Member:Michelle Barajas Hours: Discipline: Severity: Comment:
--- NOTE | 2018-02-27 08:57 | PQFORM ---
PHYSICIAN QUERY FORM Needs Your Response This query form is being sent to you to assure this patient record is coded properly. Please respond to the question below: DIRECTOR OF ONCOLOGY QUESTION: Dr. Moore, The patient had some mental status changes that worsened during the admission. The patient was found on MRI to have multiple small strokes suggesting cardioembolic source. Some consideration is given to some of these lesions being metastatic in nature. Can the altered mental status be further specified as: x___ 1. Encephalopathy due to acute stroke 2. Metabolic encephalopathy 3. Encephalopathy due to metastatic disease 4. Encephalopathy due to uncertain cause 5. Acute confusional state due to stroke 6. Other 7. Mental status changes cannot be further specified Thank you for clarifying, MIKEY Steward HIM Coding INSTRUCTIONS FOR RESPONSE: Answer question by clicking on the "Edit Document" button. Move cursor to area below the stars. When complete, hit "Save." Click on the "Sign" button, then click "Sign" again. Type in your PIN and hit "Enter." MTDD
== END 2018-02-23 12:41 | DRG 64 ==
LOC: INTOOBSV 16:39 → F3E 19:43 → OBSVTOIN 02-16 15:14 → F2N 02-17 21:46 → F1N 02-18 15:55 → F2W 02-19 18:26
PROVIDERS: ADMIT Internal Medicine; ATTEND Hospitalist
DX: I63.40 Cerebral infarction due to embolism of unspecified cerebral artery (principal); G93.49 Other encephalopathy; I74.8 Embolism and thrombosis of other arteries; I21.4 Non-ST elevation (NSTEMI) myocardial infarction; C34.12 Malignant neoplasm of upper lobe, left bronchus or lung; C79.51 Secondary malignant neoplasm of bone; I20.1 Angina pectoris with documented spasm; J96.21 Acute and chronic respiratory failure with hypoxia; N17.9 Acute kidney failure, unspecified; K57.30 Diverticulosis of large intestine without perforation or abscess without bleeding; G47.33 Obstructive sleep apnea (adult) (pediatric); D69.6 Thrombocytopenia, unspecified; R91.8 Other nonspecific abnormal finding of lung field; Z66 Do not resuscitate; Z79.01 Long term (current) use of anticoagulants; Z86.711 Personal history of pulmonary embolism
CPT/HCPCS: 82435-PO; 82565-PO; 82947-PO; 84132-PO; 84295-PO; 84484-PO; 84520-PO; 85014-PO; 92507-GN; 92523-GN; 97116-GP; 97161-GP; 97166-GO; 97530-GO; 97530-GP; 97535-GO; A9585; G0378; G8978-GP-CI; G8979-GP-CI; G8980-GP-CI; G8987-GO-CJ; G8988-GO-CI; G8988-GO-CJ; G8989-GO-CJ; G9168-GN-CK; G9169-GN-CI; J1650; J1940; J2270; Q9967

== ENCOUNTER 2018-02-23 12:00 | Inpatient (IN) | payer OTHER ==
[2018-02-23] MEDS ORDERED: EPINEPHrine KIT (USE FOR EPIPEN) 1 MG/ML IM ONE (16:45)
--- NOTE | 2018-02-23 17:10 | PDOREHIP ---
Admission [facility] - Admission - 3 Day Assessment Period Admission Date/Day 1: 02/23/18 Day 2: 02/24/18 Day 3: 02/25/18 - Active Diagnoses Comorbidities and Co-existing Conditions at Admission: [address]0722. None of the Above - Skin Conditions Unhealed Pressure Ulcer (1 or more/Stage 1 or >)-Admission: 0. No
--- NOTE | 2018-02-23 17:12 | GHP ---
[f rep st] HISTORY AND PHYSICAL POST ADMISSION PHYSICIAN EVALUATION AND REHABILITATION TREATMENT PLAN DATE OF ADMISSION: 02/23/2018 DATE OF EVALUATION: 02/23/2018 TIME OF EVALUATION: 1605 REFERRING FACILITY: [facility] REFERRING PHYSICIAN: Lisa Decker MD IMPAIRMENT GROUP: 1.9. DATE OF ONSET: 02/15/2018 CONSULTING PHYSICIANS: He was seen in consultation by oncologist Dr. Ruiz, bail attacher Dr. Guadarrama, and neurologist Dr. Caba. REHABILITATION DIAGNOSIS: Debility, status post cerebrovascular accident. ETIOLOGIC DIAGNOSIS: Other stroke. HISTORY OF PRESENT ILLNESS: This patient has metastatic small cell lung cancer with bony metastases which have been treated with radiation to the right pelvis and left humerus. He has been overall stable on erlotinib since September 2016. He was hospitalized on 02/09/2018, with chest pain and a ele-FY-vttmwetax myocardial infarction. Cardiac catheterization was done and he had no obstructive lesions. He had a normal ejection fraction. He returned home on and then returned to the hospital with fatigue and malaise. 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 He also has p.r.n. nitroglycerin. He had confusion during his hospitalization, which prompted a brain MRI. MRI was consistent with multifocal embolic CVA with some lesions that might be consistent with non-small cell lung cancer metastases. Prior to the MRI on the day of admission, he had a chest and abdominal CT. He was diagnosed with a splenic infarct. The splenic and brain lesions were likely considered to be cardioembolic with the speculation that he may have had arrhythmia possibly coincident with episodes of vasospasm. Alternately, he could have made emboli due to hypercoagulability from his cancer. He had been treated with rivaroxaban recently, which was changed from enoxaparin. Given that this may have been an anticoagulation failure on rivaroxaban, treatment with enoxaparin was resumed. He had hypoxemia, requiring oxygen. There was a chest CT done on the day of admission, which showed an existing tumor mass, as well as a right upper lobe pneumonitis with lymphangitic spread of tumor being in the differential diagnosis. On the day of hospital discharge, he had a PET scan which would shed more light on the question of lymphangitic spread of tumor in his lung, as well as the question of metastatic lesions in the brain. I do not have the results of the PET scan at present. He was participating in physical, occupational, and speech therapies, and was appropriate for inpatient rehabilitation. Other studies and labs in the hospital: He had persistent thrombocytopenia which stabilized with a jasmyn of 86 on 02/19/2018, and subsequent improvement on the day of hospital discharge. His platelet count is 105. He had an elevated white blood cell count, which was improving. Serum chemistries, most recently on 02/19/2018, showed a mildly elevated creatinine at 1.2 with an estimated GFR of 59. BUN was 24, mildly elevated, but possibly consistent with dehydration. Chloride was slightly high at 111. Otherwise renal function and electrolytes were within normal limits. A lipid panel was done which showed a total cholesterol of 120, an LDL of 60, and an HDL of 32. He was taking a statin at the time. He had a troponin leak with highest reading being 2.37. Liver function tests were normal. Brain natriuretic peptide was elevated at 646. Urinalysis showed trace ketones and 3+ blood, with 5-10 red blood cells, and otherwise was normal. Imaging was as described in HPI. There was a carotid Doppler done which did not show any embolic source. Transthoracic echo showed no evidence of LV thrombus and no congestive heart failure. He had concentric left ventricular hypertrophy. Ejection fraction was estimated at 61% . There was moderate aortic insufficiency with a sclerotic aortic valve. There was no xvyka-wf-veyg shift. Precautions: He is a fall risk. Active comorbidities: There are no tier 1, tier 2, or tier 3 active comorbidities. PAST MEDICAL HISTORY: 1. Non-small cell lung cancer. 2. Pulmonary embolus. 3. 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 4. Sleep apnea. 5. Benign prostatic hypertrophy. 6. History of palliative radiation to the right pelvis and left proximal humerus. MEDICATIONS: Pre-hospital: 1. Dutasteride 0.5 mg p.o. daily. 2. Mirtazapine 15 mg p.o. at bedtime. 3. Aspirin 81 mg p.o. daily. 4. Cholecalciferol 4000 units p.o. daily. 5. Escitalopram 10 mg p.o. daily. 6. Erlotinib 150 mg p.o. daily. 7. Nitroglycerin 0.5 mg sublingual q.5 minutes p.r.n. 8. Amlodipine 5 mg p.o. daily. 9. Epinephrine EpiPen 0.3 mg IM p.r.n. allergic reaction. 10. Rivaroxaban 20 mg p.o. daily. 11. Rosuvastatin 20 mg p.o. daily. Admission: 1. Amlodipine 5 mg p.o. daily. 2. Aspirin 81 mg p.o. daily. 3. Cholecalciferol 4000 units p.o. daily. 4. Dutasteride 0.5 mg p.o. daily. 5. Enoxaparin 120 mg subcutaneous daily at 1900. 6. Escitalopram 10 mg p.o. daily. 7. Isosorbide mononitrate 30 mg p.o. daily. 8. EpiPen 0.3 mg IM once p.r.n. allergic reaction. 9. Mirtazapine 15 mg p.o. at bedtime. 10. Erlotinib 150 mg p.o. daily. /[id number]/MODL MEDICATIONS: 1. Nitroglycerin 0.4 mg sublingual q.5 minutes p.r.n. 2. Rosuvastatin 20 mg p.o. daily. ALLERGIES: He is allergic to sulfonamide antibiotics. PSYCHOSOCIAL HISTORY: He is a . He lives alone in a home in [place]. There are stairs in the home, but he also has stair lifts installed. He has 1 son who lives in [place] and another son who is currently visiting from [facility]. He is a nonsmoker and uses occasional alcohol. 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 FAMILY HISTORY: There is a family history of lung cancer among smokers. REVIEW OF SYSTEMS: He reports he still has some confusion and his balance is off. He denies vision changes. He denies difficulty swallowing. He denies weakness, numbness, or tingling of the extremities. He denies sensory loss. He has a good appetite. He thinks he has lost weight since he had cancer, but not acutely. He denies nausea, vomiting, constipation, or diarrhea. He denies dysuria or urinary frequency. He denies joint pain or joint swelling. He is aware of his need for oxygen, but does not feel that he has acute dyspnea. He has an occasional cough which brings up mucus. He had an episode of chest pain today when he went to the oncology office and had a PET scan done that resolved without nitroglycerin. Otherwise, a 10-point review of systems is negative. PHYSICAL EXAMINATION: VITAL SIGNS: Not yet available in the chart. This morning in the hospital, his blood pressure was 126/71, his heart rate was 67, respiratory rate was 12, oxygen saturation was 92% on 2.5 L by nasal cannula, temperature was 36.8 degrees Centigrade. His weight was 77.1 kg for a body mass index of 25.8. GENERAL: This is a well-nourished, well-developed man sitting in a wheelchair, dressed in street clothes, cooperative, and in no acute distress. HEENT: Extraocular movements are intact. Pupils are equal, round, reactive to light. Mucous membranes are moist. Dentition is in good condition. He has an uncrowded airway, Mallampati class 2. NECK: Supple. HEART: There is regular rate and rhythm with no murmurs, rubs, or gallops. LUNGS: Clear to auscultation bilaterally. ABDOMEN: Soft, nontender, nondistended with normoactive bowel sounds and no hepatosplenomegaly. There was no left upper quadrant tenderness. EXTREMITIES: There is no cyanosis, clubbing, or edema. Radial and dorsalis pedis pulses are 2+ bilaterally. NEUROLOGIC: He is alert and oriented to the month and year. He is off by 1 on the date identifying it is 02/22/2018. There is no focal weakness. Sensation is intact to light touch. Deep tendon reflexes are 2+ bilaterally at the biceps , patella, and Achilles tendons. There is no pronator drift. Rapid alternating movements are intact on the right upper extremity and mildly ataxic on the left upper extremity. CURRENT LEVEL OF FUNCTION: Per the preadmission screen. Regarding diet, feeding, and swallowing, he was on a regular diet. Grooming required setup and standby assist. He needed assist with bathing. Upper extremity dressing was done with standby assist. He needed assist for toileting. Bed mobility required standby assist. Transfers required contact guard assist. Used a 4- wheeled walker. Balance required contact guard assist. Endurance was fair. He ambulated 200 feet with standby assist. Regarding communication, he was noted to need assistance. Regarding cognition, he was noted to have decreased problem solving, safety awareness, memory, and difficulty following directions. He was considered to have anmxshpn-ck-nxxnmo cognitive and communication deficits. He was considered a fall risk, and confusion was also a safety precaution. He needed cues for pathfinding and for left-sided attention. IMPRESSION: This is a 73-year-old man with non-small cell lung cancer who had a recent transition from enoxaparin for anticoagulation for a history of pulmonary embolus, to rivaroxaban, and subsequently developed fatigue, malaise and left upper quadrant abdominal pain as well as chest tightness. 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 While he was in the hospital, he had an increased confusion and mental status change. Brain MRI showed multiple embolic lesions with some lesions potentially consistent with metastatic disease. He has had hypoxia and has what appears to be a right upper lobe pneumonitis versus lymphangitic spread of cancer. He does not have a new pulmonary embolus. Regarding chest pain, he has a diagnosis of Prinzmetal angina for which he has been treated with amlodipine, isosorbide mononitrate, and p.r.n. nitroglycerin. An episode of chest pain happened this afternoon which resolved without nitroglycerin. He is appropriate for inpatient rehabilitation to address deficits in mobility, activities of daily living, and cognition/communication. His goal is to complete a rehabilitation stay and return home with home health care. He may have some assistance from his local son as well. For a safe discharge, it is expected that he will achieve standby assist to modified independence with mobility, ADLs, and cognition. He will be able to manage his medications. There will be medication education for he and his family, and he will have home health and any other services needed for him to have a safe return home. He will have therapy with physical therapy, occupational therapy, and speech and language pathology for 60 minutes per day for each discipline on 5-7 days of the week. His expected duration of stay is 10-14 days. It is anticipated that upon discharge he will continue to benefit from outpatient therapy including OT, INTERIOR DESIGN PROGRAM CHAIR, and PT. PLAN: 1. 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 PT and OT with the goal of achieving standby assist to modified independence with mobility and activities of daily living. 2. Cognitive impairment status post CVA to be assessed and treated by Speech and Language Pathology. 3. Hypoxia. Continue oxygen. Unclear whether this is a pneumonitis versus lymphangitic spread of his lung cancer. The results of the PET scan that happened today should be enlightening in this regard. Continue oxygen and will have incentive spirometry. 4. Prinzmetal angina. Continue amlodipine, isosorbide mononitrate, aspirin, and p.r.n. nitroglycerin. Rosuvastatin was also started for this indication. 5. Depression versus anxiety. Continue escitalopram, as well as mirtazapine. 6. Non-small cell lung cancer. Await results of PET scan. Continue erlotinib. 7. Prophylaxis. There is no need for additional prophylaxis beyond the enoxaparin and aspirin that he is receiving regarding risk for thrombosis. There is no history of stomach ulcers, and he has been on anticoagulation for a prolonged period of time. We will not initiate GI prophylaxis. 8. Follow up. He will follow up with oncologist Dr. Rodrigue Cisneros, bail attacher Dr. Edwin Ritchie, and primary care provider, Dr. David Damian after his discharge from inpatient rehabilitation. /[id number]/MODL and [id number]/MODL MTDD
[2018-02-23] MEDS ORDERED: EPINEPHrine KIT (USE FOR EPIPEN) 1 MG/ML IM PRN (17:24)
--- NOTE | 2018-02-23 18:38 | GHP ---
MEDICATIONS: 1. Nitroglycerin 0.4 mg sublingual q.5 minutes p.r.n. 2. Rosuvastatin 20 mg p.o. daily. ALLERGIES: He is allergic to sulfonamide antibiotics. PSYCHOSOCIAL HISTORY: He is a . He lives alone in a home in [place]. There are stairs in the home, but he also has stair lifts installed. He has 1 son who lives in [place] and another son who is currently visiting from [place]. He is a nonsmoker and uses occasional alcohol. 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 FAMILY HISTORY: There is a family history of lung cancer among smokers. REVIEW OF SYSTEMS: He reports he still has some confusion and his balance is off. He denies vision changes. He denies difficulty swallowing. He denies weakness, numbness, or tingling of the extremities. He denies sensory loss. He has a good appetite. He thinks he has lost weight since he had cancer, but not acutely. He denies nausea, vomiting, constipation, or diarrhea. He denies dysuria or urinary frequency. He denies joint pain or joint swelling. He is aware of his need for oxygen, but does not feel that he has acute dyspnea. He has an occasional cough which brings up mucus. He had an episode of chest pain today when he went to the oncology office and had a PET scan done that resolved without nitroglycerin. Otherwise, a 10-point review of systems is negative. PHYSICAL EXAMINATION: VITAL SIGNS: Not yet available in the chart. This morning in the hospital, his blood pressure was 126/71, his heart rate was 67, respiratory rate was 12, oxygen saturation was 92% on 2.5 L by nasal cannula, temperature was 36.8 degrees Centigrade. His weight was 77.1 kg for a body mass index of 25.8. GENERAL: This is a well-nourished, well-developed man sitting in a wheelchair, dressed in street clothes, cooperative, and in no acute distress. HEENT: Extraocular movements are intact. Pupils are equal, round, reactive to light. Mucous membranes are moist. Dentition is in good condition. He has an uncrowded airway, Mallampati class 2. NECK: Supple. HEART: There is regular rate and rhythm with no murmurs, rubs, or gallops. LUNGS: Clear to auscultation bilaterally. ABDOMEN: Soft, nontender, nondistended with normoactive bowel sounds and no hepatosplenomegaly. There was no left upper quadrant tenderness. EXTREMITIES: There is no cyanosis, clubbing, or edema. Radial and dorsalis pedis pulses are 2+ bilaterally. NEUROLOGIC: He is alert and oriented to the month and year. He is off by 1 on the date identifying it is 02/22/2018. There is no focal weakness. Sensation is intact to light touch. Deep tendon reflexes are 2+ bilaterally at the biceps , patella, and Achilles tendons. There is no pronator drift. Rapid alternating movements are intact on the right upper extremity and mildly ataxic on the left upper extremity. CURRENT LEVEL OF FUNCTION: Per the preadmission screen. Regarding diet, feeding, and swallowing, he was on a regular diet. Grooming required setup and standby assist. He needed assist with bathing. Upper extremity dressing was done with standby assist. He needed assist for toileting. Bed mobility required standby assist. Transfers required contact guard assist. Used a 4- wheeled walker. Balance required contact guard assist. Endurance was fair. He ambulated 200 feet with standby assist. Regarding communication, he was noted to need assistance. Regarding cognition, he was noted to have decreased problem solving, safety awareness, memory, and difficulty following directions. He was considered to have [id number] cognitive and communication deficits. He was considered a fall risk, and confusion was also a safety precaution. He needed cues for pathfinding and for left-sided attention. IMPRESSION: This is a 73-year-old man with non-small cell lung cancer who had a recent transition from enoxaparin for anticoagulation for a history of pulmonary embolus, to rivaroxaban, and subsequently developed fatigue, malaise and left upper quadrant abdominal pain as well as chest tightness. 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 While he was in the hospital, he had an increased confusion and mental status change. Brain MRI showed multiple embolic lesions with some lesions potentially consistent with metastatic disease. He has had hypoxia and has what appears to be a right upper lobe pneumonitis versus lymphangitic spread of cancer. He does not have a new pulmonary embolus. Regarding chest pain, he has a diagnosis of Prinzmetal angina for which he has been treated with amlodipine, isosorbide mononitrate, and p.r.n. nitroglycerin. An episode of chest pain happened this afternoon which resolved without nitroglycerin. He is appropriate for inpatient rehabilitation to address deficits in mobility, activities of daily living, and cognition/communication. His goal is to complete a rehabilitation stay and return home with home health care. He may have some assistance from his local son as well. For a safe discharge, it is expected that he will achieve standby assist to modified independence with mobility, ADLs, and cognition. He will be able to manage his medications. There will be medication education for he and his family, and he will have home health and any other services needed for him to have a safe return home. He will have therapy with physical therapy, occupational therapy, and speech and language pathology for 60 minutes per day for each discipline on 5-7 days of the week. His expected duration of stay is 10-14 days. It is anticipated that upon discharge he will continue to benefit from outpatient therapy including OT, AUTO WASH BUFFER, and PT. PLAN: 1. 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 PT and OT with the goal of achieving standby assist to modified independence with mobility and activities of daily living. 2. Cognitive impairment status post CVA to be assessed and treated by Speech and Language Pathology. 3. Hypoxia. Continue oxygen. Unclear whether this is a pneumonitis versus lymphangitic spread of his lung cancer. The results of the PET scan that happened today should be enlightening in this regard. Continue oxygen and will have incentive spirometry. 4. Prinzmetal angina. Continue amlodipine, isosorbide mononitrate, aspirin, and p.r.n. nitroglycerin. Rosuvastatin was also started for this indication. 5. Depression versus anxiety. Continue escitalopram, as well as mirtazapine. 6. Non-small cell lung cancer. Await results of PET scan. Continue erlotinib. 7. Prophylaxis. There is no need for additional prophylaxis beyond the enoxaparin and aspirin that he is receiving regarding risk for thrombosis. There is no history of stomach ulcers, and he has been on anticoagulation for a prolonged period of time. We will not initiate GI prophylaxis. 8. Follow up. He will follow up with oncologist Dr. Rodrigue Cisneros, pole truck driver Dr. Edwin Ritchie, and primary care provider, Dr. David Damian after his discharge from inpatient rehabilitation. /[id number]/MODL MTDD
[2018-02-23] MEDS: ENOXAPARIN 120 MG/0.8 ML SYR SC SCH (20:15)
[2018-02-23] MEDS: MIRTAZAPINE 15 MG TAB PO SCH (22:43)
[2018-02-24] MEDS: CHOLECALCIFEROL VIT D3 1,000 UNITS TAB PO SCH (08:36)
[2018-02-24] MEDS: amLODIPine BESYLATE 5 MG TAB PO SCH (08:36)
[2018-02-24] MEDS: ESCITALOPRAM OXALATE 10 MG TAB PO SCH (08:37)
[2018-02-24] MEDS: ROSUVASTATIN CALCIUM 20 MG TAB PO SCH (08:37)
[2018-02-24] MEDS: TARCEVA PO SCH (08:37)
[2018-02-24] MEDS: SODIUM CL NASAL GEL 14.1 GM TUBE TP PRN (08:45)
[2018-02-24] MEDS ORDERED: Herbals/Supplements -Info Only PO SCH (09:00)
[2018-02-24 10:07] LABS: PLATELET COUNT 120 10^3/uL (150-400)
[2018-02-24] MEDS: ASPIRIN EC 81 MG TAB PO SCH (11:10)
--- NOTE | 2018-02-24 11:12 | SOAPPROG ---
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 * PT and OT with the goal of achieving standby assist to modified independence with mobility and activities of daily living. Cognitive impairment status post CVA to be assessed and treated by Speech and Language Pathology. Hypoxia. Continue oxygen. Unclear whether this is a pneumonitis versus lymphangitic spread of his lung cancer. The results of the PET scan that happened today should be enlightening in this regard; will try to obtain the report on Monday02/26/2018. Continue oxygen and will have incentive spirometry. Prinzmetal angina. Continue amlodipine, isosorbide mononitrate, aspirin, and p.r.n. nitroglycerin. Rosuvastatin was also started for this indication. Cancer hypercoagulability. Considered to have possibly had breakthrough thrombosis and emboli while on rivaroxaban, resumed prior therapy with enoxaparin. Also on aspirin. * Hematochezia reported per nurse. No anemia on CBC. Platelet count improving on CBC 02/24/2018. Needs to continue full anticoagulation. * Discussed with Dr. Hicks, 02/24/2018. Probably okay to discontinue aspirin due to hematochezia. * Will hold aspirin x2 days and discuss further with primary oncologist on 02/26/2018. Depression versus anxiety. Continue escitalopram, as well as mirtazapine. Non-small cell lung cancer. Await results of PET scan. Continue erlotinib. Prophylaxis. There is no need for additional prophylaxis beyond the enoxaparin and aspirin that he is receiving regarding risk for thrombosis. There is no history of stomach ulcers, and he has been on anticoagulation for a prolonged period of time. We will not initiate GI prophylaxis. Follow up. He will follow up with oncologist Dr. Rodrigue Cisneros, load dropper Dr. Edwin Ritchie, and primary care provider, Dr. David Damian after his discharge from inpatient rehabilitation. 02/24/18 12:16 Subjective: Has fatigue. Thinks his sleep was intermittent. Says he is not much use his CPAP for several weeks in 2 months. Occasional cough, no dyspnea. No fevers or chills. Objective: Vital Signs Temp Pulse Resp BP Pulse Ox 36.8 C 68 16 149/83 H 95 02/24/18 05:48 02/24/18 05:48 02/24/18 05:48 02/24/18 08:36 02/24/18 05:48 Laboratory Results 02/24/18 06:00 02/24/18 06:00 02/23/18 02/24/18 02/25/18 05:59 05:59 05:59 Intake Total 400 200 Output Total 200 Balance 400 0 Physical Exam - Physical Exam General Appearance: WD/WN, alert, no apparent distress Respiratory: normal breath sounds, crackles (Left lower lobe), No rhonchi, No wheezing Cardiac/Chest: regular rate, rhythm, No edema, No diastolic murmur, No systolic murmur Skin: normal color, warm/dry Neuro/Psych: alert, normal mood/affect ICD10 Worksheet Patient Problems: Problems Problem Status Onset Acute coronary syndrome Acute Carcinoma, lung Acute Infarction of spleen Acute Pneumothorax after biopsy Acute Pulmonary embolism Acute
[2018-02-24] MEDS: ISOSORBIDE MONONITRATE 30 MG TAB.SR PO SCH (12:20)
[2018-02-24] MEDS: DUTASTERIDE 0.5 MG CAP PO SCH (14:04)
[2018-02-24] MEDS: ENOXAPARIN 120 MG/0.8 ML SYR SC SCH (19:18)
[2018-02-24] MEDS ORDERED: ACETAMINOPHEN 325 MG TAB ONE (19:51)
[2018-02-24] MEDS ORDERED: ACETAMINOPHEN 325 MG TAB PO PRN (19:59)
[2018-02-24] MEDS ORDERED: MAG HYDROX/AL HYDROX/SIMETH 30 ML UDCUP PO PRN (20:00)
[2018-02-24] MEDS: MIRTAZAPINE 15 MG TAB PO SCH (20:20)
[2018-02-25] MEDS: ASPIRIN EC 81 MG TAB PO SCH (07:18)
[2018-02-25 08:17] LABS: PLATELET COUNT 122 10^3/uL (150-400)
[2018-02-25] MEDS: CHOLECALCIFEROL VIT D3 1,000 UNITS TAB PO SCH (09:34)
[2018-02-25] MEDS: ROSUVASTATIN CALCIUM 20 MG TAB PO SCH (09:34)
[2018-02-25] MEDS: amLODIPine BESYLATE 5 MG TAB PO SCH (09:35)
[2018-02-25] MEDS: ESCITALOPRAM OXALATE 10 MG TAB PO SCH (09:35)
[2018-02-25] MEDS: ISOSORBIDE MONONITRATE 30 MG TAB.SR PO SCH (09:36)
[2018-02-25] MEDS: TARCEVA PO SCH (09:37)
[2018-02-25] MEDS: DUTASTERIDE 0.5 MG CAP PO SCH (09:37)
[2018-02-25] MEDS ORDERED: SODIUM CL NASAL 45 ML BTL EACHNARE PRN (11:32)
[2018-02-25] MEDS ORDERED: ALBUTEROL 60 PUFFS/8 GM MDI IH PRN (13:01)
--- NOTE | 2018-02-25 13:01 | SOAPPROG ---
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 * PT and OT with the goal of achieving standby assist to modified independence with mobility and activities of daily living. Cognitive impairment status post CVA, and mild receptive aphasia. * Continue Speech and Language Pathology. Hypoxia. Continue oxygen. Unclear whether this is a pneumonitis versus lymphangitic spread of his lung cancer. The results of the PET scan that happened today should be enlightening in this regard; will try to obtain the report on Monday02/26/2018. Continue oxygen and will have incentive spirometry. * Trial of albuterol metered dose inhaler if he has symptoms of chest tightness. Prinzmetal angina. Continue amlodipine, isosorbide mononitrate, aspirin, and p.r.n. nitroglycerin. Rosuvastatin was also started for this indication. Cancer hypercoagulability. Considered to have possibly had breakthrough thrombosis and emboli while on rivaroxaban, resumed prior therapy with enoxaparin. Also on aspirin. * Hematochezia reported per nurse. No anemia on CBC. Platelet count improving on CBC 02/24/2018. Needs to continue full anticoagulation. * Discussed with Dr. Hicks, 02/24/2018. Probably okay to discontinue aspirin due to hematochezia. * Will hold aspirin x2 days and discuss further with primary oncologist on 02/26/2018. Depression versus anxiety. Continue escitalopram, as well as mirtazapine. Non-small cell lung cancer. Await results of PET scan. Continue erlotinib. Prophylaxis. There is no need for additional prophylaxis beyond the enoxaparin and aspirin that he is receiving regarding risk for thrombosis. There is no history of stomach ulcers, and he has been on anticoagulation for a prolonged period of time. We will not initiate GI prophylaxis. Follow up. He will follow up with oncologist Dr. Rodrigue Cisneros, personnel manager Dr. Edwin Ritchie, and primary care provider, Dr. David Damian after his discharge from inpatient rehabilitation. 02/25/18 12:58 Subjective: Had an episode of chest tightness this morning. He was at rest; did not happen during ambulation with physical therapy. His chest pains in the hospital were considerably worse. This was diffuse across his anterior chest and not located in the left sternal border. He did not have associated diaphoresis or left arm or jaw pain. He denies reflux symptoms. He did not notice dyspnea though he was requiring more oxygen. Otherwise without complaint. Objective: Vital Signs Temp Pulse Resp BP Pulse Ox 36.7 C 67 14 131/80 H 92 02/25/18 07:37 02/25/18 07:37 02/25/18 07:37 02/25/18 09:36 02/25/18 07:37 Laboratory Results 02/25/18 06:50 02/24/18 06:00 02/24/18 02/25/18 02/26/18 05:59 05:59 05:59 Intake Total 400 820 356 Output Total 1000 Balance 400 -180 356 Physical Exam - Physical Exam General Appearance: WD/WN, alert, no apparent distress Respiratory: normal breath sounds, crackles (Few, left lower lobe), No rhonchi, No wheezing Cardiac/Chest: regular rate, rhythm, No edema, No JVD, No diastolic murmur, No systolic murmur Skin: normal color, warm/dry Neuro/Psych: alert, normal mood/affect, oriented x 3, No abnormal gait ( Observed ambulating in the zhao with physical therapy, standby assist, no device.) ICD10 Worksheet Patient Problems: Problems Problem Status Onset Acute coronary syndrome Acute Carcinoma, lung Acute Infarction of spleen Acute Pneumothorax after biopsy Acute Pulmonary embolism Acute
[2018-02-25] MEDS: NITROGLYCERIN 0.4 MG BTL SL PRN (15:07)
[2018-02-25] MEDS: MIRTAZAPINE 15 MG TAB PO SCH (20:14)
[2018-02-25] MEDS: ENOXAPARIN 120 MG/0.8 ML SYR SC SCH (20:14)
[2018-02-26] MEDS: SODIUM CL NASAL GEL 14.1 GM TUBE TP PRN (00:39)
[2018-02-26] MEDS: amLODIPine BESYLATE 5 MG TAB PO SCH (09:08)
[2018-02-26] MEDS: ROSUVASTATIN CALCIUM 20 MG TAB PO SCH (09:09)
[2018-02-26] MEDS: DUTASTERIDE 0.5 MG CAP PO SCH (09:09)
[2018-02-26] MEDS: ESCITALOPRAM OXALATE 10 MG TAB PO SCH (09:09)
[2018-02-26] MEDS: ISOSORBIDE MONONITRATE 30 MG TAB.SR PO SCH (09:09)
[2018-02-26] MEDS: CHOLECALCIFEROL VIT D3 1,000 UNITS TAB PO SCH (09:10)
[2018-02-26] MEDS: TARCEVA PO SCH (09:10)
--- NOTE | 2018-02-26 09:54 | SOAPPROG ---
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 * As of 02/25/2018, he is standby assist for bed mobility and transfers. Ambulated 150 ft with no device, standby assist. Climbed and descended 8 steps. Dressing with setup and standby assist. Toilet and bath transfer with contact guard assist. * Continue PT and OT with the goal of achieving standby assist to modified independence with mobility and activities of daily living. Cognitive impairment status post CVA, and mild receptive aphasia. * Continue Speech and Language Pathology. Hypoxia. PET scan shows right upper lobe pneumonitis consistent with possible congestive heart failure; not consistent with lymphangitic spread of cancer. Continue oxygen and will have incentive spirometry. * Discussed with lab 02/26/2018. Will add on BNP to sample from 02/24/2018. He does not clinically appear to be in CHF. He had mild LVH, normal ejection fraction, no diastolic dysfunction, and mild to moderate aortic regurgitation on echocardiogram 02/15/2018. * Trial of albuterol metered dose inhaler if he has symptoms of chest tightness. Prinzmetal angina. Continue amlodipine, isosorbide mononitrate, aspirin, and p.r.n. nitroglycerin. Rosuvastatin was also started for this indication. * Responded to nitroglycerin 02/25/2018. Cancer hypercoagulability. Considered to have possibly had breakthrough thrombosis and emboli while on rivaroxaban, resumed prior therapy with enoxaparin. Also on aspirin. * Hematochezia reported per nurse. No anemia on CBC. Platelet count improving on CBC 02/24/2018. Needs to continue full anticoagulation.nly stop aspirin for life-threatening bleed. 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 Continue full anticoagulation. Depression versus anxiety. Continue escitalopram, as well as mirtazapine. Non-small cell lung cancer. Continue erlotinib. Await outcome of oncology consult. Prophylaxis. There is no need for additional prophylaxis beyond the enoxaparin and aspirin that he is receiving regarding risk for thrombosis. He requires both enoxaparin and aspirin due to embolic phenomena while he was on rivaroxaban. There is no history of stomach ulcers, and he has been on anticoagulation for a prolonged period of time. We will not initiate GI prophylaxis. Follow up. He will follow up with oncologist Dr. Rodrigue Cisneros on 02/28/2018. He will see airborne electronics analyst Dr. Edwin Ritchie, and primary care provider, Dr. David Damian after his discharge from inpatient rehabilitation. 02/26/18 15:51 Subjective: Reports he was restless last night but also says that he got adequate sleep. Episode of chest pain yesterday resolved with nitroglycerin. No pain since then. Occasional cough, nonproductive, no dyspnea. Objective: Vital Signs Temp Pulse Resp BP Pulse Ox 36.7 C 71 18 130/67 H 95 02/26/18 07:11 02/26/18 07:11 02/26/18 07:11 02/26/18 09:09 02/26/18 07:11 Laboratory Results 02/25/18 06:50 02/24/18 06:00 02/25/18 02/26/18 02/27/18 05:59 05:59 05:59 Intake Total 820 1256 120 Output Total 1000 500 Balance -180 756 120 Physical Exam - Physical Exam General Appearance: WD/WN, alert, no apparent distress Respiratory: normal breath sounds, other (Bronchial breath sounds right lower lobe), No crackles, No rhonchi, No wheezing Cardiac/Chest: regular rate, rhythm, No edema, No JVD, No diastolic murmur, No systolic murmur Skin: normal color, warm/dry Neuro/Psych: alert, normal mood/affect, oriented x 3 ICD10 Worksheet Patient Problems: Problems Problem Status Onset Acute coronary syndrome Acute Carcinoma, lung Acute Infarction of spleen Acute Pneumothorax after biopsy Acute Pulmonary embolism Acute
[2018-02-26] MEDS: ASPIRIN EC 81 MG TAB PO SCH (11:29)
[2018-02-26] MEDS: PANTOPRAZOLE SODIUM 40 MG TAB PO SCH (18:16)
[2018-02-26] MEDS: ENOXAPARIN 120 MG/0.8 ML SYR SC SCH (18:16)
[2018-02-26] MEDS: MIRTAZAPINE 15 MG TAB PO SCH (20:51)
[2018-02-27] MEDS: TARCEVA PO SCH (07:30)
[2018-02-27] MEDS: PANTOPRAZOLE SODIUM 40 MG TAB PO SCH (07:31)
[2018-02-27] MEDS: CHOLECALCIFEROL VIT D3 1,000 UNITS TAB PO SCH (07:31)
[2018-02-27] MEDS: ASPIRIN EC 81 MG TAB PO SCH (07:31)
[2018-02-27] MEDS: ISOSORBIDE MONONITRATE 30 MG TAB.SR PO SCH (07:32)
[2018-02-27] MEDS: ESCITALOPRAM OXALATE 10 MG TAB PO SCH (07:32)
[2018-02-27] MEDS: ROSUVASTATIN CALCIUM 20 MG TAB PO SCH (07:32)
[2018-02-27] MEDS: DUTASTERIDE 0.5 MG CAP PO SCH (07:32)
[2018-02-27] MEDS: amLODIPine BESYLATE 5 MG TAB PO SCH (07:35)
[2018-02-27] MEDS: NITROGLYCERIN 0.4 MG BTL SL PRN (11:31)
[2018-02-27] MEDS: predniSONE 20 MG TAB PO SCH (11:47)
--- NOTE | 2018-02-27 12:07 | SOAPPROG ---
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 * As of 02/25/2018, he is standby assist for bed mobility and transfers. Ambulated 150 ft with no device, standby assist. Climbed and descended 8 steps. Dressing with setup and standby assist. Toilet and bath transfer with contact guard assist. * Continue PT and OT with the goal of achieving standby assist to modified independence with mobility and activities of daily living. * PET scan was unrevealing regarding brain lesions. Cognitive impairment status post CVA, and mild receptive aphasia. * Continue Speech and Language Pathology. Hypoxia. PET scan shows right upper lobe pneumonitis consistent with possible congestive heart failure; not consistent with lymphangitic spread of cancer. Continue oxygen and will have incentive spirometry. * BNP added-on sample from 02/24/2018 not consistnet with CHF. He does not clinically appear to be in CHF. He had mild LVH, normal ejection fraction, no diastolic dysfunction, and mild to moderate aortic regurgitation on echocardiogram 02/15/2018. * Trial of albuterol metered dose inhaler if he has symptoms of chest tightness. * Trial of prednisone 20 mg p.o. Q.day, ordered per Oncology. Prinzmetal angina. Continue amlodipine, isosorbide mononitrate, aspirin, and p.r.n. nitroglycerin. Rosuvastatin was also started for this indication. * Responded to nitroglycerin 02/25/2018. Cancer hypercoagulability. Considered to have possibly had breakthrough thrombosis and emboli while on rivaroxaban, resumed prior therapy with enoxaparin. Also on aspirin. * Hematochezia reported per nurse. No anemia on CBC. Platelet count improving on CBC 02/24/2018. Needs to continue full anticoagulation. only stop aspirin for life-threatening bleed. 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 Continue full anticoagulation. Depression versus anxiety. Continue escitalopram, as well as mirtazapine. Non-small cell lung cancer. Continue erlotinib. Await outcome of oncology consult. Prophylaxis. There is no need for additional prophylaxis beyond the enoxaparin and aspirin that he is receiving regarding risk for thrombosis. He requires both enoxaparin and aspirin due to embolic phenomena while he was on rivaroxaban. There is no history of stomach ulcers, and he has been on anticoagulation for a prolonged period of time. We will not initiate GI prophylaxis. Follow up. Oncologist Dr. Rodrigue Cisneros on 02/28/2018, gastroenterology nurse Dr. Edwin Ritchie, and primary care provider, Dr. David Damian after his discharge from inpatient rehabilitation. 02/27/18 12:07 Subjective: Went to the Oncology Clinic and saw Dr. Cisneros this morning. Had an episode of chest discomfort and chest tightness after he returned, which resolved without medication. Otherwise without complaints. No fevers or chills, not in pain. Objective: Vital Signs Temp Pulse Resp BP Pulse Ox 37.0 C 72 20 121/70 H 90 L 02/27/18 07:30 02/27/18 11:32 02/27/18 11:32 02/27/18 11:32 02/27/18 11:32 Laboratory Results 02/25/18 06:50 02/24/18 06:00 02/26/18 02/27/18 02/28/18 05:59 05:59 05:59 Intake Total 1256 360 Output Total 500 450 Balance 756 -90 Physical Exam - Physical Exam General Appearance: WD/WN, alert, no apparent distress Respiratory: normal breath sounds, decreased breath sounds (Right upper lobe), No crackles, No rhonchi, No wheezing Cardiac/Chest: regular rate, rhythm, No edema, No diastolic murmur, No systolic murmur Skin: normal color, warm/dry Neuro/Psych: alert, normal mood/affect, oriented x 3, other (Takes some repetition to fully understand the content of the conversation) ICD10 Worksheet Patient Problems: Problems Problem Status Onset Acute coronary syndrome Acute Carcinoma, lung Acute Infarction of spleen Acute Pneumothorax after biopsy Acute Pulmonary embolism Acute
[2018-02-27] MEDS: ENOXAPARIN 120 MG/0.8 ML SYR SC SCH (20:03)
[2018-02-27] MEDS: MIRTAZAPINE 15 MG TAB PO SCH (21:12)
[2018-02-27] MEDS: ZOLPIDEM TARTRATE 5 MG TAB PO PRN (21:12)
[2018-02-28] MEDS: amLODIPine BESYLATE 5 MG TAB PO SCH (08:55)
[2018-02-28] MEDS: ASPIRIN EC 81 MG TAB PO SCH (08:56)
[2018-02-28] MEDS: CHOLECALCIFEROL VIT D3 1,000 UNITS TAB PO SCH (08:56)
[2018-02-28] MEDS: ESCITALOPRAM OXALATE 10 MG TAB PO SCH (08:58)
[2018-02-28] MEDS: DUTASTERIDE 0.5 MG CAP PO SCH (08:58)
[2018-02-28] MEDS: ISOSORBIDE MONONITRATE 30 MG TAB.SR PO SCH (08:59)
[2018-02-28] MEDS: predniSONE 20 MG TAB PO SCH (09:00)
[2018-02-28] MEDS: PANTOPRAZOLE SODIUM 40 MG TAB PO SCH (09:00)
[2018-02-28] MEDS: ROSUVASTATIN CALCIUM 20 MG TAB PO SCH (09:00)
[2018-02-28] MEDS: TARCEVA PO SCH (10:24)
--- NOTE | 2018-02-28 12:42 | SOAPPROG ---
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 * Initial functional independence measure is 73 on 02/28/2018. Standby assist for mobility and stairs. Ambulated 300 ft with a tracking pole. Climbed and descended a flight of stairs with 1 rail standby assist. Requires assist for O2 with mobility. Grooming hygiene were done with standby assist needed cues for orientation for dressing but otherwise standby assist. Toilet transfer and toileting with distance supervision. Bath transfer contact guard assist, bathing with supervision. Abnormalities on the MV PT regarding object recollection, figure/ground and other visual processing issues. * Continue PT and OT with the goal of achieving standby assist to modified independence with mobility and activities of daily living. * PET scan was unrevealing regarding brain lesions. Cognitive impairment status post CVA with slow speed of processing, decreased executive function and decreased attention, and mild receptive aphasia. * Continue Speech and Language Pathology. Hypoxia. PET scan shows right upper lobe pneumonitis consistent with possible congestive heart failure; not consistent with lymphangitic spread of cancer. Continue oxygen and will have incentive spirometry. * BNP added-on sample from 02/24/2018 not consistent with CHF. He does not clinically appear to be in CHF. He had mild LVH, normal ejection fraction, no diastolic dysfunction, and mild to moderate aortic regurgitation on echocardiogram 02/15/2018. * Trial of albuterol metered dose inhaler if he has symptoms of chest tightness. * Trial of prednisone 20 mg p.o. Q.day, ordered per Oncology, started 02/27/2018. Prinzmetal angina. Continue amlodipine, isosorbide mononitrate, aspirin, and p.r.n. nitroglycerin. Rosuvastatin was also started for this indication. * Responded to nitroglycerin 02/25/2018. Cancer hypercoagulability. Considered to have possibly had breakthrough thrombosis and emboli while on rivaroxaban, resumed prior therapy with enoxaparin. Also on aspirin. * Hematochezia reported per nurse. No anemia on CBC. Platelet count improving on CBC 02/24/2018. Needs to continue full anticoagulation. only stop aspirin for life-threatening bleed. 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 Continue full anticoagulation. Depression versus anxiety. Continue escitalopram, as well as mirtazapine. Non-small cell lung cancer. Erlotinib discontinued per Oncology. Planning to start atizolimumab per Oncology when it becomes available. Lung tumor had grown while on erlotinib, and pneumonitis and Prinzmetal's angina may be due to erlotinib. Prognosis per Oncology is months. Will initiate palliative care upon discharge home. Prophylaxis. There is no need for additional prophylaxis beyond the enoxaparin and aspirin that he is receiving regarding risk for thrombosis. He requires both enoxaparin and aspirin due to embolic phenomena while he was on rivaroxaban. There is no history of stomach ulcers, and he has been on anticoagulation for a prolonged period of time. We will not initiate GI prophylaxis. DISPOSITION: Attended staffing, 15 min. Discussed with case management, dietitian, nursing, PT, OT, HAND STAMPER. Attended family conference, 30 min, with 1 son in attendance as well as another family member, and other son participating by telephone. Discussed care needs for discharge home including continuing standby assist for mobility especially with stairs or uneven terrain and help with oxygen management; repetition and clarification regarding receptive aphasia ; and consistent structure at home. Plan for discharge 03/02/2018. Will allow time to provide training for caregivers and to optimize functional status. Will continue home PT OT and HAND STAMPER. Will have home hired caregivers, home palliative care, and assistance by family members. Follow up. Oncologist Dr. Rodrigue Cisneros on 02/28/2018, sanitary inspector Dr. Edwin Ritchie, and primary care provider, Dr. David Damian after his discharge from inpatient rehabilitation. 02/28/18 12:42 Subjective: No chest pain, cough or dyspnea. No fevers or chills. Objective: Vital Signs Temp Pulse Resp BP Pulse Ox 36.6 C 70 17 141/85 H 92 02/28/18 07:24 02/28/18 07:24 02/28/18 07:24 02/28/18 07:24 02/28/18 07:24 Laboratory Results 02/25/18 06:50 02/24/18 06:00 02/27/18 02/28/18 03/01/18 05:59 05:59 05:59 Intake Total 360 0 120 Output Total 450 200 Balance -90 -200 120 - Time Spent With Patient Time Spent With Patient: Greater than 35 min floor time today, including more than 50% of time in coordination of care during staffing and family meetings, and counseling patient and family during family meeting. Physical Exam - Physical Exam General Appearance: WD/WN, alert, no apparent distress Respiratory: normal breath sounds, No crackles, No rhonchi, No wheezing Cardiac/Chest: regular rate, rhythm, No diastolic murmur, No systolic murmur Skin: normal color, warm/dry Neuro/Psych: alert, normal mood/affect, oriented x 3, cognition abnormalities ( Requires repetition for comprehension), other (Ambulating independently with trekking pole.) ICD10 Worksheet Patient Problems: Problems Problem Status Onset Acute coronary syndrome Acute Carcinoma, lung Acute Infarction of spleen Acute Pneumothorax after biopsy Acute Pulmonary embolism Acute
[2018-02-28] MEDS: NITROGLYCERIN 0.4 MG BTL SL PRN (19:13)
[2018-02-28] MEDS: ENOXAPARIN 120 MG/0.8 ML SYR SC SCH (20:24)
[2018-02-28] MEDS: ZOLPIDEM TARTRATE 5 MG TAB PO PRN (20:25)
[2018-02-28] MEDS: MIRTAZAPINE 15 MG TAB PO SCH (20:25)
[2018-03-01] MEDS: amLODIPine BESYLATE 5 MG TAB PO SCH (08:39)
[2018-03-01] MEDS: ASPIRIN EC 81 MG TAB PO SCH (08:40)
[2018-03-01] MEDS: CHOLECALCIFEROL VIT D3 1,000 UNITS TAB PO SCH (08:40)
[2018-03-01] MEDS: PANTOPRAZOLE SODIUM 40 MG TAB PO SCH (08:41)
[2018-03-01] MEDS: DUTASTERIDE 0.5 MG CAP PO SCH (08:43)
[2018-03-01] MEDS: ESCITALOPRAM OXALATE 10 MG TAB PO SCH (08:43)
[2018-03-01] MEDS: predniSONE 20 MG TAB PO SCH (08:44)
[2018-03-01] MEDS: ROSUVASTATIN CALCIUM 20 MG TAB PO SCH (08:44)
[2018-03-01] MEDS: ISOSORBIDE MONONITRATE 30 MG TAB.SR PO SCH (08:44)
--- NOTE | 2018-03-01 14:04 | SOAPPROG ---
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 * Initial functional independence measure is 73 on 02/28/2018. Standby assist for mobility and stairs. Ambulated 300 ft with a trekking pole. Climbed and descended a flight of stairs with 1 rail. standby assist. Requires assist for O2 with mobility. Grooming hygiene were done with standby assist needed cues for orientation for dressing but otherwise standby assist. Toilet transfer and toileting with distance supervision. Bath transfer contact guard assist, bathing with supervision. Abnormalities on the MVPT regarding object recollection, figure/ground and other visual processing issues. * Continue PT and OT with the goal of achieving standby assist to modified independence with mobility and activities of daily living. * PET scan was unrevealing regarding brain lesions. Cognitive impairment status post CVA with slow speed of processing, decreased executive function and decreased attention, and mild receptive aphasia. * Continue Speech and Language Pathology. Hypoxia. PET scan shows right upper lobe pneumonitis consistent with possible congestive heart failure; not consistent with lymphangitic spread of cancer. Continue oxygen and will have incentive spirometry. * BNP added-on sample from 02/24/2018 not consistent with CHF. He does not clinically appear to be in CHF. He had mild LVH, normal ejection fraction, no diastolic dysfunction, and mild to moderate aortic regurgitation on echocardiogram 02/15/2018. * Trial of prednisone 20 mg p.o. Q.day, ordered per Oncology, started 02/27/2018. Prinzmetal angina. Continue amlodipine, isosorbide mononitrate, aspirin, and p.r.n. nitroglycerin. Rosuvastatin was also started for this indication. * Responded to nitroglycerin 02/25/2018. Lip swelling, possible canker sore, noted 03/01/2018. Prescribed triamcinolone in [facility]. Cancer hypercoagulability. Considered to have possibly had breakthrough thrombosis and emboli while on rivaroxaban, resumed prior therapy with enoxaparin. Also on aspirin. * Hematochezia reported per nurse. No anemia on CBC. Platelet count improving on CBC 02/24/2018. Needs to continue full anticoagulation. only stop aspirin for life-threatening bleed. 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 Continue full anticoagulation. Depression versus anxiety. Continue escitalopram, as well as mirtazapine. Non-small cell lung cancer. Erlotinib discontinued per Oncology. Planning to start atizolimumab per Oncology when it becomes available. Lung tumor had grown while on erlotinib, and pneumonitis and Prinzmetal's angina may be due to erlotinib. Prognosis per Oncology is months. Will initiate palliative care upon discharge home. Prophylaxis. There is no need for additional prophylaxis beyond the enoxaparin and aspirin that he is receiving regarding risk for thrombosis. He requires both enoxaparin and aspirin due to embolic phenomena while he was on rivaroxaban. There is no history of stomach ulcers, and he has been on anticoagulation for a prolonged period of time. We will not initiate GI prophylaxis. DISPOSITION: Has care needs for discharge home including continuing standby assist for mobility especially with stairs or uneven terrain and help with oxygen management; repetition and clarification regarding receptive aphasia; and consistent structure at home. Plan for discharge 03/02/2018. Will continue home PT OT and SANDWICH BOARD CARRIER. Will have home hired caregivers, home palliative care, and assistance by family members. Follow up. Oncologist Dr. Rodrigue Cisneros, environmental service aide Dr. Edwin Ritchie, and primary care provider, Dr. David Damian after his discharge from inpatient rehabilitation. 03/01/18 14:00 Subjective: Complains of swelling and tenderness in the right upper lip. Otherwise without complaints. Reports that he had some chest pain yesterday and took some medication for it. No chest pain today. No cough or dyspnea. Objective: Vital Signs Temp Pulse Resp BP Pulse Ox 36.9 C 74 16 153/88 H 94 03/01/18 06:07 03/01/18 06:07 03/01/18 06:07 03/01/18 06:07 03/01/18 06:07 Laboratory Results 02/25/18 06:50 02/24/18 06:00 02/28/18 03/01/18 03/02/18 05:59 05:59 05:59 Intake Total 0 1170 550 Output Total 200 450 300 Balance -200 720 250 Physical Exam - Physical Exam General Appearance: WD/WN, alert, no apparent distress EENT: other (Right upper lip with swelling just inside the mouth, approximately 0.5 cm, with whitish center.) Respiratory: normal breath sounds, No crackles, No rhonchi, No wheezing Cardiac/Chest: regular rate, rhythm, No diastolic murmur, No systolic murmur Skin: normal color, warm/dry Neuro/Psych: alert, normal mood/affect, oriented x 3 ICD10 Worksheet Patient Problems: Problems Problem Status Onset Acute coronary syndrome Acute Carcinoma, lung Acute Infarction of spleen Acute Pneumothorax after biopsy Acute Pulmonary embolism Acute
[2018-03-01] MEDS: TRIAMCINOLONE 0.1% 5GM CREAM DT SCH ×2 (15:20→19:09)
--- NOTE | 2018-03-01 18:10 | GDS ---
[f rep st] DISCHARGE SUMMARY ADMISSION DIAGNOSIS: Multifocal cerebrovascular accident. DISCHARGE DIAGNOSIS: Multifocal cerebrovascular accident. OTHER DISCHARGE DIAGNOSES: 1. Cognitive impairment, status post cerebrovascular accident. 2. Hypoxia with right upper lobe pneumonitis. 3. Prinzmetal angina. 4. Cancer hypercoagulability. PROCEDURES: There were none. COMPLICATIONS: There were none. CONSULTATIONS: He was seen in consultation by his oncologist, Dr. Cisneros. HISTORY/HOSPITAL COURSE: This patient came from [facility], where he had been diagnosed with a multifocal CVA with more lesions in the left parietal lobe than other regions of the brain. The etiology was considered to be cardioembolic and due to cancer hypercoagulability. He has non-small cell lung cancer and has been treated with erlotinib with control of the tumor until repeat PET scanning done on 2017. He came to rehabilitation with deficits to mobility, activities of daily living , and cognition. His initial functional independence measure was 73 on 2017, consistent with needing assistance at the long term level of care. He is requiring standby assist for mobility and stair climbing, though he was able to ambulate 350 feet with a trekking pole. He is able to climb and descend a flight of stairs with 1 rail and standby assist. He required assistance for managing his oxygen with mobility. He needed standby assist for grooming and hygiene and he needed cues for orientation of clothing while he was dressing, but otherwise dressing was done with standby assist. Toilet transfer and toileting were done with distant supervision. Bath transfer required contact guard assist and he bathes with supervision. He had multiple abnormalities in visual processing including object recognition, figure ground discrimination, and other visual processing issues. He was noted to have cognitive impairment with reduced speed of processing and decreased executive function and attention. Additionally, he had a mild receptive aphasia. For these, he was treated with speech and language pathology. He requires repetition and clarification. Regarding hypoxia, congestive heart failure was ruled out. There was no pneumonia. PET scan showed a pneumonitis and ruled out lymphangitic spread of cancer. The hypoxia was considered to be due to pneumonitis, which likely was caused by his chemotherapy agent, erlotinib. He needs continuous oxygen at 3 L/ minute. Prednisone was added per oncologist, Dr. Cisneros, in an attempt to treat pneumonitis. Prinzmetal angina. This was also considered to be possibly due to erlotinib. It was diagnosed during his hospitalization and treatment was initiated with amlodipine, isosorbide mononitrate, aspirin, rosuvastatin, and p.r.n. nitroglycerin. His strokes and also a splenic infarction that was noted, were considered to be due to cancer hypercoagulability. He had been on rivaroxaban for this indication and this was considered to be a breakthrough. He was treated with enoxaparin and aspirin. There was hematochezia and epistaxis during his stay, but after discussion with Cardiology, it was advised that he is to continue full anticoagulation and would only stop for life-threatening bleed. Regarding non-small cell lung cancer, he had a followup with Oncology. PET scan showed growth of the primary tumor. Erlotinib was discontinued. Oncology reported that they are planning to start atezolizumab as a second-line agent whenever it becomes available. Oncology advised that his prognosis was probably only months. CONDITION UPON DISCHARGE: Good. ACTIVITY: Ad dalton but he needs standby assist to contact guard assist for mobility related activities of daily living and for assistance managing oxygen with mobility related tasks. DIET: Regular. DISCHARGE DISPOSITION: Is to home with assistance by his family as well as hired home health. Additionally, there will be a palliative care agency becoming involved in his care. MEDICATIONS UPON DISCHARGE: 1. Acetaminophen 650 mg p.o. q.4 hours p.r.n. 2. Amlodipine 5 mg p.o. daily. 3. Aspirin 81 mg p.o. daily. 4. Cholecalciferol 4000 units p.o. daily. 5. Dutasteride 0.5 mg p.o. daily. 6. Enoxaparin 120 mg subcutaneous daily. 7. Epinephrine 0.3 mg IM once p.r.n. symptoms of anaphylaxis. 8. Escitalopram 10 mg p.o. daily. 9. Isosorbide mononitrate 30 mg p.o. daily. 10. Mirtazapine 15 mg p.o. q.h.s. 11. Nitroglycerin 0.4 mg sublingual q.5 minutes x3 p.r.n. chest pain. 12. Pantoprazole 40 mg p.o. daily. 13. Prednisone 20 mg p.o. daily. 14. Rosuvastatin 20 mg p.o. daily. 15. Sodium chloride nasal spray p.r.n. 16. Zolpidem 5 mg p.o. q.h.s. ISSUES TO BE ADDRESSED AT FOLLOWUP: 1. Functional status and cognition. He will continue PT, OT, and MASTER SHIP after his discharge. 2. Hypoxia. To continue 3 L of oxygen and to continue prednisone until his followup with Oncology, Dr. Cisneros. 3. Prinzmetal angina. To continue his current medications and he will have a followup with spark plug assembler, Dr. Edwin Ritchie. 4. Cancer hypercoagulability. To continue enoxaparin. 5. Non-small cell lung cancer. He will follow up with Dr. Cisneros. They are planning a trial of a new biologic agent. He will have palliative care involvement beginning once he gets home with [facility] agency. /[id number]/MODL MTDD
[2018-03-01] MEDS: ENOXAPARIN 120 MG/0.8 ML SYR SC SCH (19:07)
[2018-03-01] MEDS: ZOLPIDEM TARTRATE 5 MG TAB PO PRN (21:17)
[2018-03-01] MEDS: MIRTAZAPINE 15 MG TAB PO SCH (21:17)
[2018-03-02] MEDS: CHOLECALCIFEROL VIT D3 1,000 UNITS TAB PO SCH (08:44)
[2018-03-02] MEDS: ASPIRIN EC 81 MG TAB PO SCH (08:44)
[2018-03-02] MEDS: DUTASTERIDE 0.5 MG CAP PO SCH (08:44)
[2018-03-02] MEDS: ESCITALOPRAM OXALATE 10 MG TAB PO SCH (08:44)
[2018-03-02] MEDS: ROSUVASTATIN CALCIUM 20 MG TAB PO SCH (08:53)
[2018-03-02] MEDS: predniSONE 20 MG TAB PO SCH (08:54)
[2018-03-02] MEDS: PANTOPRAZOLE SODIUM 40 MG TAB PO SCH (08:54)
[2018-03-02] MEDS: ISOSORBIDE MONONITRATE 30 MG TAB.SR PO SCH (08:57)
[2018-03-02] MEDS: amLODIPine BESYLATE 5 MG TAB PO SCH (08:57)
[2018-03-02 08:58] VITALS: BP 143/77
[2018-03-02] MEDS: TRIAMCINOLONE 0.1% 5GM CREAM DT SCH ×2 (13:06)
== END 2018-03-02 13:56 | disposition home health service (06) | DRG 56 ==
LOC: BREH 15:26
PROVIDERS: ADMIT Internal Medicine; ATTEND Internal Medicine
DX: I69.918 Other symptoms and signs involving cognitive functions following unspecified cerebrovascular disease (principal); R41.841 Cognitive communication deficit; I74.8 Embolism and thrombosis of other arteries; J70.2 Acute drug-induced interstitial lung disorders; T45.1X5A Adverse effect of antineoplastic and immunosuppressive drugs, initial encounter; C79.51 Secondary malignant neoplasm of bone; C34.90 Malignant neoplasm of unspecified part of unspecified bronchus or lung; I21.4 Non-ST elevation (NSTEMI) myocardial infarction; I20.1 Angina pectoris with documented spasm; I35.1 Nonrheumatic aortic (valve) insufficiency; D69.6 Thrombocytopenia, unspecified; G47.33 Obstructive sleep apnea (adult) (pediatric); N40.0 Benign prostatic hyperplasia without lower urinary tract symptoms; F32.9 Major depressive disorder, single episode, unspecified; Z79.01 Long term (current) use of anticoagulants; Z86.711 Personal history of pulmonary embolism; Z92.3 Personal history of irradiation
CPT/HCPCS: 92507-GN; 92523-GN; 97110-GP; 97112-GP; 97116-GP; 97162-GP; 97165-GO; 97530-GO; 97530-GP; 97535-GO; 99366-GN; 99366-GO; G0515-GO; J1650; J7512

== ENCOUNTER 2018-04-14 10:20 | Outpatient (CLI) | payer OTHER ==
[2018-04-14 17:27] VITALS: BP 106/55
== END 2018-04-14 16:40 | disposition home or self-care (01) ==
LOC: FOBOP 10:20
PROVIDERS: ATTEND Internal Medicine Hematology & Oncology
PROC: 30233N1 Transfusion of Nonautologous Red Blood Cells into Peripheral Vein, Percutaneous Approach (ICD-10-PCS; principal; 2018-04-14)
DX: C34.90 Malignant neoplasm of unspecified part of unspecified bronchus or lung (principal)
CPT/HCPCS: 36430; P9016

== ENCOUNTER → 2019-01-07 | Outpatient (CLI) | payer OTHER | LOC: EMCIMAGING 14:50 | PROVIDERS: ATTEND Nurse Practitioner | DX: R92.8 Other abnormal and inconclusive findings on diagnostic imaging of breast (principal); C34.12 Malignant neoplasm of upper lobe, left bronchus or lung; C34.90 Malignant neoplasm of unspecified part of unspecified bronchus or lung; I81 Portal vein thrombosis; K80.20 Calculus of gallbladder without cholecystitis without obstruction | CPT/HCPCS: 74183-PN ==

== ENCOUNTER 2019-01-24 12:11 | Inpatient (IN) | payer OTHER | END 2019-01-26 15:04 | disposition E | LOC: F2N 01-26 06:50 → F2W 15:40 ==